=== PATIENT | male | born 1955 | race Caucasian/White ===

== ENCOUNTER 2017-11-24 10:35 | Inpatient (IN) | payer MEDICAID ==
--- OUTSIDE RECORDS SUMMARY | 2017-11-24 14:58 | XMS REPORT ---
:1955 External Reference #:[id number] [facility] Address [address], [address] [place] [address] Phone [phone] Care Team Providers Name Role Phone Anil Sood MD Care Team Information Spa Technician Unavailable Anil Sood MD Primary Care Physician Unavailable Payers Type Date Identification Numbers Payment Provider Subscriber Medicaid Policy Number: [id number] Medicaid [employer] Name: 1 1 [address] PayID: [id number] [place] [address] Problems Date Description Provider Status Onset: 05/22/2011 Arthralgia of the ankle and/or foot Dale Dai M.D. , Active FACS Onset: 05/22/2011 Closed fracture of lateral Dale Dai M.D., Active malleolus FACS Onset: 05/22/2011 [facility] Traumatic Dale Dai M.D., Active Fracture Of Other Bone FACS Onset: 07/01/2011 Unilateral inguinal hernia with Ernesto Correa M.D. Active gangrene Onset: 07/01/2011 Chronic paranoid schizophrenia Ernesto Correa M.D. Active Onset: 07/01/2011 Colostomy present Ernesto Correa M.D. Active Onset: 08/28/2015 Syncope and collapse Amybo Short, ANP Active Onset: 08/28/2015 Electrocardiogram abnormal Amybo Short, ANP Active Onset: 08/28/2015 High enzyme level in serum Amy Bessy Short ANP Active Onset: 08/28/2015 Essential hypertension ALMAZ Stevenson Active Onset: 08/28/2015 Schizophrenia Baljit Russ M.D. Active Onset: 10/22/2016 Constipation Miguelangel Velasquez MD,EWELINA Active Onset: 10/22/2016 Incisional hernia Miguelangel Velasquez MD,FACS Active Family History Date Family Member(s) Problem(s) Comments General Diabetes Father due to Cancer () Mother due to Congestive Heart Failure () First Brother due to Colon Cancer () Second Brother Hypertension Second Brother High Cholesterol Second Brother Diabetes First Sister due to MS () Social History Type Date Description Comments Lives With [facility] [place] Diet Patient follows no dietary restrictions Occupation Disabled Hand Dominance Right-handed Cigarette Use Never Smoked Cigarettes ETOH Use Denies alcohol use Recreational Drug Use Denies Drug Use Smoking Patient has never smoked Daily Caffeine Patient consumes minimal amounts of 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 Currently on 05/22/11. Allergies, Adverse Reactions, Alerts Date Description Reaction Status Severity Comments 05/22/2011 NKDA active Medications Medication Date Status Form Strength Qnty SIG Indications Ordering Provider Loratadine Active Tablets 10mg 30tab 1 by mouth Unknown /0000 s every day Nasal 00 Active Solution 0.65% Use qid prn Unknown Moisturizer /0000 Ibuprofen Active Tablets 400mg 1 tab every Unknown /0000 6 hours as needed Saline Nasal Active Solution 0.65% 1 sprays Unknown [place] /0000 each nostirl q 4 hrs prn Aspirin Adult Active Tablets DR 81mg 1 by mouth Unknown Low Dose /0000 every day Benztropine Active Tablets 0.5mg take 1 tab Unknown Mesylate /0000 po bid Artificial Tears Active Solution 1.4% 1-2 drops Unknown /0000 twice a day as needed Antacid Anti-Gas Active Suspension 200-200-2 30 cubic Unknown /0000 0mg/5ML centimeters by mouth every 4 hours as needed Polyethylene 00 Active Powder 1 capful Unknown Glycol 1000 /0000 (17 grams) in 8 oz of fluid twice a day Quetiapine Active Tablets 300mg 1 by mouth Unknown Fumarate /0000 every night at bedtime Lamotrigine Active Tablets 50 take 2 tabs Unknown po bid Perphenazine Active Tablets 16mg 1 by mouth Unknown twice a day Levetiracetam Active Tablets 500mg 60tab 1 tab by Unknown / s mouth twice a day Omeprazole Active Capsules DR 20mg 1 by mouth Unknown every day Acetaminophen Active Tablets 325mg 120ta 2 by mouth Unknown bs every 4 hours as needed for pain Docusate Sodium Active Capsules 100mg take 1 Unknown capsule by mouth twice daily as needed for constipatio n Fluticasone Active Suspension 50mcg/Act 1 spray Unknown Propionate Nasal into each [place] 24- Hour nostril twice a day as needed Azelastine HCL Active Solution 0.1% use 1 spray Unknown (Nasal) both nostrils twice a day as needed Bismuth Citrate Active Powder 30 cc by Unknown mouth every 4 hrs as needed Miralax 11/04 Hx Powder [id number] 1unit day before s procedure: [facility], - at 6pm bianca LUKE,FACS 02/11 bottle in 64 ounce gatorade. drink a 8 ounce glass every 15-20 mins until gone. Dulcolax 11/[address] 5mg 4tabs 2 tablets taken at [facility], - 6pm and 9pm ,FACS 02/11 the before the procedure Lisinopril 09/30 Hx Tablets 2.5mg 1 by mouth every day MD Haja - at bedtime 11/26 Lisinopril Hx Tablets 5mg 1 po qd - 09/30 Lipitor Hx Tablets 10mg 90tab 1 po qd s - 06/[address] 30mg 60cap 1 po qd Unknown s - 06/19 Singulair Hx Tablets 10mg 1 po qhs Flonase Hx Suspension 50mcg/Act 1 intranasal - qd 06/19 Prozac Hx Capsules 40mg 1 po qd Colace 00 Hx Capsules 100mg 30cap 1 po bid Unknown / s - 06/19 Multivitamins 00/ Hx Capsules 1 by mouth Unknown /0000 every day - 06/19 Tylenol Hx Tablets 325mg 2 by mouth Unknown /0000 every 4 - hours as 11/03 Haloperidol 00 Hx Tablets 1mg three times Unknown /0000 a day as needed Protonix Hx Tablets DR 40mg 30tab 1 po qd Unknown / s Trifluoperazine Hx Tablets 10mg every night Unknown HCL /0000 Trazodone HCL Hx Tablets 25mg 1 po qhs Unknown / Geodon Hx Capsules 80mg tid Unknown / - 08/06 Mylanta Hx Suspension 200-200-2 30 Unknown / 0mg/5ML milliliters by mouth every 4 hours as needed Multi Vitamin Hx Tablets I PO qd Unknown Daily /0000 Colace Hx Capsules 100mg 60cap 1 by mouth Unknown / s twice a day - 10/[address] 20mg 30cap 1 by mouth Unknown / s every day Metformin HCL ER Hx Tablets ER 500mg 30tab 1 by mouth Unknown /0000 24HR s every day Dulcolax Hx Tablets DR 5mg 2 PO Q 3 Unknown / Day prn Artificial Tears Hx Solution 0.1-0.3% 1 Drop tid Unknown /0000 To OU prn Sertraline HCL Hx Tablets 100mg 30tab 1 by mouth Unknown / s every day Miralax Hx Packet [id number] 17g by Unknown /0000 mouth twice a day as needed constipatio n. Seroquel Hx Tablets 100mg 1 by mouth Unknown /0000 at bedtime - 10/22 Clotrimazole Hx Cream 1% apply to Unknown /0000 affected area three times a day Keppra Hx Tablets 500mg 1 Tab PO Unknown /0000 bid - 10/22 Pantoprazole Hx Solution 40mg 1 by mouth Unknown Sodium /0000 Rec every day - 11/03 Miralax Hx Packet [id number] 17g by Unknown /0000 mouth twice - a day as 11/04 constipatio n. Vital Signs Date Vital Result Comment 11/03/2017 BP Systolic Sitting Right Arm 144 mmHg Pt hasn't had food or meds today BP Diastolic Sitting Right Arm 80 mmHg Pt hasn't had food or meds today Body Temperature 97.3 F Heart Rate 80 /min Respiratory Rate 17 /min Height 73 inches 6'1" Weight 244.00 lb BMI (Body Mass Index) 32.2 kg/m2 BSA (Body Surface Area) 2.34 m2 Ashley body weight in kilograms 83 09/24/2017 Height 73 inches 6'1" Weight 214.00 lb BMI (Body Mass Index) 28.2 kg/m2 BSA (Body Surface Area) 2.21 m2 Ashley body weight in kilograms 83 02/11/2017 BP Systolic 112 mmHg BP Diastolic 78 mmHg Height 73 inches 6'1" Weight 214.00 lb BMI (Body Mass Index) 28.2 kg/m2 BSA (Body Surface Area) 2.21 m2 Ashley body weight in kilograms 83 11/26/2016 BP Systolic 124 mmHg BP Diastolic 76 mmHg Height 73 inches 6'1" Weight 195.00 lb BMI (Body Mass Index) 25.7 kg/m2 BSA (Body Surface Area) 2.13 m2 Ashley body weight in kilograms 83 10/22/2016 BP Systolic 130 mmHg BP Diastolic 78 mmHg Height 73 inches 6'1" Weight 197.00 lb BMI (Body Mass Index) 26.0 kg/m2 BSA (Body Surface Area) 2.14 m2 Ashley body weight in kilograms 83 10/13/2016 BP Systolic 138 mmHg BP Diastolic 88 mmHg Height 73 inches 6'1" Weight 193.00 lb BMI (Body Mass Index) 25.5 kg/m2 BSA (Body Surface Area) 2.12 m2 09/30/2016 BP Systolic Sitting Left Arm 104 mmHg BP Diastolic Sitting Left Arm 68 mmHg Heart Rate 97 /min Respiratory Rate 17 /min Height 73 inches 6'1" Weight 187.00 lb BMI (Body Mass Index) 24.7 kg/m2 BSA (Body Surface Area) 2.09 m2 08/28/2015 BP Systolic Sitting Right Arm 120 mmHg BP Diastolic Sitting Right Arm 62 mmHg Heart Rate 80 /min Respiratory Rate 16 /min Height 73 inches 6'1" Weight 187.00 lb BMI (Body Mass Index) 24.7 kg/m2 BSA (Body Surface Area) 2.09 m2 08/07/2015 BP Systolic Sitting Left Arm 112 mmHg BP Diastolic Sitting Left Arm 58 mmHg Heart Rate 82 /min Height 73 inches 6'1" Weight 190.00 lb BMI (Body Mass Index) 25.1 kg/m2 BSA (Body Surface Area) 2.11 m2 11/29/2014 Height 73 inches 6'1" Weight 189.00 lb BMI (Body Mass Index) 24.9 kg/m2 BSA (Body Surface Area) 2.10 m2 08/23/2014 BP Systolic Sitting Right Arm 97 mmHg BP Diastolic Sitting Right Arm 59 mmHg Heart Rate 82 /min Respiratory Rate 18 /min Height 73 inches 6'1" Weight 194.00 lb BMI (Body Mass Index) 25.6 kg/m2 BSA (Body Surface Area) 2.12 m2 06/20/2011 Height 71 inches 5'11", Estimated Weight 235.00 lb Estimated BMI (Body Mass Index) 32.8 kg/m2 Results Test Date Test Result H/L Range Note Laboratory test finding 03/18/2016 Glucose,Bedside 104 mg/dL 70-110 1 Laboratory test finding 09/30/2014 Vancomycin,Trough 5.0 ug/mL Low 15.0- 20.0 2 Basic Metabolic Panel 09/30/2014 Glucose 80 mg/dL 74-106 BUN 10 mg/dL 7-18 Creatinine 1.2 mg/dL 0.6-1.3 Glom Filtration Rate, Estimate >60 mL/min >60 If >60 mL/min >60 3 BUN/Creat 8.3 ratio Sodium 138 mmol/L 136-145 Potassium 4.5 mmol/L 3.5-5.1 Chloride 102 mmol/L 98-107 Carbon Dioxide 33 mmol/L High 21-32 Anion Gap 3 mEq/L Low 8-16 Calcium 9.4 mg/dL 8.5-10.1 Basic Metabolic Panel 09/29/2014 Glucose 86 mg/dL 74-106 BUN 12 mg/dL 7-18 Creatinine 1.2 mg/dL 0.6-1.3 Glom Filtration Rate, Estimate >60 mL/min >60 If >60 mL/min >60 4 BUN/Creat 10.0 ratio Sodium 136 mmol/L 136-145 Potassium 4.5 mmol/L 3.5-5.1 Chloride 101 mmol/L 98-107 Carbon Dioxide 30 mmol/L 21-32 Anion Gap 5 mEq/L Low 8-16 Calcium 9.0 mg/dL 8.5-10.1 Laboratory test finding 09/29/2014 Vancomycin,Trough 7.2 ug/mL Low 15.0- 20.0 Laboratory test finding 09/28/2014 Osmolality,Urine 108 mOsm/kg Low 250- 900 Basic Metabolic Panel 09/28/2014 Glucose 102 mg/dL 74-106 BUN 13 mg/dL 7-18 Creatinine 1.4 mg/dL High 0.6-1.3 Glom Filtration Rate, Estimate 55 mL/min >60 If >60 mL/min >60 5 BUN/Creat 9.2 ratio Sodium 136 mmol/L 136-145 Potassium 4.5 mmol/L 3.5-5.1 Chloride 101 mmol/L 98-107 Carbon Dioxide 30 mmol/L 21-32 Anion Gap 5 mEq/L Low 8-16 Calcium 8.8 mg/dL 8.5-10.1 CBC 09/28/2014 White Blood Count 9.3 K/uL 3.4-10.5 Red Blood Count 4.41 M/uL 4.20-5.80 Hemoglobin 13.2 gm/dL 12.8-17.0 Hematocrit 38.7 % 38.0-48.0 Mean Cell Volume 87.8 fl 80.0-96.0 Mean Corpuscular HGB 29.9 pg 27.0-33.0 Mean Corpuscular HGB Conc 34.1 g/dL 31.7-36.0 Platelet Count 239 K/uL 150-400 Red Cell Distri Width %CV 14.0 % 11.6-15.8 Mean Platelet Volume 9.2 fL 6.6-10.6 Laboratory test finding 09/28/2014 Sodium 139 mmol/L 136-145 Laboratory test finding 09/27/2014 Urine Sodium, Random 61 mEq/L Urinalysis With Microscopic 09/27/2014 Urine Color YELLOW Yellow Urine Clarity CLEAR Clear Urine Glucose - Dipstick NEGATIVE mg/dL Negative Urine Bilirubin - Dipstick NEGATIVE Negative Urine Ketone NEGATIVE mg/dL Negative Urine Specific [place] 1.010 1.010-1.030 Urine Blood LARGE High Negative Urine PH 7.5 6.5-7.5 Urine Protein - Dipstick NEGATIVE mg/dL Negative Urine Urobilinogen - Dipstick 0.2 E.U./dL 0.2-1.0 Urine Nitrite - Dipstick POSITIVE High Negative Urine Leuk Esterase MODERATE High Negative Urine RBC 0-2 rbc/hpf 0-2 Urine WBC 2-5 wbc/hpf 0-7 Urine Epithelial Cells NONE SEEN NONESEEN/lpf Urine Bacteria MODERATE NONESEEN High Urine Amorph Sediment SMALL Negative Laboratory test finding 09/27/2014 Urine Screen See Note 6 Basic Metabolic Panel 09/27/2014 Glucose 90 mg/dL 74-106 BUN 13 mg/dL 7-18 Creatinine 1.6 mg/dL High 0.6-1.3 Glom Filtration Rate, Estimate 47 mL/min >60 If 57 mL/min >60 7 BUN/Creat 8.1 ratio Sodium 137 mmol/L 136-145 Potassium 4.5 mmol/L 3.5-5.1 Chloride 103 mmol/L 98-107 Carbon Dioxide 28 mmol/L 21-32 Anion Gap 6 mEq/L Low 8-16 Calcium 8.6 mg/dL 8.5-10.1 Basic Metabolic Panel 09/27/2014 Glucose 77 mg/dL 74-106 BUN 12 mg/dL 7-18 Creatinine 1.1 mg/dL 0.6-1.3 Glom Filtration Rate, Estimate >60 mL/min >60 If >60 mL/min >60 8 BUN/Creat 10.9 ratio Sodium 136 mmol/L 136-145 Potassium 4.6 mmol/L 3.5-5.1 Chloride 104 mmol/L 98-107 Carbon Dioxide 24 mmol/L 21-32 Anion Gap 8 mEq/L 8-16 Calcium 8.5 mg/dL 8.5-10.1 Basic Metabolic Panel 09/27/2014 Glucose 88 mg/dL 74-106 BUN 13 mg/dL 7-18 Creatinine 1.2 mg/dL 0.6-1.3 Glom Filtration Rate, Estimate >60 mL/min >60 If >60 mL/min >60 9 BUN/Creat 10.8 ratio Sodium 138 mmol/L 136-145 Potassium 4.4 mmol/L 3.5-5.1 Chloride 105 mmol/L 98-107 Carbon Dioxide 27 mmol/L 21-32 Anion Gap 6 mEq/L Low 8-16 Calcium 8.5 mg/dL 8.5-10.1 Basic Metabolic Panel 09/26/2014 Glucose 124 mg/dL High 74-106 BUN 11 mg/dL 7-18 Creatinine 1.1 mg/dL 0.6-1.3 Glom Filtration Rate, Estimate >60 mL/min >60 If >60 mL/min >60 10 BUN/Creat 10.0 ratio Sodium 129 mmol/L Low 136-145 Potassium 4.2 mmol/L 3.5-5.1 Chloride 96 mmol/L Low 98-107 Carbon Dioxide 23 mmol/L 21-32 Anion Gap 10 mEq/L 8-16 Calcium 7.9 mg/dL Low 8.5-10.1 Basic Metabolic Panel 09/26/2014 Glucose 101 mg/dL 74-106 BUN 13 mg/dL 7-18 Creatinine 1.0 mg/dL 0.6-1.3 Glom Filtration Rate, Estimate >60 mL/min >60 If >60 mL/min >60 11 BUN/Creat 13.0 ratio Sodium 123 mmol/L Low 136-145 12 Potassium 4.6 mmol/L 3.5-5.1 Chloride 91 mmol/L Low 98-107 Carbon Dioxide 25 mmol/L 21-32 Anion Gap 7 mEq/L Low 8-16 Calcium 8.0 mg/dL Low 8.5-10.1 Blood Culture 09/26/2014 Blood Culture Aerobic See Note 13 Blood Culture Anaerobic See Note 14 Laboratory test finding 09/26/2014 Uric Acid 3.6 mg/dL 3.5-7.2 15 Blood Culture 09/26/2014 Blood Culture Aerobic See Note - 16 Blood Culture Anaerobic See Note - 17 Drugs Of Abuse-Urine Screen 7 09/26/2014 Amphetamines (Urine) Negative Barbiturates (Urine) Negative Benzodiazepines (Urine) Negative Cannabinoids (Urine) Negative Cocaine Metabolite (Urine) Negative Methadone (Urine) Negative Opiates (Urine) POSITIVE High Please Note # 18 Urine Cutoffs * 19 Urinalysis With Microscopic 09/26/2014 Urine Color YELLOW Yellow Urine Clarity CLEAR Clear Urine Glucose - Dipstick NEGATIVE mg/dL Negative Urine Bilirubin - Dipstick NEGATIVE Negative Urine Ketone NEGATIVE mg/dL Negative Urine Specific [place] 1.015 1.010-1.030 Urine Blood TRACE Negative Urine PH 5.5 Low 6.5-7.5 Urine Protein - Dipstick NEGATIVE mg/dL Negative Urine Urobilinogen - Dipstick 0.2 E.U./dL 0.2-1.0 Urine Nitrite - Dipstick POSITIVE High Negative Urine Leuk Esterase SMALL High Negative Urine RBC 0-2 rbc/hpf 0-2 Urine WBC 5-10 wbc/hpf 0-7 Urine Epithelial Cells FEW NONESEEN/lpf Urine Bacteria MODERATE NONESEEN High Laboratory test finding 09/26/2014 Culture If Indicated Comment See Note 20 Urine Screen See Note 21 Urine Culture See Note 22 Osmolality,Urine 489 mOsm/kg 250-900 Urine Creatinine Random 43 mg/dL Urine Sodium, Random 83 mEq/L Urine Potassium Random 17.7 mEq/L Urine Uric Acid Random 51.3 NotEstab.mg/d 23 Urine Urea Nitrogen,Random See Note 24 Laboratory test finding 09/26/2014 Aot Request Test(s) added 25 Osmolality,Serum See Note 26 Laboratory test finding 09/26/2014 Osmolality,Serum 249 mOsm/kg Low 275- 295 Comprehensive Metabolic Panel 09/26/2014 Glucose 118 mg/dL High 74-106 BUN 15 mg/dL 7-18 Creatinine 1.1 mg/dL 0.6-1.3 Glom Filtration Rate, Estimate >60 mL/min >60 If >60 mL/min >60 27 BUN/Creat 13.6 ratio Sodium 120 mmol/L Low 136-145 Potassium 4.1 mmol/L 3.5-5.1 Chloride 87 mmol/L Low 98-107 Carbon Dioxide 16 mmol/L Low 21-32 Anion Gap 17 mEq/L High 8-16 Calcium 7.8 mg/dL Low 8.5-10.1 Total Protein 6.2 g/dL Low 6.4-8.2 Albumin 3.3 g/dL Low 3.4-5.0 Globulin 2.9 g/dL 1.9-4.3 Alb/Glob 1.1 ratio Bilirubin,Total 0.2 mg/dL 0.2-1.0 Sgot/Ast 22 U/L 15-37 SGPT/Alt 25 U/L 12-78 Alkaline Phosphatase 59 U/L 45-117 Laboratory test finding 09/26/2014 Thyroid Stim Hormone 4.49 uIU/mL High 0.36-3.74 28 Ethyl Alcohol < 3.0 mg/dL CBC W/Automated Diff 09/26/2014 White Blood Count 12.2 K/uL High 3.4-10.5 Red Blood Count 4.05 M/uL Low 4.20-5.80 Hemoglobin 12.2 gm/dL Low 12.8-17.0 Hematocrit 35.0 % Low 38.0-48.0 Mean Cell Volume 86.4 fl 80.0-96.0 Mean Corpuscular HGB 30.1 pg 27.0-33.0 Mean Corpuscular HGB Conc 34.9 g/dL 31.7-36.0 Platelet Count 240 K/uL 150-400 Red Cell Distri Width SD 40.8 fl 36-51 Red Cell Distri Width %CV 13.1 % 11.6-15.8 Mean Platelet Volume 8.9 fL 6.6-10.6 Neut% 81.0 % High 33.0-73.0 Lymph % 8.7 % Low 17.0-56.0 [place] % 9.2 % 0.0-10.0 Eo% 0.9 % 0.0-5.0 Bas% 0.2 % 0.1-1.0 Neut# 9.86 K/uL High 1.8-7.0 Lymph # 1.06 K/uL Low 1.8-7.0 [place] # 1.12 K/uL High 0.0-0.8 Eos # 0.11 K/uL 0.0-0.5 Baso # 0.03 K/uL Low 0.1-0.2 Laboratory test finding 09/22/2014 Hernia Sac Non-Inguinal See Note 29 Site Laboratory test finding 11/19/2011 Thyroxine (T4) 11.9 g/dL 5.3-14.8 Thyroid Stim Hormone 5.24 uIU/mL High 0.49-4.67 Glycohemoglobin A1c 11/10/2011 Glycohemoglobin (A1c) 5.4 % 4.8-6.0 30 eAG 108 mg/dL LDL Cholesterol Profile 11/10/2011 Cholesterol 141 mg/dL 120-200 Triglycerides 88 mg/dL 16-231 HDL Cholesterol 45 mg/dL 29-83 LDL-Cholesterol 78 mg/dL 62-185 Basic Metabolic Panel 11/10/2011 Glucose 91 mg/dL 76-115 BUN 15 mg/dL 5-23 Creatinine 1.2 mg/dL 0.5-1.4 Glom Filtration Rate, Estimate >60 mL/min >60 If >60 mL/min >60 31 BUN/Creat 12.5 ratio Sodium 137 mmol/L 136-145 Potassium 4.6 mmol/L 3.5-5.1 Chloride 102 mmol/L 98-107 Carbon Dioxide 28 mEq/L 18-29 Anion Gap 12 mEq/L 8-16 Calcium 9.3 mg/dL 8.5-10.1 CBC 08/18/2011 White Blood Count 7.7 K/uL 3.4-10.5 Red Blood Count 4.28 M/uL 4.20-5.80 Hemoglobin 11.9 gm/dL Low 12.8-17.0 Hematocrit 35.3 % Low 38.0-48.0 Mean Cell Volume 82.5 fl 80.0-96.0 Mean Corpuscular HGB 27.8 pg 27.0-33.0 Mean Corpuscular HGB Conc 33.7 g/dL 31.7-36.0 Platelet Count 294 K/uL 150-400 Red Cell Distri Width %CV 13.2 % 11.6-15.8 Mean Platelet Volume 8.9 fL 6.6-10.6 Laboratory test finding 08/18/2011 Thyroid Stim Hormone 6.05 uIU/mL High 0.49-4.67 Free T4 1.00 ng/dL 0.71-1.85 Comprehensive Metabolic Panel 08/18/2011 Glucose 83 mg/dL 76-115 BUN 11 mg/dL 5-23 Creatinine 0.9 mg/dL 0.5-1.4 Glom Filtration Rate, Estimate >60 mL/min >60 If >60 mL/min >60 32 BUN/Creat 12.2 ratio Sodium 131 mmol/L Low 136-145 Potassium 4.5 mmol/L 3.5-5.1 Chloride 95 mmol/L Low 98-107 Carbon Dioxide 27 mEq/L 18-29 Anion Gap 14 mEq/L 8-16 Calcium 9.0 mg/dL 8.5-10.1 Total Protein 6.5 g/dL 6.3-8.0 Albumin 3.3 g/dL Low 3.5-5.0 Globulin 3.2 g/dL 1.9-4.3 Alb/Glob 1.0 ratio Bilirubin,Total 0.3 mg/dL 0.2-1.2 Sgot/Ast 7 U/L Low 16-40 SGPT/Alt 18 U/L Low 30-65 Alkaline Phosphatase 51 U/L 50-136 CBC 07/14/2011 White Blood Count 7.0 K/uL 3.4-10.5 Red Blood Count 3.87 M/uL Low 4.20-5.80 Hemoglobin 10.9 gm/dL Low 12.8-17.0 Hematocrit 34.9 % Low 38.0-48.0 Mean Cell Volume 90.2 fl 80.0-96.0 Mean Corpuscular HGB 28.2 pg 27.0-33.0 Mean Corpuscular HGB Conc 31.2 g/dL Low 31.7-36.0 Platelet Count 303 K/uL 150-400 Red Cell Distri Width %CV 13.8 % 11.6-15.8 Mean Platelet Volume 9.1 fL 6.6-10.6 CBC 07/11/2011 White Blood Count 7.8 K/uL 3.4-10.5 Red Blood Count 3.75 M/uL Low 4.20-5.80 Hemoglobin 10.6 gm/dL Low 12.8-17.0 Hematocrit 33.3 % Low 38.0-48.0 Mean Cell Volume 88.8 fl 80.0-96.0 Mean Corpuscular HGB 28.3 pg 27.0-33.0 Mean Corpuscular HGB Conc 31.8 g/dL 31.7-36.0 Platelet Count 226 K/uL 150-400 Red Cell Distri Width %CV 13.5 % 11.6-15.8 Mean Platelet Volume 9.2 fL 6.6-10.6 Basic Metabolic Panel 07/10/2011 Glucose 76 mg/dL 76-115 BUN 11 mg/dL 5-23 Creatinine 1.0 mg/dL 0.5-1.4 Glom Filtration Rate, Estimate >60 mL/min >60 If >60 mL/min >60 33 BUN/Creat 11.0 ratio Sodium 138 mmol/L 136-145 Potassium 3.9 mmol/L 3.5-5.1 Chloride 101 mmol/L 98-107 Carbon Dioxide 30 mEq/L High 18-29 Anion Gap 11 mEq/L 8-16 Calcium 8.5 mg/dL 8.5-10.1 CBC 07/10/2011 White Blood Count 7.7 K/uL 3.4-10.5 Red Blood Count 3.57 M/uL Low 4.20-5.80 Hemoglobin 10.1 gm/dL Low 12.8-17.0 Hematocrit 31.8 % Low 38.0-48.0 Mean Cell Volume 89.1 fl 80.0-96.0 Mean Corpuscular HGB 28.3 pg 27.0-33.0 Mean Corpuscular HGB Conc 31.8 g/dL 31.7-36.0 Platelet Count 221 K/uL 150-400 Red Cell Distri Width %CV 14.0 % 11.6-15.8 Mean Platelet Volume 9.0 fL 6.6-10.6 Anaerobic Culture W/ GR Stain 07/08/2011 Anaerobic Culture W/ GR See Note 34 Stain Gram Stain; Anaerobic Specimen See Note 35 Anaerobic Culture See Note 36 Routine Culture W/ Gram Stain 07/08/2011 Gram Stain See Note 37 Aerobic Culture See Note 38 Laboratory test 07/08/2011 Colon PRTL See Note 39 finding Resection,Non-Tumor CBC 07/08/2011 White Blood Count 7.7 K/uL 3.4-10.5 Red Blood Count 4.88 M/uL 4.20-5.80 Hemoglobin 14.0 gm/dL 12.8-17.0 Hematocrit 42.7 % 38.0-48.0 Mean Cell Volume 87.5 fl 80.0-96.0 Mean Corpuscular HGB 28.7 pg 27.0-33.0 Mean Corpuscular HGB Conc 32.8 g/dL 31.7-36.0 Platelet Count 317 K/uL 150-400 Red Cell Distri Width %CV 13.8 % 11.6-15.8 Mean Platelet Volume 8.9 fL 6.6-10.6 Urine Screen 07/03/2011 Urine Color STRAW Yellow Urine Clarity CLEAR Clear Urine Glucose - Dipstick NEGATIVE mg/dL Negative Urine Bilirubin - Dipstick NEGATIVE Negative Urine Ketone NEGATIVE mg/dL Negative Urine Specific [place] <=1.005 Low 1.010-1.030 Urine Blood NEGATIVE Negative Urine PH 5.0 Low 6.5-7.5 Urine Protein - Dipstick NEGATIVE mg/dL Negative Urine Urobilinogen - Dipstick 0.2 E.U./dL 0.2-1.0 Urine Nitrite - Dipstick NEGATIVE Negative Urine Leuk Esterase NEGATIVE Negative Liver Function Tests 07/03/2011 Total Protein 6.7 g/dL 6.3-8.0 Albumin 3.1 g/dL Low 3.5-5.0 Globulin 3.6 g/dL 1.9-4.3 Alb/Glob 0.9 ratio Bilirubin,Total 0.2 mg/dL 0.2-1.2 Bilirubin,Direct < 0.1 mg/dL Low 0.1-0.4 Bilirubin,Indirect 0.1 mg/dL 0.0-0.9 Sgot/Ast 11 U/L Low 16-40 SGPT/Alt 16 U/L Low 30-65 Alkaline Phosphatase 74 U/L 50-136 Basic Metabolic Panel 07/03/2011 Glucose 83 mg/dL 76-115 BUN 21 mg/dL 5-23 Creatinine 1.0 mg/dL 0.5-1.4 Glom Filtration Rate, Estimate >60 mL/min >60 If >60 mL/min >60 40 BUN/Creat 21.0 ratio Sodium 140 mmol/L 136-145 Potassium 4.9 mmol/L 3.5-5.1 Chloride 103 mmol/L 98-107 Carbon Dioxide 30 mEq/L High 18-29 Anion Gap 12 mEq/L 8-16 Calcium 9.1 mg/dL 8.5-10.1 CBS W/Automated Diff 07/03/2011 White Blood Count 7.4 K/uL 3.4-10.5 Red Blood Count 4.56 M/uL 4.20-5.80 Hemoglobin 12.9 gm/dL 12.8-17.0 Hematocrit 40.1 % 38.0-48.0 Mean Cell Volume 87.9 fl 80.0-96.0 Mean Corpuscular HGB 28.3 pg 27.0-33.0 Mean Corpuscular HGB Conc 32.2 g/dL 31.7-36.0 Platelet Count 293 K/uL 150-400 Red Cell Distri Width SD 44.2 fl 36-51 Red Cell Distri Width %CV 14.0 % 11.6-15.8 Mean Platelet Volume 8.9 fL 6.6-10.6 Neut% 64.0 % 33.0-73.0 Lymph % 20.6 % 17.0-56.0 [place] % 12.7 % High 0.0-10.0 Eo% 2.3 % 0.0-5.0 Bas% 0.4 % 0.1-1.0 Neut# 4.72 K/uL 1.8-7.0 Lymph # 1.52 K/uL 1.2-4.0 [place] # 0.94 K/uL High 0.0-0.6 Eos # 0.17 K/uL 0.0-0.5 Baso # 0.03 K/uL Low 0.1-0.2 Laboratory test finding 06/27/2011 Albumin 3.1 g/dL Low 3.5-5.0 CBS W/Automated Diff 05/15/2011 White Blood Count 12.5 K/uL High 3.4-10.5 Red Blood Count 4.05 M/uL Low 4.20-5.80 Hemoglobin 11.5 gm/dL Low 12.8-17.0 Hematocrit 36.1 % Low 38.0-48.0 Mean Cell Volume 89.1 fl 80.0-96.0 Mean Corpuscular HGB 28.4 pg 27.0-33.0 Mean Corpuscular HGB Conc 31.9 g/dL 31.7-36.0 Platelet Count 472 K/uL High 150-400 Red Cell Distri Width %CV 16.0 % High 11.6-15.8 Mean Platelet Volume 9.0 fL 6.6-10.6 Neut% 80.8 % High 33.0-73.0 Lymph % 9.7 % Low 17.0-56.0 [place] % 8.0 % 0.0-10.0 Eo% 1.2 % 0.0-5.0 Bas% 0.3 % 0.1-1.0 Neut# 10.13 K/uL High 1.8-7.0 Lymph # 1.22 K/uL 1.2-4.0 [place] # 1.00 K/uL High 0.0-0.6 Eos # 0.15 K/uL 0.0-0.5 Baso # 0.04 K/uL Low 0.1-0.2 Red Cell Distri Width SD 48.5 fl 36-51 CBS W/Automated Diff 05/14/2011 White Blood Count 12.5 K/uL High 3.4-10.5 Red Blood Count 3.67 M/uL Low 4.20-5.80 Hemoglobin 10.7 gm/dL Low 12.8-17.0 Hematocrit 32.2 % Low 38.0-48.0 Mean Cell Volume 87.7 fl 80.0-96.0 Mean Corpuscular HGB 29.2 pg 27.0-33.0 Mean Corpuscular HGB Conc 33.2 g/dL 31.7-36.0 Platelet Count 368 K/uL 150-400 Red Cell Distri Width %CV 15.5 % 11.6-15.8 Mean Platelet Volume 9.3 fL 6.6-10.6 Red Cell Distri Width SD 46.1 fl 36-51 Differential-WBC Confirm 05/14/2011 Total Cells Counted 100 #CELLS Myelocyte% 1 % High -0 Band% 1 % 0-8 Neutrophils% 83 % High 33-73 Lymph% 11 % Low 17-56 Atypical Lymph% 1 % 0-7 Monocyte% 1 % 0-10 Eosinophil% 2 % 0-5 Platelet Estimate NORMAL Polychromasia 0-1+ Ovalocytes 0-1+ Toxic Granulation 1+ Meservey Cells 0-1+ Differential-WBC Confirm See Note 41 Basic Metabolic Panel 05/12/2011 Glucose 98 mg/dL 76-115 BUN 13 mg/dL 5-23 Creatinine 0.9 mg/dL 0.5-1.4 Glom Filtration Rate, Estimate >60 mL/min >60 If >60 mL/min >60 42 BUN/Creat 14.4 ratio Sodium 140 mmol/L 136-145 Potassium 3.7 mmol/L 3.5-5.1 Chloride 105 mmol/L 98-107 Carbon Dioxide 27 mEq/L 18-29 Anion Gap 12 mEq/L 8-16 Calcium 8.5 mg/dL 8.5-10.1 CBC 05/12/2011 White Blood Count 16.3 K/uL High 3.4-10.5 Red Blood Count 4.19 M/uL Low 4.20-5.80 Hemoglobin 12.0 gm/dL Low 12.8-17.0 Hematocrit 35.9 % Low 38.0-48.0 Mean Cell Volume 85.7 fl 80.0-96.0 Mean Corpuscular HGB 28.6 pg 27.0-33.0 Mean Corpuscular HGB Conc 33.4 g/dL 31.7-36.0 Platelet Count 406 K/uL High 150-400 Red Cell Distri Width %CV 14.5 % 11.6-15.8 Mean Platelet Volume 9.2 fL 6.6-10.6 Basic Metabolic Panel 05/10/2011 Glucose 97 mg/dL 76-115 BUN 16 mg/dL 5-23 Creatinine 0.9 mg/dL 0.5-1.4 Glom Filtration Rate, Estimate >60 mL/min >60 If >60 mL/min >60 43 BUN/Creat 17.7 ratio Sodium 140 mmol/L 136-145 Potassium 3.2 mmol/L Low 3.5-5.1 Chloride 106 mmol/L 98-107 Carbon Dioxide 27 mEq/L 18-29 Anion Gap 10 mEq/L 8-16 Calcium 7.8 mg/dL Low 8.5-10.1 Laboratory test finding 05/10/2011 Thyroid Stim Hormone 3.51 uIU/mL 0.49- 4.67 CBS W/Automated Diff 05/10/2011 White Blood Count 13.2 K/uL High 3.4-10.5 Red Blood Count 3.92 M/uL Low 4.20-5.80 Hemoglobin 11.3 gm/dL Low 12.8-17.0 Hematocrit 33.7 % Low 38.0-48.0 Mean Cell Volume 86.0 fl 80.0-96.0 Mean Corpuscular HGB 28.8 pg 27.0-33.0 Mean Corpuscular HGB Conc 33.5 g/dL 31.7-36.0 Platelet Count 290 K/uL 150-400 Red Cell Distri Width %CV 13.8 % 11.6-15.8 Mean Platelet Volume 9.6 fL 6.6-10.6 Red Cell Distri Width SD 42.2 fl 36-51 Differential-WBC Confirm 05/10/2011 Total Cells Counted 100 #CELLS Myelocyte% 2 % High -0 Metamyelocyte% 2 % High -0 Neutrophils% 80 % High 33-73 Lymph% 4 % Low 17-56 Monocyte% 12 % High 0-10 Platelet Estimate NORMAL Polychromasia 0-1+ Hypochromia 0-1+ Anisocytosis 1+ Ovalocytes 1+ Toxic Granulation 0-1+ Basic Metabolic Panel 05/08/2011 Glucose 95 mg/dL 76-115 BUN 21 mg/dL 5-23 Creatinine 1.1 mg/dL 0.5-1.4 Glom Filtration Rate, Estimate >60 mL/min >60 If >60 mL/min >60 44 BUN/Creat 19.0 ratio Sodium 148 mmol/L High 136-145 Potassium 3.3 mmol/L Low 3.5-5.1 Chloride 113 mmol/L High 98-107 Carbon Dioxide 26 mEq/L 18-29 Anion Gap 12 mEq/L 8-16 Calcium 7.9 mg/dL Low 8.5-10.1 CBC W/Automated Diff 05/08/2011 White Blood Count 10.5 K/uL 3.4-10.5 Red Blood Count 3.59 M/uL Low 4.20-5.80 Hemoglobin 10.3 gm/dL Low 12.8-17.0 Hematocrit 32.0 % Low 38.0-48.0 Mean Cell Volume 89.1 fl 80.0-96.0 Mean Corpuscular HGB 28.7 pg 27.0-33.0 Mean Corpuscular HGB Conc 32.2 g/dL 31.7-36.0 Platelet Count 275 K/uL 150-400 Red Cell Distri Width %CV 14.4 % 11.6-15.8 Mean Platelet Volume 9.2 fL 6.6-10.6 Red Cell Distri Width SD 45.5 fl 36-51 Differential-WBC Confirm 05/08/2011 Total Cells Counted 100 #CELLS Band% 7 % 0-8 Neutrophils% 75 % High 33-73 Lymph% 8 % Low 17-56 Monocyte% 10 % 0-10 Platelet Estimate NORMAL RBC Morphology NORMAL Basic Metabolic Panel 05/05/2011 Glucose 92 mg/dL 76-115 BUN 20 mg/dL 5-23 Creatinine 1.0 mg/dL 0.5-1.4 Glom Filtration Rate, Estimate >60 mL/min >60 If >60 mL/min >60 45 BUN/Creat 20.0 ratio Sodium 143 mmol/L 136-145 Potassium 3.8 mmol/L 3.5-5.1 Chloride 111 mmol/L High 98-107 Carbon Dioxide 27 mEq/L 18-29 Anion Gap 9 mEq/L 8-16 Calcium 8.2 mg/dL Low 8.5-10.1 CBC 05/05/2011 White Blood Count 6.4 K/uL 3.4-10.5 Red Blood Count 3.81 M/uL Low 4.20-5.80 Hemoglobin 10.8 gm/dL Low 12.8-17.0 Hematocrit 33.8 % Low 38.0-48.0 Mean Cell Volume 88.7 fl 80.0-96.0 Mean Corpuscular HGB 28.3 pg 27.0-33.0 Mean Corpuscular HGB Conc 32.0 g/dL 31.7-36.0 Platelet Count 223 K/uL 150-400 Red Cell Distri Width %CV 14.0 % 11.6-15.8 Mean Platelet Volume 8.6 fL 6.6-10.6 Routine Culture W/ Gram Stain 05/04/2011 Gram Stain See Note 46 Aerobic Culture See Note 47 Anaerobic Culture W/ GR Stain 05/04/2011 Gram Stain; Anaerobic See Note 48 Specimen Anaerobic Culture See Note 49 Laboratory test finding 05/04/2011 Colon PRTL Resection,Non-Tumor See Note 50 1 SCHIZOPHRENIA, DIABETES, HTN, GERD, HYPERLIPIDEMIA 2 Comments to fur plucker: DOSING PER PHARMACY 3 Note: Persistent reduction for 3 months or more in an eGFR <60 mL/min/1.73 m2 defines CKD. Patients with eGFR values >/=60 mL/min/1.73 m2 may also have CKD if evidence of persistent proteinuria is present. The original MDRD equation for estimated GFR is not valid for patients less than 18 years of age. Additional information may be found at [email or web address]. 4 Note: Persistent reduction for 3 months or more in an eGFR <60 mL/min/1.73 m2 defines CKD. Patients with eGFR values >/=60 mL/min/1.73 m2 may also have CKD if evidence of persistent proteinuria is present. The original MDRD equation for estimated GFR is not valid for patients less than 18 years of age. Additional information may be found at [email or web address]. 5 Note: Persistent reduction for 3 months or more in an eGFR <60 mL/min/1.73 m2 defines CKD. Patients with eGFR values >/=60 mL/min/1.73 m2 may also have CKD if evidence of persistent proteinuria is present. The original MDRD equation for estimated GFR is not valid for patients less than 18 years of age. Additional information may be found at [email or web address]. 6 09/28/14 LAB.CKS Deleted by [facility] 7 Note: Persistent reduction for 3 months or more in an eGFR <60 mL/min/1.73 m2 defines CKD. Patients with eGFR values >/=60 mL/min/1.73 m2 may also have CKD if evidence of persistent proteinuria is present. The original MDRD equation for estimated GFR is not valid for patients less than 18 years of age. Additional information may be found at [email or web address]. 8 Note: Persistent reduction for 3 months or more in an eGFR <60 mL/min/1.73 m2 defines CKD. Patients with eGFR values >/=60 mL/min/1.73 m2 may also have CKD if evidence of persistent proteinuria is present. The original MDRD equation for estimated GFR is not valid for patients less than 18 years of age. Additional information may be found at [email or web address]. 9 Note: Persistent reduction for 3 months or more in an eGFR <60 mL/min/1.73 m2 defines CKD. Patients with eGFR values >/=60 mL/min/1.73 m2 may also have CKD if evidence of persistent proteinuria is present. The original MDRD equation for estimated GFR is not valid for patients less than 18 years of age. Additional information may be found at [email or web address]. 10 Note: Persistent reduction for 3 months or more in an eGFR <60 mL/min/1.73 m2 defines CKD. Patients with eGFR values >/=60 mL/min/1.73 m2 may also have CKD if evidence of persistent proteinuria is present. The original MDRD equation for estimated GFR is not valid for patients less than 18 years of age. Additional information may be found at [email or web address]. 11 Note: Persistent reduction for 3 months or more in an eGFR <60 mL/min/1.73 m2 defines CKD. Patients with eGFR values >/=60 mL/min/1.73 m2 may also have CKD if evidence of persistent proteinuria is present. The original MDRD equation for estimated GFR is not valid for patients less than 18 years of age. Additional information may be found at [email or web address]. 12 Result confirmed by repeat analysis. 13 NO GROWTH: FINAL REPORT 14 NO GROWTH: FINAL REPORT 15 CHECKED + CALLED NOAH TO ABDULLAHI Nguyen AT 1224 09/26/14 16 NO GROWTH: FINAL REPORT 17 NO GROWTH: FINAL REPORT 18 #THIS URINE SPECIMEN SCREENED POSITIVE FOR ONE OF MORE DRUG CLASSES. POSITIVE FINDINGS ARE UNCONFIRMED. CONFIRMATORY TESTING IS SUGGESTED IF FINDINGS ARE UNEXPECTED. PLEASE CONTACT THE LABORATORY IF CONFIRMATORY TESTING IS DESIRED. 19 *THE SUBMITTED URINE SPECIMEN WAS SCREENED AT THE LISTED [facility] DRUG CLASS INITIAL TEST LEVEL Amphetamines 1000 ng/mL Barbiturates 200 ng/mL Benzodiazepines 200 ng/mL Cannabinoids 50 ng/mL Cocaine Metabolite 300 ng/mL Methadone 300 ng/mL Opiates 300 ng/mL 20 CULTURE TO FOLLOW 09/26/14 LAB.EMM1 Deleted by [facility] [place] 22 Organism 1 ! MIXED URETHRAL NINA Quantity ! > 100,000 CFU/mL SPECIMEN IS A MIX OF GRAM NEGATIVE AND GRAM POSITIVE ORGANISMS. UNABLE TO DETERMINE WHICH ORGANISMS ARE FROM THE URINARY TRACT OR THE RESULT OF SKIN/COMMENSAL CONTAMINATION DURING COLLECTION. SUGGEST REPEAT SPECIMEN IF CLINICALLY INDICATED. HOLDING ISOLATE IN MICROBIOLOGY LAB. PLEASE CALL [phone] IF FULL ID/OR SUSCEPTIBILITY DESIRED. 23 09/26/14 LAB.RAP SENT OUT, PUT ON SEPARATE REQ 24 09/26/14 LAB.RAP SENT OUT, PUT ON SEPARATE REQ 25 Tests: osmolality, uric acid, Instructions: 26 ADDED TO C242 BLOOD TESTS 27 Note: Persistent reduction for 3 months or more in an eGFR <60 mL/min/1.73 m2 defines CKD. Patients with eGFR values >/=60 mL/min/1.73 m2 may also have CKD if evidence of persistent proteinuria is present. The original MDRD equation for estimated GFR is not valid for patients less than 18 years of age. Additional information may be found at [email or web address]. 28 CHECKED + CALLED NOAH TO ABDULLAHI Nguyen AT 1224 09/26/14 29 OPERATION/PROCEDURE Repair of ventral incisional hernias x 2 with mesh. DIAGNOSIS: "VENTRAL HERNIA SAC": HERNIAL SAC. Maverick GROSS Received in formalin labeled, "VENTRAL HERNIA SAC" are two pieces of ferguson- purple rubbery fibrous tissue with a smooth serosal lining measuring 4.2 x 3.4 x 1.0 cm. and 4.8 x 3.9 x 2.4 cm. No tumor, necrosis is grossly seen. Pail Tester sections are submitted in one block. DEBBY/destini MICROSCOPIC Sections show mesothelial lined tissue with dilated capillaries in a delicate fibrous and mature adipose stroma. PRE OPERATIVE DIAGNOSIS Left abdomen incisional hernia REVIEW CODE CODE: I Signed Electronically signed NADIA CARL MD 09/26/14 1130 30 A1c value between 5.7% and 6.4% is considered at increased risk for diabetes. A1c value greater than 6.5 % is considered essentially diagnostic for Type II diabetes. Current guidelines recommend a treatment goal of <7% for diabetic patients. This method will measure glycosylated hemoglobin variants, HbS, HbG, HbH, HbWayne, HbC, HbE, etc. Other hemoglobin- opathies may give incorrect results with this test. 31 Note: Persistent reduction for 3 months or more in an eGFR <60 mL/min/1.73 m2 defines CKD. Patients with eGFR values >/=60 mL/min/1.73 m2 may also have CKD if evidence of persistent proteinuria is present. The original MDRD equation for estimated GFR is not valid for patients less than 18 years of age. Additional information may be found at [email or web address]. 32 Note: Persistent reduction for 3 months or more in an eGFR <60 mL/min/1.73 m2 defines CKD. Patients with eGFR values >/=60 mL/min/1.73 m2 may also have CKD if evidence of persistent proteinuria is present. The original MDRD equation for estimated GFR is not valid for patients less than 18 years of age. Additional information may be found at [email or web address]. 33 Note: Persistent reduction for 3 months or more in an eGFR <60 mL/min/1.73 m2 defines CKD. Patients with eGFR values >/=60 mL/min/1.73 m2 may also have CKD if evidence of persistent proteinuria is present. The original MDRD equation for estimated GFR is not valid for patients less than 18 years of age. Additional information may be found at [email or web address]. 34 CULTURE IN PROGRESS 35 GRAM STAIN ! FEW WHITE BLOOD CELLS ! NO ORGANISMS SEEN 36 Organism 1 ! NO GROWTH 37 GRAM STAIN ! FEW WHITE BLOOD CELLS ! NO ORGANISMS SEEN 38 NO GROWTH: FINAL REPORT 39 OPERATION/PROCEDURE Closure of colostomy DIAGNOSIS: PART 1. "PROXIMAL COLON, CLOSURE OF COLOSTOMY": COLOSTOMY SITE, WITH HEALING CHANGES. PART 2. "DISTAL COLON, CLOSURE OF COLOSTOMY": SEGMENT OF COLON, CONGESTED. JW 07/09/2011 1038 AM GROSS Part 1; Received in formalin labeled "PROXIMAL COLON" is a 7.3 cm. segment of colon with a diameter of 3.9 cm. One end of the colon is attached to a 3.1 x 0.4 cm. sutured skin opening that is consistent with a colostomy site. The mesocolon measures up to 1.5 cm. in thickness and is attached to the entire length of the colon. After further opening the colonic mucosa is grossly unremarkable. There is no evidence of diverticulum nor tumor. Pail Tester section is submitted in blocks 1A and 1B. Part 2; Received in formalin labeled "DISTAL COLON" is a 6.7 cm. segment of colon with a diameter of up to 2.1 cm. The mesocolon measures up to 2.5 cm. in thickness and 5.1 cm. in width and is attached to the entire length of the appendix. No orientation is provided. The opened end is inked blue and the closed end is painted black and the specimen is opened along the antimesenteric edge. Upon opening the lumen of the colon contains mucous like material and the mucosa itself is grossly unremarkable. There is no evidence of tumor nor hemorrhage. Pail Tester section is submitted as follows: 2A =open end, 2B=closed end, 2C \\E&E\\ 2D=random sections. DEBBY/ava MICROSCOPIC Part 1. Sections reveal segment of colon and attached skin, with non- specific chronic inflammation. Part 2. Sections reveal colonic tissue with congestion. There is no evidence of neoplasia. PRE OPERATIVE DIAGNOSIS S/P strangulated sigmoid colon; avendano \\E&E\\ right inguinal hernia repair REVIEW CODE CODE: I NADIA Marina MD 1038 40 Note: Persistent reduction for 3 months or more in an eGFR <60 mL/min/1.73 m2 defines CKD. Patients with eGFR values >/=60 mL/min/1.73 m2 may also have CKD if evidence of persistent proteinuria is present. The original MDRD equation for estimated GFR is not valid for patients less than 18 years of age. Additional information may be found at [email or web address]. 41 DUPLICATE 42 Note: Persistent reduction for 3 months or more in an eGFR <60 mL/min/1.73 m2 defines CKD. Patients with eGFR values >/=60 mL/min/1.73 m2 may also have CKD if evidence of persistent proteinuria is present. The original MDRD equation for estimated GFR is not valid for patients less than 18 years of age. Additional information may be found at [email or web address]. 43 Note: Persistent reduction for 3 months or more in an eGFR <60 mL/min/1.73 m2 defines CKD. Patients with eGFR values >/=60 mL/min/1.73 m2 may also have CKD if evidence of persistent proteinuria is present. The original MDRD equation for estimated GFR is not valid for patients less than 18 years of age. Additional information may be found at [email or web address]. 44 Note: Persistent reduction for 3 months or more in an eGFR <60 mL/min/1.73 m2 defines CKD. Patients with eGFR values >/=60 mL/min/1.73 m2 may also have CKD if evidence of persistent proteinuria is present. The original MDRD equation for estimated GFR is not valid for patients less than 18 years of age. Additional information may be found at [email or web address]. 45 Note: Persistent reduction for 3 months or more in an eGFR <60 mL/min/1.73 m2 defines CKD. Patients with eGFR values >/=60 mL/min/1.73 m2 may also have CKD if evidence of persistent proteinuria is present. The original MDRD equation for estimated GFR is not valid for patients less than 18 years of age. Additional information may be found at [email or web address]. 46 GRAM STAIN ! NO ORGANISMS SEEN ! BY DIRECT SMEAR 47 NO GROWTH: FINAL REPORT 48 GRAM STAIN ! NO ORGANISMS SEEN ! BY DIRECT SMEAR 49 Organism 1 ! NO GROWTH 50 OPERATION/PROCEDURE Right inguinal hernia repair with absorbable plug, laparotomy, Pete's procedure. DIAGNOSIS: "SIGMOID COLON, SEGMENTAL RESECTION": ACUTE TRANSMURAL ISCHEMIC TYPE NECROSIS CONSISTENT WITH CLINICAL STRANGULATED LARGE BOWEL. PROXIMAL AND DISTAL MARGINS OF EXCISION APPEAR VIABLE. WS/clf 1003 GROSS The specimen is received in a single container additionally labeled, " SIGMOID COLON". This contains a deeply hemorrhagic, unoriented segment of grossly recognizable large bowel. One end has been previously stapled shut and overall this colon is 6.7 cm. in length. Overall the colon measures up to 4.7 x 3.0 cm. in cross-sectional dimension. The mucosal folds are greatly edematous with a transverse area of mucosal necrosis that runs in a band-like fashion measuring 0.6 cm. in overall width, branching from a greater width of 1.0 cm. This region is located 1.7 cm. away from the stapled margin and 5.2 cm. from the unstapled margin. The mucosa on either side is black and necrotic appearing. The remaining mucosal folds have a lessor shade of brown and are alexander at the margins of excision. On the external surface, these transmural area of thinning and white necrotic color is noted. The mesenteric adipose tissue also appears to be dusky and ecchymotic. No gross masses are noted. Pail Tester sections are submitted as follows: A=margin of excision taken from unstapled margin, B=margin of excision taken from stapled margin, both transverse and longitudinal sections are submitted, C,D=extensive sampling of area of mucosal erosion, E=edematous folds closer to unstapled margin. Tissue remaining. WS/clf MICROSCOPIC These sections demonstrate ischemic-type necrosis of colon extending from the mucosa to submucosa and involving nearly all of the thickness of the muscularis propria. The underlying serosa demonstrates vascular congestion and early suppurative- type necrosis. I do not see evidence of dysplasia, nor malignancy. The proximal and distal margins of excision appear viable. PRE OPERATIVE DIAGNOSIS Strangulated right inguinal hernia, indirect with sigmoid colon. REVIEW CODE CODE: I PAN Quan MD 05/06/11 1100 Procedures Date CPT Code Description Status 11/03/2017 61790 FX Metacarpal closed single w/o manipulation Completed 12/03/2016 77220 Eye Exam Est Patient Comprehensive Completed 11/10/2016 56770 Colonoscopy With Biopsy Completed 09/30/2016 28781 EKG-Tracing And Report Completed 04/25/2016 79856 Eye Exam New Patient Comprehensive Completed 08/23/2015 42984 Echocardiogram Complete Completed 08/07/2015 08457 EKG-Tracing And Report Completed 09/22/2014 74430 Implant Of Mesh Or Prothesis For Incisional Hernia Completed Repair 09/22/2014 76317 Repair inisial incisional or ventral hernia; reducible Completed 09/22/2014 27965 Anesthesia, Repair Hernia Lumbar & Ventral Completed 08/04/2011 99615 Radiology, Ankle Complete Completed 07/08/2011 20697 Anesthesia, Lower Abdomen Surgery Not Otherwise Spec Completed 07/08/2011 73531 Closure enterostomy, resection and colorectal Completed anastomosis 07/08/2011 64701 Closure enterostomy, resection and colorectal Completed anastomosis 07/08/2011 12146 Closure enterostomy, resection and colorectal Completed anastomosis 07/02/2011 41580 EKG Interpretation And Report Only Completed 05/22/2011 91315 Radiology, Ankle Complete Completed 05/04/2011 76182 Echocardiogram Complete Completed 05/04/2011 32865 EKG Interpretation And Report Only Completed 05/03/2011 67890 Repair recurrant inguinal hernia, any age; Completed incarcerated/strangled 05/03/2011 64004 Colectomy; partial; end colostomy & closure of Completed distal segment 05/03/2011 48139 Anesthesia, Lower Abdomen Surgery Not Otherwise Spec Completed 04/02/2009 76952 EKG Interpretation And Report Only Completed Encounters Type Date Location Provider CPT E/M Dx Office Visit 09/24/2017 1:45p Surgical Office Saurabh Amaya 23416 L76.34 Zaynab [place] Office Visit 02/11/2017 8:30a Surgical Office Miguelangel Velasquez MD,FACS 18858 K43.2 K59.00 Office Visit 11/26/2016 8:45a Surgical Office Miguelangel Velasquez MD,FACS 14488 K43.2 K59.00 Office Visit 10/22/2016 10:00a Surgical Office Miguelangel Velasquez MD,FACS 04257 K43.2 K59.00 Office Visit 09/30/2016 9:20a [place] [address] Z91.81 I10 Office Visit 08/28/2015 10:00a Cardiology Office ALMAZ Stevenson 16846 R55 R94.31 R74.8 I10 Office Visit 08/07/2015 11:00a [place] [address] R55 R94.31 R74.8 Office Visit 07/20/2015 9:35a [facility] Anais Cespedes M.D. 75632 R55 Medical Center F20.9 Office Visit 05/24/2015 10:21a [facility] Baljit Russ M.D. 09211 G40.409 Medical Center Office Visit 02/22/2015 2:15p Surgical Office Saurabh Amaya 48057 K43.5 Zaynab [place] Office Visit 09/26/2014 1:17p [facility] Rom Samano M.D. 54820 276.1 [facility] 780.39 Office Visit 08/23/2014 11:00a Surgical Office Saurabh [place], 14785 553.21 MHayley 553.29 Office Visit 08/04/2011 10:15a Orthopaedic Office Dale Dai M.D., 45479 824.2 FACS V54.19 V67.4 Office Visit 06/20/2011 11:15a Orthopaedic Office Dale Dai, 49549 V54.19 M.Ayden, FACS 824.2 V54.19 Plan of Care Future Appointment(s):11/17/2017 1:00 pm - Francis Caceres M.D. at [id number]/03/2017 - María Elena Montero, [id number] Disp fx of base of fourth metacarpal bone, left hand, initS63.065A Disloc of metacarpal (bone), proximal end of left hand, initAllComments:Patient is scheduled for a closed reduction, possible percutaneous pinning of left 5th metacarpal dislocation, 4th metacarpal displaced fracture. He obtained medical clearance from his primary care provider this morning. He is heading directly over to the hospital from the office. The remainder of the plan will be per the admission orders.
[2017-11-24] MEDS ORDERED: diPHENhydraMINE IV* 50 MG/ML 1 ml VIAL (BENADRYL) IV PRN (16:42)
[2017-11-24] MEDS ORDERED: Docusate CAP* 100 MG PO PRN (16:42)
[2017-11-24] MEDS ORDERED: Zosyn per Pharmacy* NOTE FOLLOW UP SCH (17:00)
[2017-11-24] MEDS ORDERED: Vancomycin per Pharmacy* NOTE FOLLOW UP SCH (17:00)
[2017-11-24] MEDS ORDERED: ZOSYN 3.375 GM x ONE DOSE over 30 miuntes IVPB ×2 (18:00)
[2017-11-24] MEDS: Acetaminophen TAB* 325 MG PO PRN (18:24)
[2017-11-24 18:28] LABS: EGFR Non-African American 78.7 (>60)
[2017-11-24] MEDS ORDERED: Vancomycin 1500 MG IV - x ONCE IVPB ONE ×4 (19:00→20:00)
[2017-11-24] MEDS: oxyCODONE/Acetamin 5/325 MG* TAB PO PRN (20:04)
[2017-11-24] MEDS ORDERED: Heparin VIAL(*) 5000 UNITS/ML VIAL (FIVE THOUSAND) SUBCUT SCH (21:00)
[2017-11-24] MEDS: ZOSYN 3.375 GM Q8H per EXTENDED INFUSION IVPB SCH ×2 (22:04)
[2017-11-24] MEDS: QUEtiapine TAB* 300 MG PO SCH (22:52)
[2017-11-24] MEDS: Omeprazole CAP* 20 MG PO SCH (22:52)
[2017-11-24] MEDS: Benztropine TAB* 1 MG PO SCH (22:52)
[2017-11-24] MEDS: Perphenazine TAB* 2 MG PO SCH (22:52)
[2017-11-24] MEDS: levETIRAcetam TAB* 500 MG PO SCH (22:52)
[2017-11-24] MEDS: Polyethylene Glycol 3350* 17 GM PACKET PO SCH (22:58)
[2017-11-25] MEDS: NS 0.9% 1000 ML* 1,000 ML IV SCH ×2 (00:06→07:38)
--- NOTE | 2017-11-25 01:10 | HP ---
ADMISSION HISTORY AND PHYSICAL: DATE OF ADMISSION: 11/24/17 ATTENDING PROVIDER: Karan Fowler MD * (DICTATED BY ALVIN BOONE) CHIEF COMPLAINT: Left hand infection. HISTORY OF PRESENT ILLNESS: The patient was admitted to [facility] today, 11/24/17, by orthopedics service after being seen in our office today by Dr. Karan Fowler. He was sent in to the hospital for left hand infection requiring IV antibiotics and surgical procedure intended for tomorrow. The patient has sustained a postoperative infection of the left hand and wrist. Original procedure on November 03, [address] José Miguel Fragoso. H present to [facility] with drainage from a pin site and one pin that had fallen out. The remaining pin was removed on 11/21/17 and he was treated with IV antibiotics. He states that his left hand is not painful at this time. He is right-handed. He lives at [facility] in [place], [place]. Patient states he has tolerated anesthesia well in the past. He does not have known history of blood clots. He denies any history of heart disease or pulmonary disease. PAST MEDICAL HISTORY: Does include schizophrenia; bipolar disorder; epilepsy; hypertension; hyperlipidemia; type 2 diabetes, as listed in chart, though the patient denies this in his history; GERD; hernia; BPH; hydronephrosis; constipation; headaches. PAST SURGICAL HISTORY: Bowel resection, strangulated hernia, colectomy with reversal. ALLERGIES: No known drug allergies. FAMILY HISTORY: Diabetes, hypertension, hyperlipidemia. SOCIAL HISTORY: Nonsmoker. Does not use alcohol. The patient lives at [facility], phone number [phone]. REVIEW OF SYSTEMS: General: Denies fevers or chills. HEENT: Denies headache. Cardiac: Denies chest pain. Respiratory: Denies shortness of breath. GI: Denies any nausea, vomiting, stomach upset. He does have a history of colectomy with reversal which he did not report until scars questioned. : No dysuria Skin: Left hand has been erythematous. Musculoskeletal: Left hand with fracture, pin fixation, infection and then removal of hardware. Endocrine: Chart states history of diabetes. The patient denies such. PHYSICAL EXAMINATION GENERAL: Well-appearing, in no acute distress. HEENT: Normocephalic, atraumatic. Extraocular movements are intact. RESPIRATORY: Lungs Clear to auscultation bilaterally. CARDIAC: S1, S2. No irregular beats. ABDOMEN: Midline infraumbilical surgical incision is well healed as well as scar from previous colostomy. Bowel sounds normoactive. Nontender. No masses. MUSCULOSKELETAL: dressing on left upper extremity was removed. Radial pulse is 2+. Capillary refill less than 2 seconds. Surgical wound was not weeping, but did appear wet. This area was cultured. Mild surrounding erythema. No edema. The patient is able to wiggle all fingers well. Sensation intact throughout all digits. NEURO: Sensation intact to light touch throughout the left hand and digits Psych: Patient communicates well with appropriate conversation and answers to questions. He is a poor historian in that he may not report a medical condition unless reminded. ASSESSMENT: Left hand infection. PLAN: The patient will be n.p.o. at midnight. He will get 1 dose of subcu heparin tonight and then it will be held for tomorrow. He will be started on vanco and Zosyn. Wound culture taken, sent for Gram stain, aerobic and anaerobic cultures. Labs for tomorrow morning include CBC, CMP, and INR. The patient will be on a carbohydrate consistent diet until he becomes n.p.o. due to chart listing history of diabetes. He will not have fingersticks as his last lab value was 89, nonfasting and the patient denies a history of diabetes, he is not on any medication to indicate treatment of diabetes. Hospitalist consult was obtained. Home medications were reviewed and resumed. Medications are currently being put in to the chart as a med rec sent from his custodial by our nursing staff. Patient will be taken to the OR by Dr Fowler for left hand I&D, Possible open reduction and pinning of CMC joint. ALVIN BOONE [id number]/[facility] #: [id number] MTDAsya
--- NOTE | 2017-11-25 01:26 | CONS ---
CC: ALVIN Kasper; Dr. Fowler * CONSULTATION REPORT: DATE OF CONSULT: 11/24/17 REQUESTED BY: Dr. Fowler. PRIMARY CARE PROVIDER: ALVIN Nuñez REASON FOR CONSULT: Medical management of the patient with left hand infection. HISTORY OF PRESENT ILLNESS: Clovis Bryant is a 62-year-old male with history of schizophrenia, bipolar disorder, who presents to the hospital after seeing Dr. Fowler as an outpatient for a visit for left hand infection. Sometime at the end of October of 2017, the patient stated that he slipped, fell and tried to catch his fall guarding with both outstretched hands. He suffered from left 4th and 5th metacarpal fracture and on 11/03/17, Dr. Richmond Valdez performed a closed reduction and percutaneous pinning of the area. Due to the patient's chronic psychiatric issues, he is a very poor historian. From medical records, we are unsure if the patient followed up with his surgeon as an outpatient. Nevertheless, on 11/20/17, the patient came into [facility] complaining of left hand infection. Apparently, 1 pin was already "out " and the other pin was sticking out of his hand and there was purulent drainage in the area. The patient was admitted to [facility] and treated with broad-spectrum antibiotics. I believe he was there only a day or two and discharged on ciprofloxacin 500 mg b.i.d. and Flagyl 500 mg 3 times a day, so he can make an appointment with Dr. Fowler, which was already set up prior to his admission to [place]. The patient was seen by Dr. Fowler today who sent the patient for direct admission and planned incision and drainage of the infected wound in the left hand. Medicine was asked to consult in regards of management of the patient's chronic conditions. PAST MEDICAL HISTORY: Please note that most of that is obtained from past medical records since the patient is a very poor historian and that includes: 1. Schizophrenia. 2. Bipolar disorder. 3. Hypertension. 4. History of sinus tachycardia with PACs in the past. 5. History of chronic kidney disease. 6. History of hernia repair with large bowel resection and colostomy and reversal of colostomy in the past. 7. Dyslipidemia. 8. Gastroesophageal reflux disease. 9. History of asthma. 10. History of fracture of the left ankle. 11. History of left hydronephrosis in the past that resolved. 12. History of inguinal hernia repair bilaterally. MEDICATIONS: Include: 1. Ibuprofen 1200 mg every 6 hours p.r.n. 2. Astepro 0.1% one spray both nostrils b.i.d. 3. Bismuth 30 mL every 4 hours p.r.n. 4. Saline nasal drops 1 spray both nostrils up to 4 times a day p.r.n. 5. Seroquel 300 mg at bedtime. 6. Trilafon 16 mg b.i.d. 7. Prilosec 20 mg daily. 8. Oxycodone with acetaminophen 5/325 mg 1 tablet every 4 hours p.r.n. 9. MiraLAX 17 g b.i.d. 10. Ketorolac 10 mg every 8 hours p.r.n. 11. Keppra 500 mg b.i.d. 12. Fluticasone nasal spray 1 spray both nostrils b.i.d. 13. Colace 200 mg daily. 14. Cogentin 0.5 mg b.i.d. 15. Aspirin 81 mg daily. 16. Claritin 10 mg at bedtime. 17. Acetaminophen on a p.r.n. basis. 18. Maalox 30 mL every 4 hours p.r.n. 19. Artificial Tears on a p.r.n. basis. ALLERGIES: No known drug allergies. FAMILY HISTORY: Mother at 98 of "old age." Father when he was " about 100 or so" from old age as per the patient. SOCIAL HISTORY: The patient denies any tobacco, alcohol or drug use. He lives in an apartment building with a roommate who smokes, but he himself does not smoke. As his surrogate, he named Adelina Hendricks from [place], [place]. REVIEW OF SYSTEMS: Please see history of present illness. The patient stated that ever since his fall 3 or 4 weeks ago, he has been using a cane. He denies marked pain in his left hand after it was treated in [facility]. He stated that the second pin was removed by a physician at [facility]. He denies any fevers or chills. He has been having good appetite. He has no problems with chest pain or shortness of breath and he denies any problems with his heart. Although he has history of asthma in his past medical records, he denies any problems with breathing or wheezing. All the remaining 14 systems were reviewed with the patient and it was somewhat limited due to the patient's baseline mental illness, but were otherwise negative. PHYSICAL EXAM: Blood pressure of 158/73, heart rate of 95 and regular, respiratory rate 20, oxygen saturation 97% on room air and temperature of 98.1. General: The patient is a very pleasant 62-year-old male, who is in no acute distress. The patient is alert and oriented x3, although from the date, he struggles to recall that it is the year 2017 and month November. He knows it is Thursday. The patient is otherwise in no acute distress. HEENT: Head is atraumatic, normocephalic. Eyes: Pupils are equal and reactive to light and accommodation. Oropharynx clear. Mucosa moist. Neck: Supple. No JVD. No bruits bilaterally. Cardiovascular: Regular rate and rhythm. No murmur. Respiratory: Clear to auscultation bilaterally. Abdomen: Soft, nontender. Bowel sounds are present in all 4 quadrants. There was palpable abnormality subcutaneous in the left lower quadrant of his abdomen that the patient stated he has had ever since his colostomy reversal. The area is a subcutaneous mass- like of approximately 4 cm in diameter. The area is nontender to palpation. Extremities: There is no edema. Pulses are +2 bilaterally. There is no clubbing or cyanosis. Please note that the left hand was just wrapped by the orthopedic surgical service and was splinted and I am not going to undo the wrap by the patient's request at this point. From the skin that is exposed from the wrap, there was no evidence of infection. I understand from the description from the orthopedic service that there is an area of a puncture wound on the dorsum of the left hand and may be a small area of cellulitis. Neuro Evaluation: Speech clear. Cranial nerves II through XII are grossly intact. Motor strength is 5/5 bilaterally. LABORATORY DATA: The patient's creatinine was noted to be 0.97 and all the other laboratory data is pending at the time of dictation. ASSESSMENT AND PLAN: 1. In regards to the patient's left hand infection, at this point from what I understand the patient's hardware is already removed. The patient was placed on broad-spectrum antibiotics with vancomycin and Zosyn for this postsurgical site infection. Dr. Fowler plans to take the patient for I and D of the wound tomorrow under nerve block. At this point, I do not have the patient's EKG yet , but the patient has no known heart history that he is aware of. He had been asymptomatic from exercise standpoint and has good exercise tolerance from this what he stated. At this point, I see no contraindications to surgery and he should be an acceptable candidate for the anticipated procedure. 2. In regards to the patient's psychiatric medications, at this point it appears that his schizophrenia is well controlled. He denies any hallucinations and he is pleasant and cooperative. I recommend continuation of his antipsychotic medications. 3. The patient has history of asthma and he is on Flonase nasal spray, which is going to be continued. 4. For DVT prophylaxis, the patient is at moderate risk and heparin was already started by the orthopedic service. Thank you very much for allowing our service to see your patient in consultation. We will follow postoperatively. ADDENDUM: I just received medical records from Dr. Crane's office, who saw the patient at the end of April 2017 for followup seizures. Apparently, he has a history of possible seizures that had been on Keppra at the same dose as currently. At this point, we will continue keeping the patient's Keppra at the same dose. The patient denies seizures currently and in the past several months. Once again, he is a very poor historian. [id number]/[facility] #: [id number] Bessy- [id number]/[facility] #: [id number] DEVANTE
--- NOTE | 2017-11-25 01:26 | CONS ---
CONSULTATION REPORT: ADDENDUM: I just received medical records from Dr. Crane's office, who saw the patient at the end of April 2017 for followup seizures. Apparently, he has a history of possible seizures that had been on Keppra at the same dose as currently. At this point, we will continue keeping the patient's Keppra at the same dose. The patient denies seizures currently and in the past several months. Once again, he is a very poor historian. [id number]/[facility] #: [id number] [facility]
[2017-11-25 06:04] LABS: ABS Basophils 0.1 10^3/ul (0-0.2); ABS Eosinophils 0.2 10^3/ul (0-0.6); ABS Monocytes 0.6 10^3/ul (0-0.8); ABS Neutrophils 5.3 10^3/ul (1.5-7.7); ABS Nucleated RBC 0 10^3/ul; Eosinophil % 3.4 % (0-6); Hematocrit 37 % (42-52); Hemoglobin 12.6 g/dl (14.0-18.0); Lymphocyte % 13.3 % (25-47); Mean Corpuscular HGB Conc 34 g/dl (31-36); Mean Corpuscular Hemoglobin 29 pg (27-31); Mean Corpuscular Volume 84 fL (80-94); Mean Platelet Volume 6.3 um3 (7.4-10.4); Nucleated Red Blood Cells % 0.1; Platelet Count 318 10^3/ul (150-450); Red Blood Count 4.38 10^6/ul (4.00-5.40); Red Cell Distribution Width 14 % (10.5-15); White Blood Count 7.2 10^3/ul (3.5-10.8)
[2017-11-25 06:10] LABS: INR 1.07 (0.77-1.02)
[2017-11-25 06:25] LABS: EGFR Non-African American 84.7 (>60)
[2017-11-25] MEDS: ZOSYN 3.375 GM Q8H per EXTENDED INFUSION IVPB SCH ×4 (06:35→15:41)
[2017-11-25] MEDS: oxyCODONE/Acetamin 5/325 MG* TAB PO PRN ×3 (07:29→22:26)
[2017-11-25] MEDS: levETIRAcetam TAB* 500 MG PO SCH ×2 (07:29→19:44)
[2017-11-25] MEDS: Cetirizine* 10 MG TAB PO SCH (07:29)
[2017-11-25] MEDS: Perphenazine TAB* 2 MG PO SCH ×2 (07:29→19:44)
[2017-11-25] MEDS: Benztropine TAB* 1 MG PO SCH ×2 (07:30→19:44)
[2017-11-25] MEDS: Polyethylene Glycol 3350* 17 GM PACKET PO SCH ×2 (07:44→19:30)
[2017-11-25] MEDS: VANCOMYCIN 1500 MG IVPB SCH ×4 (08:13→19:45)
[2017-11-25] MEDS: Morphine VIAL* 4 MG/ML VIAL (1 ml vial) IV PRN ×2 (11:13→18:19)
--- NOTE | 2017-11-25 13:54 | PN ---
Subjective Date of Service: 11/25/17 Interval History: Pt was examined after he walked 500 feet with good exercise tolerance, no SOB. He is planned t go to OR, no new complaints Objective Active Medications: Acetaminophen (Tylenol Tab*) 650 mg PO Q4H PRN PRN Reason: FEVER/PAIN Last Admin: 11/24/17 18:24 Dose: 650 mg Benztropine Mesylate (Cogentin Tab*) 0.5 mg PO BID [facility] Last Admin: 11/25/17 07:30 Dose: 0.5 mg Cetirizine HCl (Zyrtec*) 10 mg PO DAILY [facility] Last Admin: 11/25/17 07:29 Dose: 10 mg Diphenhydramine HCl (Benadryl Iv*) 25 mg IV Q6H PRN PRN Reason: itching Docusate Sodium (Colace Cap*) 100 mg PO BID PRN PRN Reason: CONSTIPATION Fluticasone Propionate (Flonase Nasal [place] 50mcg*) 1 spray BOTH NARES BID [facility] Sodium Chloride (Ns 0.9% 1000 Ml*) 1,000 mls @ 100 mls/hr IV PER RATE [facility] Last Admin: 11/25/17 07:38 Dose: 100 mls/hr Piperacillin Sod/Tazobactam (Sod 3.375 gm/ Sodium Chloride) 100 mls @ 25 mls/ hr IVPB Q8H [facility] Last Admin: 11/25/17 06:35 Dose: 25 mls/hr Vancomycin HCl 1,500 mg/ (Sodium Chloride) 250 mls @ 166.667 mls/hr IVPB Q12H [facility] Last Admin: 11/25/17 08:13 Dose: 166.667 mls/hr Levetiracetam (Keppra Tab*) 500 mg PO BID [facility] Last Admin: 11/25/17 07:29 Dose: 500 mg Magnesium Hydroxide (Milk Of Magnesia Liq*) 30 ml PO Q6H PRN PRN Reason: constipation Morphine Sulfate (Morphine Vial*) 2 mg IV Q2H PRN PRN Reason: PAIN - BREAKTHROUGH Last Admin: 11/25/17 11:13 Dose: 2 mg Omeprazole (Prilosec Cap*) 20 mg PO BEDTIME [facility] Last Admin: 11/24/17 22:52 Dose: 20 mg Oxycodone/Acetaminophen (Percocet 5/325 Tab*) 2 tab PO Q4H PRN PRN Reason: PAIN - MODERATE Oxycodone/Acetaminophen (Percocet 5/325 Tab*) 1 tab PO Q4H PRN PRN Reason: PAIN - MILD Last Admin: 11/25/17 07:29 Dose: 1 tab Perphenazine (Trilafon Tab*) 16 mg PO BID [facility] Last Admin: 11/25/17 07:29 Dose: 16 mg Pharmacy Consult (Vancomycin Per Pharmacy*) 1 note FOLLOW UP .VANC PER PHARMACY [facility] Pharmacy Consult (Zosyn Per Pharmacy*) 1 note FOLLOW UP .ZOSYN PER PHARMACY [facility] Pharmacy Profile Note (Vancomycin Trough Check) 1 note FOLLOW UP .ENTER TIME ONE Stop: 11/26/17 19:31 Polyethylene Glycol/Electrolytes (Miralax*) 17 gm PO 0800,2100 [facility] Last Admin: 11/25/17 07:44 Dose: Not Given Quetiapine Fumarate (Seroquel Tab*) 300 mg PO BEDTIME [facility] Last Admin: 11/24/17 22:52 Dose: 300 mg Vital Signs - 8 hr 11/25/17 11/25/17 11/25/17 07:29 07:38 11:13 Temperature 98.4 F Pulse Rate 84 Respiratory 20 16 16 Rate Blood Pressure 149/85 (mmHg) O2 Sat by Pulse 98 Oximetry Oxygen Devices in Use Now: None Appearance: 62 yo M in NAD, AAOx2, poor historian Eyes: No Scleral Icterus, PERRLA Ears/Nose/Mouth/Throat: NL Teeth, Lips, Gums, Mucous Membranes Moist Neck: NL Appearance and Movements; NL JVP, Trachea Midline Respiratory: Symmetrical Chest Expansion and Respiratory Effort, Clear to Auscultation Cardiovascular: NL Sounds; No Murmurs; No JVD, RRR Abdominal: NL Sounds; No Tenderness; No Distention Lymphatic: No Cervical Adenopathy Extremities: No Edema, No Clubbing, Cyanosis Skin: No Rash or Ulcers, No Nodules or Sclerosis, - - left hand in spilnt, wound not examined Neurological: NL Muscle Strength and Tone Result Diagrams: 11/25/17 05:41 11/25/17 05:41 Microbiology and Other Data: Microbiology 11/24/17 16:45 Gram Stain - Final Hand Left Wound Culture - Preliminary No Growth Day 1 Assess/Plan/Problems-Billing Assessment: 62 yo M with h/o schizophrenia , seizures, HTN (on no BP meds at home) s/p left hand surgery and pinning with post op infection - Patient Problems (1) Infection of left hand Comment: plan to go to OR for washout. H/o metacarpal fxs cont Vanc/Zosyn as per surgery EKG shows no significant changes and pt is an appropiate candidate for the anticipated surgery (2) Schizophrenia Comment: cont outpatient meds stable (3) Seizure disorder Comment: no recent seizures reported, cont Keppra (4) Asthma Comment: not in exacerbation, cont home meds (5) DVT prophylaxis Comment: heparin help preop Status and Disposition: thank you for consult, will follow
[2017-11-25] MEDS ORDERED: Bupivacaine 0.5% SDV PF* 30ML VIAL ONE (15:28)
[2017-11-25] MEDS ORDERED: Sodium Citrate/Citric Acid* 15 ML UDC ONE (15:56)
[2017-11-25] MEDS ORDERED: Propofol* 10 MG/ML 20 ML BTL IV PUSH ONE (15:59)
[2017-11-25] MEDS ORDERED: Lidocaine 2% PF * 5 ML VIAL ONE (16:01)
[2017-11-25] MEDS ORDERED: fentaNYL* 50 MCG/ML 2 ML VIAL (100 MCG VIAL) ONE ×3 (16:01→17:55)
[2017-11-25] MEDS ORDERED: Naloxone* 0.4 MG/ML 1 ML VIAL IV PRN (17:47)
[2017-11-25] MEDS ORDERED: Ondansetron INJ* 2 MG/ML VIAL IV PRN (17:47)
[2017-11-25] MEDS ORDERED: Morphine VIAL* 10 MG/ML 1 ML VIAL ONE (18:18)
[2017-11-25] MEDS ORDERED: oxyCODONE/Acetamin 5/325 MG* TAB ONE (18:34)
[2017-11-25] MEDS: Omeprazole CAP* 20 MG PO SCH (19:44)
[2017-11-25] MEDS: QUEtiapine TAB* 300 MG PO SCH (19:44)
[2017-11-25] MEDS: Acetaminophen TAB* 325 MG PO PRN (19:45)
[2017-11-25] MEDS: Fluticasone NASAL SPRAY 50MCG* 16 gm SPRAY BTL BOTH NARES SCH (19:45)
[2017-11-25] MEDS ORDERED: fentaNYL* 50 MCG/ML 2 ML VIAL (100 MCG VIAL) IV PRN (20:08)
[2017-11-25] MEDS ORDERED: hydrALAZINE IV* 20 MG/ML VIAL IV SLOW PU ONE (21:00)
[2017-11-26] MEDS: oxyCODONE/Acetamin 5/325 MG* TAB PO PRN ×3 (02:35→20:30)
[2017-11-26] MEDS: NS 0.9% 1000 ML* 1,000 ML IV SCH (03:52)
[2017-11-26] MEDS: Acetaminophen TAB* 325 MG PO PRN ×3 (05:01→17:27)
[2017-11-26 05:53] LABS: ABS Basophils 0 10^3/ul (0-0.2); ABS Eosinophils 0.1 10^3/ul (0-0.6); ABS Nucleated RBC 0 10^3/ul; Eosinophil % 0.3 % (0-6); Hematocrit 37 % (42-52); Hemoglobin 12.5 g/dl (14.0-18.0); Lymphocyte % 5.3 % (25-47); Mean Corpuscular HGB Conc 34 g/dl (31-36); Mean Corpuscular Hemoglobin 29 pg (27-31); Mean Corpuscular Volume 84 fL (80-94); Mean Platelet Volume 6.4 um3 (7.4-10.4); Nucleated Red Blood Cells % 0.2; Platelet Count 303 10^3/ul (150-450); Red Blood Count 4.38 10^6/ul (4.00-5.40); Red Cell Distribution Width 15 % (10.5-15)
[2017-11-26 06:18] LABS: EGFR Non-African American 77.8 (>60)
[2017-11-26] MEDS ORDERED: Fluticasone NASAL SPRAY 50MCG* 16 gm SPRAY BTL BOTH NARES SCH (09:00)
[2017-11-26] MEDS: Polyethylene Glycol 3350* 17 GM PACKET PO SCH ×2 (09:06→20:29)
[2017-11-26] MEDS: Benztropine TAB* 1 MG PO SCH ×2 (09:06→20:30)
[2017-11-26] MEDS: VANCOMYCIN 1500 MG IVPB SCH ×4 (09:07→20:28)
[2017-11-26] MEDS: Cetirizine* 10 MG TAB PO SCH (09:07)
[2017-11-26] MEDS: Perphenazine TAB* 2 MG PO SCH ×2 (09:07→20:29)
[2017-11-26] MEDS: Fluticasone NASAL SPRAY 50MCG* 16 gm SPRAY BTL BOTH NARES SCH ×2 (09:09→20:29)
--- NOTE | 2017-11-26 09:38 | PN ---
Progress Note - Progress Note Date of Service: 11/26/17 SOAP: Subjective: []Patient seen at bedside. He is comfortable today, stating his left hand pain is rated as 3/10. He is able to wiggle his fingers and reports intact sensation of his digits, though he feels sensation is somewhat decreased from baseline throughout all digits. Denies feeling of fever, chills, chest pain or shortness of breath. Objective: [] Vital Signs Temp 98.3 F 11/26/17 07:29 Pulse 101 11/26/17 07:29 Resp 18 11/26/17 07:45 BP 122/56 11/26/17 07:29 Pulse Ox 94 11/26/17 08:41 Intake & Output 11/25/17 11/26/17 11/26/17 18:59 06:59 18:59 Intake Total 1498 2468 350 Output Total 20 250 Balance 1478 2218 350 Intake: IV Fluids 1395 758 0.9 500 ABX - VANCOMYCIN 265 NS 895 493 IVPB 103 ABX - ZOSYN 103 Oral 0 1710 350 Output: Urine 0 Davalos 250 Estimated Blood Loss 20 Other: Estimated Void Medium Medium # Voids 1 4 Laboratory Last Values WBC 19.0 10^3/ul (3.5-10.8) H 11/26/17 05:12 RBC 4.38 10^6/ul (4.00-5.40) 11/26/17 05:12 Hgb 12.5 g/dl (14.0-18.0) L 11/26/17 05:12 Hct 37 % (42-52) L 11/26/17 05:12 MCV 84 fL (80-94) 11/26/17 05:12 MCH 29 pg (27-31) 11/26/17 05:12 MCHC 34 g/dl (31-36) 11/26/17 05:12 RDW 15 % (10.5-15) 11/26/17 05:12 Plt Count 303 10^3/ul (150-450) 11/26/17 05:12 MPV 6.4 um3 (7.4-10.4) L 11/26/17 05:12 Neut % (Auto) 89.1 % (38-83) H 11/26/17 05:12 Lymph % (Auto) 5.3 % (25-47) L 11/26/17 05:12 Mercer % (Auto) 5.1 % (0-7) 11/26/17 05:12 Eos % (Auto) 0.3 % (0-6) 11/26/17 05:12 Baso % (Auto) 0.2 % (0-2) 11/26/17 05:12 Absolute Neuts (auto) 17.0 10^3/ul (1.5-7.7) H 11/26/17 05:12 Absolute Lymphs (auto) 1.0 10^3/ul (1.0-4.8) 11/26/17 05:12 Absolute Monos (auto) 1.0 10^3/ul (0-0.8) H 11/26/17 05:12 Absolute Eos (auto) 0.1 10^3/ul (0-0.6) 11/26/17 05:12 Absolute Basos (auto) 0 10^3/ul (0-0.2) 11/26/17 05:12 Absolute Nucleated RBC 0 10^3/ul 11/26/17 05:12 Nucleated RBC % 0.2 11/26/17 05:12 INR (Anticoag Therapy) 1.07 (0.77-1.02) H 11/25/17 05:40 Sodium 135 mmol/L (135-145) 11/26/17 05:12 Potassium 4.4 mmol/L (3.5-5.0) 11/26/17 05:12 Chloride 104 mmol/L (101-111) 11/26/17 05:12 Carbon Dioxide 24 mmol/L (22-32) 11/26/17 05:12 Anion Gap 7 mmol/L (2-11) 11/26/17 05:12 BUN 11 mg/dL (6-24) 11/26/17 05:12 Creatinine 0.98 mg/dL (0.67-1.17) 11/26/17 05:12 Est GFR ( Amer) 94.1 (>60) 11/26/17 05:12 Est GFR (Non-Af Amer) 77.8 (>60) 11/26/17 05:12 BUN/Creatinine Ratio 11.2 (8-20) 11/26/17 05:12 Glucose 86 mg/dL (70-100) 11/26/17 05:12 Calcium 8.7 mg/dL (8.6-10.3) 11/26/17 05:12 Total Bilirubin 0.30 mg/dL (0.2-1.0) 11/26/17 05:12 AST 63 U/L (13-39) H 11/26/17 05:12 ALT 80 U/L (7-52) H 11/26/17 05:12 Alkaline Phosphatase 73 U/L (34-104) 11/26/17 05:12 Total Protein 6.2 g/dL (6.4-8.9) L 11/26/17 05:12 Albumin 3.3 g/dL (3.2-5.2) 11/26/17 05:12 Globulin 2.9 g/dL (2-4) 11/26/17 05:12 Albumin/Globulin Ratio 1.1 (1-3) 11/26/17 05:12 General: Well appearing, NAD. Patient cooperative with appropriate conversation. LUE: Splint CDI. Exposed hand/ digits with mild edema, no erythema. Able to flex and extend all 5 digits, produce thumbs up. Sensation intact throughout all 5 digits to light touch. Capillary refill less than two seconds distally. Proximal to splint forearm is nontender, is compressible and nonerythematous. Assessment: []Left hand infection Plan: []ELBERT NIEVES PT/OT Vancomycin IV with + MRSA cultures from [facility]. No growth on cultures from [facility] [place] so far Will plan to keep patient in house until thursday when Dr Fowler will bring him back to the OR for prospective repeat I&D as needed and pinning
[2017-11-26] MEDS: levETIRAcetam TAB* 500 MG PO SCH ×2 (10:33→20:30)
[2017-11-26] MEDS ORDERED: NS 0.9% 1000 ML* 1,000 ML IV SCH (12:21)
[2017-11-26] MEDS: Heparin VIAL(*) 5000 UNITS/ML VIAL (FIVE THOUSAND) SUBCUT SCH ×2 (12:25→20:29)
--- NOTE | 2017-11-26 12:29 | PN ---
Subjective Date of Service: 11/26/17 Interval History: Almost no pain. Appetite good. No new c/o. Objective Active Medications: Acetaminophen (Tylenol Tab*) 650 mg PO Q4H PRN PRN Reason: FEVER/PAIN Last Admin: 11/26/17 05:01 Dose: 650 mg Benztropine Mesylate (Cogentin Tab*) 0.5 mg PO BID [facility] Last Admin: 11/26/17 09:06 Dose: 0.5 mg Cetirizine HCl (Zyrtec*) 10 mg PO DAILY [facility] Last Admin: 11/26/17 09:07 Dose: 10 mg Diphenhydramine HCl (Benadryl Iv*) 25 mg IV Q6H PRN PRN Reason: itching Last Admin: 11/25/17 23:34 Dose: 25 mg Docusate Sodium (Colace Cap*) 100 mg PO BID PRN PRN Reason: CONSTIPATION Fluticasone Propionate (Flonase Nasal [place] 50mcg*) 1 spray BOTH NARES BID [facility] Last Admin: 11/26/17 09:09 Dose: 1 spray Heparin Sodium (Porcine) (Heparin Vial(*)) 5,000 units SUBCUT Q12HR [facility] Vancomycin HCl 1,500 mg/ (Sodium Chloride) 250 mls @ 166.667 mls/hr IVPB Q12H [facility] Last Admin: 11/26/17 09:07 Dose: 166.667 mls/hr Levetiracetam (Keppra Tab*) 500 mg PO BID [facility] Last Admin: 11/26/17 10:33 Dose: 500 mg Magnesium Hydroxide (Milk Of Magnesia Liq*) 30 ml PO Q6H PRN PRN Reason: constipation Morphine Sulfate (Morphine Vial*) 2 mg IV Q2H PRN PRN Reason: PAIN - BREAKTHROUGH Last Admin: 11/25/17 18:19 Dose: 2 mg Naloxone HCl (Narcan*) 0.08 mg IV Q2M PRN PRN Reason: severe induced resp depression Stop: 11/26/17 17:46 Omeprazole (Prilosec Cap*) 20 mg PO BEDTIME [facility] Last Admin: 11/25/17 19:44 Dose: 20 mg Oxycodone/Acetaminophen (Percocet 5/325 Tab*) 2 tab PO Q4H PRN PRN Reason: PAIN - MODERATE Last Admin: 11/26/17 07:36 Dose: 2 tab Oxycodone/Acetaminophen (Percocet 5/325 Tab*) 1 tab PO Q4H PRN PRN Reason: PAIN - MILD Last Admin: 11/25/17 07:29 Dose: 1 tab Perphenazine (Trilafon Tab*) 16 mg PO BID [facility] Last Admin: 11/26/17 09:07 Dose: 16 mg Pharmacy Consult (Vancomycin Per Pharmacy*) 1 note FOLLOW UP .VANC PER PHARMACY [facility] Pharmacy Profile Note (Vancomycin Trough Check) 1 note FOLLOW UP .ENTER TIME ONE Stop: 11/26/17 19:31 Polyethylene Glycol/Electrolytes (Miralax*) 17 gm PO 0800,2100 [facility] Last Admin: 11/26/17 09:06 Dose: 17 gm Quetiapine Fumarate (Seroquel Tab*) 300 mg PO BEDTIME [facility] Last Admin: 11/25/17 19:44 Dose: 300 mg Vital Signs - 8 hr 11/26/17 11/26/17 11/26/17 04:30 07:29 07:36 Temperature 98.3 F Pulse Rate 101 Respiratory 16 16 18 Rate Blood Pressure 122/56 (mmHg) O2 Sat by Pulse 94 Oximetry 11/26/17 11/26/17 11/26/17 07:45 08:41 11:18 Temperature 98.6 F Pulse Rate 87 Respiratory 18 16 Rate Blood Pressure 132/64 (mmHg) O2 Sat by Pulse 94 94 96 Oximetry Oxygen Devices in Use Now: None Appearance: Alert, sitting up in bed. In good spirits. Looks comfortable. Eyes: No Scleral Icterus Neck: NL Appearance and Movements; NL JVP, No Thyroid Enlargement, Masses Respiratory: Symmetrical Chest Expansion and Respiratory Effort, Clear to Auscultation, Clear to Percussion Cardiovascular: NL Sounds; No Murmurs; No JVD, RRR, No Edema Extremities: No Edema, No Clubbing, Cyanosis, - - L lower arm/hand bandaged with elastic wrap. Skin: No Rash or Ulcers, No Nodules or Sclerosis, - Neurological: Alert and Oriented x 3, NL Sensation Result Diagrams: 11/26/17 05:12 11/26/17 05:12 Microbiology and Other Data: Microbiology 11/24/17 16:45 Gram Stain - Final Hand Left Wound Culture - Preliminary No Growth Day 1 Assess/Plan/Problems-Billing Assessment: 62 yo M with h/o schizophrenia , seizures, HTN (on no BP meds at home) s/p left hand surgery and pinning with post op infection - Patient Problems (1) Infection of left hand Current Visit: Yes Status: Acute Code(s): L08.9 - LOCAL INFECTION OF THE SKIN AND SUBCUTANEOUS TISSUE, UNSP SNOMED Code(s): 642663687 Comment: plan to go to OR for washout. H/o metacarpal fxs cont Vanc/Zosyn as per surgery, Dr. Koch to consult. EKG shows no significant changes and pt is an appropiate candidate for the anticipated surgery (2) Schizophrenia Current Visit: Yes Status: Acute Code(s): F20.9 - SCHIZOPHRENIA, UNSPECIFIED SNOMED Code(s): 52963173 Comment: cont outpatient meds compensated (3) Seizure disorder Current Visit: Yes Status: Acute Code(s): G40.909 - EPILEPSY, UNSP, NOT INTRACTABLE, WITHOUT STATUS EPILEPTICUS SNOMED Code(s): 839584217 Comment: no recent seizures reported, cont Keppra (4) Asthma Current Visit: Yes Status: Acute Code(s): J45.909 - UNSPECIFIED ASTHMA, UNCOMPLICATED SNOMED Code(s): 158066444 Comment: not in exacerbation, cont home meds Status and Disposition: thank you for consult, will follow
[2017-11-26] MEDS: Magnesium Hydroxide LIQ* 30 ML UDC PO PRN (12:31)
--- NOTE | 2017-11-26 14:50 | OP ---
DATE OF OPERATION: 11/25/17 - ROOM #336 DATE OF : 57 SURGEON: Karan Fowler MD BIOCHEMISTRY SPECIALIST: ALVIN Christopher ANESTHESIOLOGIST: Dr. Lake. ANESTHESIA: General. PRE-OP DIAGNOSES: Left fifth CMC dislocation and left fourth CMC dislocation, status post closed reduction and percutaneous pinning with failure fixation and then complicated by infection of the pins, now with a probable septic joint. POST-OP DIAGNOSES: 1. Left hand septic wrist and carpometacarpal joints. 2. Left fifth CMC dislocation and left fourth CMC fracture dislocation. OPERATIVE PROCEDURE: Irrigation and debridement of postoperative infection of the left carpometacarpal joint and left wrist joint including the midcarpal joint. The radiocarpal joint did not appear to be involved. INDICATIONS: Clovis had his initial surgery on 11/03/17. At his first postoperative visit, complete loss of fixation and recurrent dislocation was noted. He was going to follow up with me and then, as best I can tell, it appears that the pins became infected. He was taken for an I and D of his pin tracks and IV antibiotics in [facility]. He was discharged home. He was seen in my office for the first time on Thursday where he was noted to have some continued hyperemia and swelling, and a little bit of seropurulent drainage from the site of the I and D. I thought we better put him back in the hospital on broad-spectrum antibiotics, get the results from the other hospital and plan for irrigation and a more formal deep irrigation and debridement. It is going to be very difficult to get the fourth and fifth CMC joints relocated. The fifth has been sitting almost 1.5 cm short for quite sometime, probably about 3 weeks. Irrespective of we have to get the infection treated first, I plan today to bring him back for an arthrotomy of the joint, deep debridement and get everything nice and clean, get some cultures, make sure he is on appropriate antibiotics. If I could get the bones in reasonable alignment, I would try to do so and pin them outside the zone of infection. ESTIMATED BLOOD LOSS: 5 mL. COMPLICATIONS: None. FINDINGS: A lot of murky fluid all around the CMC joints and in the midcarpal joint. The radiocarpal joint did not appear to be involved. DESCRIPTION OF PROCEDURE: Clovis was seen in the preoperative holding area. The correct site, side, and procedure were identified. Informed consent was obtained from the patient. He does live in a senior care and has some mental disability; however, he signs his own consent forms and we are able to do consent today. Once we got back in the operating room, the arm was prepped and draped with Betadine scrub and a time-out was performed. I exsanguinate the arm with the Esmarch. Tourniquet was inflated to 250 mmHg. I then made a curvilinear incision over the dorsum of the hand. Dissection was carried down. Full thickness flaps were raised off the paratenon. I came just radial to the fifth dorsal compartment tendons and made a longitudinal incision which took me down to the joint capsule. An arthrotomy was made. There was a large amount of murky fluid that came out. I went ahead and released the soft tissue out the dorsum of the hamate and opened up the midcarpal joint as well as I did a full debridement of the CMC joints. The fifth metacarpal base was sitting ulnar to the body of the metacarpal and it was abutting the triquetrum. I debrided all devitalized tissue. I debrided out the soft callus that looked infected. Once I had everything nice and clean and all the tissue was looking good, I went ahead and irrigated everything out with multiple liters of saline using the cysto tubing. After that was done, I opened up the radiocarpal joint, this looked okay. I attempted to get the 5th CMC joint reduced and out to length. I could not get it out to length despite significant soft tissue release. Once everything was nice and clean, I closed the joint capsules with some 4-0 Prolene suture. Skin was closed loosely with 4-0 nylon suture. A cock -up wrist splint was applied. He was taken to the recovery room in stable condition. POSTOPERATIVE PLAN: He is already on vancomycin and Zosyn. We will follow up the culture results. I think we will go ahead and discontinue the Zosyn soon and if it is indeed MRSA as cultures from [facility] would indicate, he is going to get IV antibiotics and hopefully we can come back and address the dislocations soon. We will have some distraction devices available when we return to the OR to help us get the joint reduced. I will have to put pins back in when we return to the OR. [id number]/[facility] #: [id number] DEVANTE
[2017-11-26] MEDS ORDERED: Vancomycin Trough Check NOTE FOLLOW UP ONE (19:30)
[2017-11-26] MEDS: Omeprazole CAP* 20 MG PO SCH (20:31)
[2017-11-26] MEDS: QUEtiapine TAB* 300 MG PO SCH (20:31)
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
[2017-11-27 05:49] LABS: ABS Basophils 0.1 10^3/ul (0-0.2); ABS Eosinophils 0.3 10^3/ul (0-0.6); ABS Lymphocytes 0.9 10^3/ul (1.0-4.8); ABS Monocytes 0.8 10^3/ul (0-0.8); ABS Neutrophils 9.4 10^3/ul (1.5-7.7); ABS Nucleated RBC 0 10^3/ul; Eosinophil % 2.9 % (0-6); Hematocrit 37 % (42-52); Hemoglobin 12.4 g/dl (14.0-18.0); Lymphocyte % 7.8 % (25-47); Mean Corpuscular HGB Conc 34 g/dl (31-36); Mean Corpuscular Hemoglobin 29 pg (27-31); Mean Corpuscular Volume 85 fL (80-94); Mean Platelet Volume 6.5 um3 (7.4-10.4); Nucleated Red Blood Cells % 0; Platelet Count 321 10^3/ul (150-450); Red Blood Count 4.34 10^6/ul (4.00-5.40); Red Cell Distribution Width 15 % (10.5-15); White Blood Count 11.4 10^3/ul (3.5-10.8)
[2017-11-27] MEDS: oxyCODONE/Acetamin 5/325 MG* TAB PO PRN ×2 (06:15→10:25)
[2017-11-27] MEDS: Fluticasone NASAL SPRAY 50MCG* 16 gm SPRAY BTL BOTH NARES SCH ×2 (08:41→22:18)
[2017-11-27] MEDS: Acetaminophen TAB* 325 MG PO PRN ×3 (08:41→20:12)
[2017-11-27] MEDS: Heparin VIAL(*) 5000 UNITS/ML VIAL (FIVE THOUSAND) SUBCUT SCH ×2 (08:41→22:18)
[2017-11-27] MEDS: Cetirizine* 10 MG TAB PO SCH (08:41)
[2017-11-27] MEDS: Benztropine TAB* 1 MG PO SCH ×2 (08:41→22:13)
[2017-11-27] MEDS: Perphenazine TAB* 2 MG PO SCH ×2 (08:41→22:17)
[2017-11-27] MEDS: levETIRAcetam TAB* 500 MG PO SCH ×2 (08:41→22:14)
[2017-11-27] MEDS: Polyethylene Glycol 3350* 17 GM PACKET PO SCH ×2 (08:41→22:14)
[2017-11-27] MEDS: VANCOMYCIN 1500 MG IVPB SCH ×4 (08:41→20:12)
--- NOTE | 2017-11-27 11:48 | PN ---
Progress Note - Progress Note Date of Service: 11/27/17 SOAP: Subjective: CC: left hand infection HPI: 62 year old man with left hand fx s/p closed reduction/fixation complicated by MRSA hardware infection. I&D here, pin removal. Some pain in hand which is less swollen today. No fever, rash, or diarrhea. Objective: Vital Signs Temp 36.7 C 11/27/17 07:54 Pulse 108 11/27/17 07:54 Resp 17 11/27/17 11:06 BP 132/85 11/27/17 07:54 Pulse Ox 97 11/27/17 07:54 Intake & Output 11/26/17 11/27/17 11/27/17 18:59 06:59 18:59 Intake Total 570 1024 1076 Output Total 700 Balance -130 1024 1076 Intake: IV Fluids 224 10 ABX - VANCOMYCIN 224 NS 10 IVPB 281 ABX - VANCOMYCIN 281 Oral 570 800 785 Output: Urine 700 Other: Estimated Void Medium # Voids 2 Gen:awake, no distress HEENT: no thrush Heart:RRR no murmur MSK: L fand casted , fingers edematous Skin: no rash Microbiology 11/25/17 16:34 Skin and Soft Tissue MRSA/MSSA (PCR - Final Hand Left Mrsa Negative S.aureus Negative Gram Stain - Final Wound Culture - Preliminary No Growth Day 2 11/25/17 16:34 Anaerobic Culture - Preliminary Wound - Left No Growth Day 2 11/25/17 16:34 Anaerobic Culture - Preliminary Wound - Left No Growth Day 2 11/25/17 16:34 Gram Stain - Final Hand Left Wound Culture - Preliminary No Growth Day 2 11/24/17 16:45 Gram Stain - Final Hand Left Wound Culture - Final No Growth Day 2 Laboratory Results - last 24 hr 11/26/17 11/26/17 11/27/17 05:12 19:23 05:11 WBC 11.4 H RBC 4.34 Hgb 12.4 L Hct 37 L MCV 85 MCH 29 MCHC 34 RDW 15 Plt Count 321 MPV 6.5 L Neut % (Auto) 81.9 Lymph % (Auto) 7.8 L [place] % (Auto) 6.9 Eos % (Auto) 2.9 Baso % (Auto) 0.5 Absolute Neuts (auto) 9.4 H Absolute Lymphs (auto) 0.9 L Absolute Monos (auto) 0.8 Absolute Eos (auto) 0.3 Absolute Basos (auto) 0.1 Absolute Nucleated RBC 0 Nucleated RBC % 0 C-Reactive Protein Vancomycin Trough 14.5 Hepatitis C Antibody Nonreactive 11/27/17 05:11 WBC RBC Hgb Hct MCV MCH MCHC RDW Plt Count MPV Neut % (Auto) Lymph % (Auto) [place] % (Auto) Eos % (Auto) Baso % (Auto) Absolute Neuts (auto) Absolute Lymphs (auto) Absolute Monos (auto) Absolute Eos (auto) Absolute Basos (auto) Absolute Nucleated RBC Nucleated RBC % C-Reactive Protein 117.50 H Vancomycin Trough Hepatitis C Antibody Ladd operative cultures left hand: MRSA Assessment: 1. MRSA acute osteomyelitis left hand, associated with fixation hardware s/p I& D and hardware removal 2. Developmental delay 3.T2 diabetes mellitus Plan: 1. continu vancomycin goal tr 15-20 day with weekly cbc, cmp, crp, vanco trough, eventual PICC.
[2017-11-27] MEDS ORDERED: Magnesium Hydroxide LIQ* 30 ML UDC PO ONE (14:15)
[2017-11-27] MEDS ORDERED: Polyethylene Glycol 3350* 17 GM PACKET PO PRN (14:15)
--- NOTE | 2017-11-27 14:23 | PN ---
Subjective Date of Service: 11/27/17 Interval History: Pain adequately controlled with ibuprofen. Constipated. Objective Active Medications: Acetaminophen (Tylenol Tab*) 650 mg PO Q4H PRN PRN Reason: FEVER/PAIN Last Admin: 11/27/17 08:41 Dose: 650 mg Benztropine Mesylate (Cogentin Tab*) 0.5 mg PO BID [facility] Last Admin: 11/27/17 08:41 Dose: 0.5 mg Cetirizine HCl (Zyrtec*) 10 mg PO DAILY [facility] Last Admin: 11/27/17 08:41 Dose: 10 mg Diphenhydramine HCl (Benadryl Iv*) 25 mg IV Q6H PRN PRN Reason: itching Last Admin: 11/25/17 23:34 Dose: 25 mg Docusate Sodium (Colace Cap*) 100 mg PO BID PRN PRN Reason: CONSTIPATION Fluticasone Propionate (Flonase Nasal [place] 50mcg*) 1 spray BOTH NARES BID [facility] Last Admin: 11/27/17 08:41 Dose: 1 spray Heparin Sodium (Porcine) (Heparin Vial(*)) 5,000 units SUBCUT Q12HR [facility] Last Admin: 11/27/17 08:41 Dose: 5,000 units Vancomycin HCl 1,500 mg/ (Sodium Chloride) 250 mls @ 166.667 mls/hr IVPB Q12H [facility] Last Admin: 11/27/17 08:41 Dose: 166.667 mls/hr Levetiracetam (Keppra Tab*) 500 mg PO BID [facility] Last Admin: 11/27/17 08:41 Dose: 500 mg Magnesium Hydroxide (Milk Of Magnesia Liq*) 30 ml PO Q6H PRN PRN Reason: constipation Last Admin: 11/26/17 12:31 Dose: 30 ml Magnesium Hydroxide (Milk Of Magnesia Liq*) 60 ml PO ONCE ONE Stop: 11/27/17 14:16 Morphine Sulfate (Morphine Vial*) 2 mg IV Q2H PRN PRN Reason: PAIN - BREAKTHROUGH Last Admin: 11/25/17 18:19 Dose: 2 mg Omeprazole (Prilosec Cap*) 20 mg PO BEDTIME [facility] Last Admin: 11/26/17 20:31 Dose: 20 mg Oxycodone/Acetaminophen (Percocet 5/325 Tab*) 2 tab PO Q4H PRN PRN Reason: PAIN - MODERATE Last Admin: 11/26/17 07:36 Dose: 2 tab Oxycodone/Acetaminophen (Percocet 5/325 Tab*) 1 tab PO Q4H PRN PRN Reason: PAIN - MILD Last Admin: 11/27/17 06:15 Dose: 1 tab Perphenazine (Trilafon Tab*) 16 mg PO BID [facility] Last Admin: 11/27/17 08:41 Dose: 16 mg Pharmacy Consult (Vancomycin Per Pharmacy*) 1 note FOLLOW UP .VANC PER PHARMACY [facility] Polyethylene Glycol/Electrolytes (Miralax*) 17 gm PO 0800,2100 [facility] Last Admin: 11/27/17 08:41 Dose: 17 gm Polyethylene Glycol/Electrolytes (Miralax*) 17 gm PO DAILY PRN PRN Reason: CONSTIPATION Quetiapine Fumarate (Seroquel Tab*) 300 mg PO BEDTIME [facility] Last Admin: 11/26/17 20:31 Dose: 300 mg Vital Signs - 8 hr 11/27/17 11/27/17 11/27/17 07:54 08:00 11:06 Temperature 98.1 F Pulse Rate 108 Respiratory 17 17 17 Rate Blood Pressure 132/85 (mmHg) O2 Sat by Pulse 97 Oximetry 11/27/17 11/27/17 11:44 12:18 Temperature 98.2 F Pulse Rate 86 Respiratory 20 Rate Blood Pressure 133/75 (mmHg) O2 Sat by Pulse 98 97 Oximetry Oxygen Devices in Use Now: None Appearance: Alert, walking in the more. Neutral affect. Looks comfortable. Eyes: No Scleral Icterus Extremities: No Edema, No Clubbing, Cyanosis, - - L hand/wrist bandaged. Skin: No Rash or Ulcers, No Nodules or Sclerosis, - Neurological: Alert and Oriented x 3, NL Sensation Result Diagrams: 11/27/17 05:11 11/26/17 05:12 Microbiology and Other Data: Microbiology 11/24/17 16:45 Gram Stain - Final Hand Left Wound Culture - Preliminary No Growth Day 1 Assess/Plan/Problems-Billing Assessment: 62 yo M with h/o schizophrenia , seizures, HTN (on no BP meds at home) s/p left hand surgery and pinning with post op infection - Patient Problems (1) Infection of left hand Current Visit: Yes Status: Acute Code(s): L08.9 - LOCAL INFECTION OF THE SKIN AND SUBCUTANEOUS TISSUE, UNSP SNOMED Code(s): 203908637 Comment: Had open debridement of L wrist/hand 11/25. Dr. Koch's consultation appreciated. Plan vanco 42 days trough -, day 1 was 11/25. (2) Schizophrenia Current Visit: Yes Status: Acute Code(s): F20.9 - SCHIZOPHRENIA, UNSPECIFIED SNOMED Code(s): 93631971 Comment: cont outpatient meds compensated (3) Seizure disorder Current Visit: Yes Status: Acute Code(s): G40.909 - EPILEPSY, UNSP, NOT INTRACTABLE, WITHOUT STATUS EPILEPTICUS SNOMED Code(s): 304237057 Comment: no recent seizures reported, cont Keppra (4) Asthma Current Visit: Yes Status: Acute Code(s): J45.909 - UNSPECIFIED ASTHMA, UNCOMPLICATED SNOMED Code(s): 350537340 Comment: not in exacerbation, cont home meds Status and Disposition: thank you for consult, will follow
--- NOTE | 2017-11-27 16:28 | PN ---
Progress Note - Progress Note Date of Service: 11/27/17 SOAP: Subjective: Left hand infection, doing ok. Pt anxious to leave hospital, reminded of plan. Still complains of some pain in hand. Denies CP/SOB, f/c. Objective: Vitals: Temp Pulse Resp BP Pulse Ox 98.2 F 86 20 133/75 97 11/27/17 11:44 11/27/17 11:44 11/27/17 11:44 11/27/17 11:44 11/27/17 12:18 Gen: A&Ox3, NAD at rest sitting in chair LUE: Dressing C/D/I, moderate edema to fingers, no erythema. +f/e at MCP/PIP/ DIP joints. N/V intact Labs: Laboratory Results - last 24 hr 11/26/17 11/26/17 11/27/17 05:12 19:23 05:11 WBC 11.4 H RBC 4.34 Hgb 12.4 L Hct 37 L MCV 85 MCH 29 MCHC 34 RDW 15 Plt Count 321 MPV 6.5 L Neut % (Auto) 81.9 Lymph % (Auto) 7.8 L [place] % (Auto) 6.9 Eos % (Auto) 2.9 Baso % (Auto) 0.5 Absolute Neuts (auto) 9.4 H Absolute Lymphs (auto) 0.9 L Absolute Monos (auto) 0.8 Absolute Eos (auto) 0.3 Absolute Basos (auto) 0.1 Absolute Nucleated RBC 0 Nucleated RBC % 0 C-Reactive Protein Vancomycin Trough 14.5 Hepatitis C Antibody Nonreactive 11/27/17 05:11 WBC RBC Hgb Hct MCV MCH MCHC RDW Plt Count MPV Neut % (Auto) Lymph % (Auto) [place] % (Auto) Eos % (Auto) Baso % (Auto) Absolute Neuts (auto) Absolute Lymphs (auto) Absolute Monos (auto) Absolute Eos (auto) Absolute Basos (auto) Absolute Nucleated RBC Nucleated RBC % C-Reactive Protein 117.50 H Vancomycin Trough Hepatitis C Antibody Assessment: Left hand infection/osteomyelitis Plan: IV Abx per ID Continue current pain medication Encouraged pt to continue ROM at fingers, elevate hand Return to OR 11/30/17
[2017-11-27] MEDS: Omeprazole CAP* 20 MG PO SCH (22:13)
[2017-11-27] MEDS: QUEtiapine TAB* 300 MG PO SCH (22:13)
[2017-11-28 07:51] LABS: EGFR Non-African American 77.8 (>60)
[2017-11-28] MEDS: VANCOMYCIN 1500 MG IVPB SCH ×2 (08:13)
[2017-11-28] MEDS: Polyethylene Glycol 3350* 17 GM PACKET PO SCH ×2 (08:13→20:16)
[2017-11-28] MEDS: Perphenazine TAB* 2 MG PO SCH ×2 (08:14→20:20)
[2017-11-28] MEDS: Benztropine TAB* 1 MG PO SCH ×2 (08:14→20:15)
[2017-11-28] MEDS: levETIRAcetam TAB* 500 MG PO SCH ×2 (08:14→20:18)
[2017-11-28] MEDS: Acetaminophen TAB* 325 MG PO PRN ×2 (08:15→22:46)
[2017-11-28] MEDS: Heparin VIAL(*) 5000 UNITS/ML VIAL (FIVE THOUSAND) SUBCUT SCH ×2 (08:16→20:19)
[2017-11-28 08:18] LABS: Vancomycin Trough 16.2 mcg/mL
[2017-11-28] MEDS: Fluticasone NASAL SPRAY 50MCG* 16 gm SPRAY BTL BOTH NARES SCH ×2 (08:47→20:18)
[2017-11-28] MEDS: Cetirizine* 10 MG TAB PO SCH (08:47)
--- NOTE | 2017-11-28 11:34 | PN ---
Progress Note - Progress Note Date of Service: 11/28/17 SOAP: Subjective: Pt slightly agitated in bed. Minimal complaint of pain. Denies F/C. Denies CP or SOB. Vital Signs: Temp Pulse Resp BP Pulse Ox 98.2 F 99 16 119/62 97 11/28/17 07:53 11/28/17 07:53 11/28/17 07:53 11/28/17 07:53 11/28/17 07:53 Objective: Awake and alert, NAD Dressing C/D/I, Moderate edema to fingers. No erythema, N/V intact distally. Laboratory Last Values WBC 11.4 10^3/ul (3.5-10.8) H 11/27/17 05:11 RBC 4.34 10^6/ul (4.00-5.40) 11/27/17 05:11 Hgb 12.4 g/dl (14.0-18.0) L 11/27/17 05:11 Hct 37 % (42-52) L 11/27/17 05:11 MCV 85 fL (80-94) 11/27/17 05:11 MCH 29 pg (27-31) 11/27/17 05:11 MCHC 34 g/dl (31-36) 11/27/17 05:11 RDW 15 % (10.5-15) 11/27/17 05:11 Plt Count 321 10^3/ul (150-450) 11/27/17 05:11 MPV 6.5 um3 (7.4-10.4) L 11/27/17 05:11 Neut % (Auto) 81.9 % (38-83) 11/27/17 05:11 Lymph % (Auto) 7.8 % (25-47) L 11/27/17 05:11 [place] % (Auto) 6.9 % (0-7) 11/27/17 05:11 Eos % (Auto) 2.9 % (0-6) 11/27/17 05:11 Baso % (Auto) 0.5 % (0-2) 11/27/17 05:11 Absolute Neuts (auto) 9.4 10^3/ul (1.5-7.7) H 11/27/17 05:11 Absolute Lymphs (auto) 0.9 10^3/ul (1.0-4.8) L 11/27/17 05:11 Absolute Monos (auto) 0.8 10^3/ul (0-0.8) 11/27/17 05:11 Absolute Eos (auto) 0.3 10^3/ul (0-0.6) 11/27/17 05:11 Absolute Basos (auto) 0.1 10^3/ul (0-0.2) 11/27/17 05:11 Absolute Nucleated RBC 0 10^3/ul 11/27/17 05:11 Nucleated RBC % 0 11/27/17 05:11 INR (Anticoag Therapy) 1.07 (0.77-1.02) H 11/25/17 05:40 Sodium 135 mmol/L (135-145) 11/26/17 05:12 Potassium 4.4 mmol/L (3.5-5.0) 11/26/17 05:12 Chloride 104 mmol/L (101-111) 11/26/17 05:12 Carbon Dioxide 24 mmol/L (22-32) 11/26/17 05:12 Anion Gap 7 mmol/L (2-11) 11/26/17 05:12 BUN 14 mg/dL (6-24) 11/28/17 07:30 Creatinine 0.98 mg/dL (0.67-1.17) 11/28/17 07:30 Est GFR ( Amer) 94.1 (>60) 11/28/17 07:30 Est GFR (Non-Af Amer) 77.8 (>60) 11/28/17 07:30 BUN/Creatinine Ratio 11.2 (8-20) 11/26/17 05:12 Glucose 86 mg/dL (70-100) 11/26/17 05:12 Calcium 8.7 mg/dL (8.6-10.3) 11/26/17 05:12 Total Bilirubin 0.30 mg/dL (0.2-1.0) 11/26/17 05:12 AST 63 U/L (13-39) H 11/26/17 05:12 ALT 80 U/L (7-52) H 11/26/17 05:12 Alkaline Phosphatase 73 U/L (34-104) 11/26/17 05:12 C-Reactive Protein 117.50 mg/L (<8.01) H 11/27/17 05:11 Total Protein 6.2 g/dL (6.4-8.9) L 11/26/17 05:12 Albumin 3.3 g/dL (3.2-5.2) 11/26/17 05:12 Globulin 2.9 g/dL (2-4) 11/26/17 05:12 Albumin/Globulin Ratio 1.1 (1-3) 11/26/17 05:12 Vancomycin Trough 16.2 mcg/mL 11/28/17 07:30 Hepatitis C Antibody Nonreactive (Nonreactive) 11/26/17 05:12 Assessment: 62 yo male left hand infection s/p I&D Plan: Continue IV abx per ID Pain control Finger ROM encouraged Return to OR 11/30/17
[2017-11-28] MEDS: oxyCODONE/Acetamin 5/325 MG* TAB PO PRN ×3 (11:42→20:16)
--- NOTE | 2017-11-28 12:16 | PN ---
Subjective Date of Service: 11/28/17 Interval History: Patient anxiously awaiting lunch. He reports a good BM after MOM yesterday. No new c/o. Objective Active Medications: Acetaminophen (Tylenol Tab*) 650 mg PO Q4H PRN PRN Reason: FEVER/PAIN Last Admin: 11/28/17 08:15 Dose: 650 mg Benztropine Mesylate (Cogentin Tab*) 0.5 mg PO BID [facility] Last Admin: 11/28/17 08:14 Dose: 0.5 mg Cetirizine HCl (Zyrtec*) 10 mg PO DAILY [facility] Last Admin: 11/28/17 08:47 Dose: 10 mg Diphenhydramine HCl (Benadryl Iv*) 25 mg IV Q6H PRN PRN Reason: itching Last Admin: 11/25/17 23:34 Dose: 25 mg Docusate Sodium (Colace Cap*) 100 mg PO BID PRN PRN Reason: CONSTIPATION Fluticasone Propionate (Flonase Nasal [place] 50mcg*) 1 spray BOTH NARES BID [facility] Last Admin: 11/28/17 08:47 Dose: 1 spray Heparin Sodium (Porcine) (Heparin Vial(*)) 5,000 units SUBCUT Q12HR [facility] Last Admin: 11/28/17 08:16 Dose: 5,000 units Vancomycin HCl 1,500 mg/ (Sodium Chloride) 250 mls @ 166.667 mls/hr IVPB Q12H [facility] Last Admin: 11/28/17 08:13 Dose: 166.667 mls/hr Levetiracetam (Keppra Tab*) 500 mg PO BID [facility] Last Admin: 11/28/17 08:14 Dose: 500 mg Magnesium Hydroxide (Milk Of Magnesia Liq*) 30 ml PO Q6H PRN PRN Reason: constipation Last Admin: 11/26/17 12:31 Dose: 30 ml Morphine Sulfate (Morphine Vial*) 2 mg IV Q2H PRN PRN Reason: PAIN - BREAKTHROUGH Last Admin: 11/25/17 18:19 Dose: 2 mg Omeprazole (Prilosec Cap*) 20 mg PO BEDTIME [facility] Last Admin: 11/27/17 22:13 Dose: 20 mg Oxycodone/Acetaminophen (Percocet 5/325 Tab*) 2 tab PO Q4H PRN PRN Reason: PAIN - MODERATE Last Admin: 11/26/17 07:36 Dose: 2 tab Oxycodone/Acetaminophen (Percocet 5/325 Tab*) 1 tab PO Q4H PRN PRN Reason: PAIN - MILD Last Admin: 11/28/17 11:42 Dose: 1 tab Perphenazine (Trilafon Tab*) 16 mg PO BID [facility] Last Admin: 11/28/17 08:14 Dose: 16 mg Pharmacy Consult (Vancomycin Per Pharmacy*) 1 note FOLLOW UP .VANC PER PHARMACY [facility] Polyethylene Glycol/Electrolytes (Miralax*) 17 gm PO 0800,2100 [facility] Last Admin: 11/28/17 08:13 Dose: 17 gm Polyethylene Glycol/Electrolytes (Miralax*) 17 gm PO DAILY PRN PRN Reason: CONSTIPATION Quetiapine Fumarate (Seroquel Tab*) 300 mg PO BEDTIME [facility] Last Admin: 11/27/17 22:13 Dose: 300 mg Vital Signs - 8 hr 11/28/17 11/28/17 11/28/17 07:53 11:35 11:42 Temperature 98.2 F 98.1 F Pulse Rate 99 85 Respiratory 16 16 18 Rate Blood Pressure 119/62 133/59 (mmHg) O2 Sat by Pulse 97 94 Oximetry Oxygen Devices in Use Now: None Appearance: Alert, walking in his room, somewhat anxious but otherwise seems comfortable. Eyes: No Scleral Icterus Extremities: No Edema, No Clubbing, Cyanosis, - - L arm bandaged with elastic wrap Skin: No Rash or Ulcers, No Nodules or Sclerosis, - Neurological: Alert and Oriented x 3, NL Sensation, NL Gait Result Diagrams: 11/27/17 05:11 11/28/17 07:30 Microbiology and Other Data: Microbiology 11/24/17 16:45 Gram Stain - Final Hand Left Wound Culture - Preliminary No Growth Day 1 Assess/Plan/Problems-Billing Assessment: 62 yo M with h/o schizophrenia , seizures, HTN (on no BP meds at home) s/p left hand surgery and pinning with post op infection - Patient Problems (1) Infection of left hand Current Visit: Yes Status: Acute Code(s): L08.9 - LOCAL INFECTION OF THE SKIN AND SUBCUTANEOUS TISSUE, UNSP SNOMED Code(s): 087063907 Comment: Had open debridement of L wrist/hand 11/25. Dr. Koch's consultation appreciated. Plan vanco 42 days trough 15-20, day 1 was 11/25. (2) Schizophrenia Current Visit: Yes Status: Acute Code(s): F20.9 - SCHIZOPHRENIA, UNSPECIFIED SNOMED Code(s): 18874881 Comment: cont outpatient meds compensated. PRN quetiapine dose ordered. (3) Seizure disorder Current Visit: Yes Status: Acute Code(s): G40.909 - EPILEPSY, UNSP, NOT INTRACTABLE, WITHOUT STATUS EPILEPTICUS SNOMED Code(s): 726723344 Comment: no recent seizures reported, cont Keppra (4) Asthma Current Visit: Yes Status: Acute Code(s): J45.909 - UNSPECIFIED ASTHMA, UNCOMPLICATED SNOMED Code(s): 476987666 Comment: not in exacerbation, cont home meds (5) Constipation Current Visit: Yes Status: Acute Code(s): K59.00 - CONSTIPATION, UNSPECIFIED SNOMED Code(s): 67480267 Comment: Patient reports good BM after MOM 11/27. PEG ordered hs start 11/28. Status and Disposition: thank you for consult, will follow
[2017-11-28] MEDS: Vancomycin(*) 1,250 MG in NS 0.9% 250 ML* 250 ML IVPB SCH (20:01)
[2017-11-28] MEDS: Omeprazole CAP* 20 MG PO SCH (20:15)
[2017-11-28] MEDS: QUEtiapine TAB* 300 MG PO SCH (20:15)
[2017-11-28] MEDS ORDERED: Polyethylene Glycol 3350* 17 GM PACKET PO SCH (21:00)
[2017-11-29] MEDS: Vancomycin(*) 1,250 MG in NS 0.9% 250 ML* 250 ML IVPB SCH ×2 (08:35→20:07)
[2017-11-29] MEDS: Polyethylene Glycol 3350* 17 GM PACKET PO SCH ×2 (08:35→20:06)
[2017-11-29] MEDS: Cetirizine* 10 MG TAB PO SCH (09:30)
[2017-11-29] MEDS: Heparin VIAL(*) 5000 UNITS/ML VIAL (FIVE THOUSAND) SUBCUT SCH ×2 (09:31→20:14)
[2017-11-29] MEDS: Benztropine TAB* 1 MG PO SCH ×2 (09:31→20:11)
[2017-11-29] MEDS: Fluticasone NASAL SPRAY 50MCG* 16 gm SPRAY BTL BOTH NARES SCH ×2 (09:31→20:10)
[2017-11-29] MEDS: Perphenazine TAB* 2 MG PO SCH ×2 (09:31→20:12)
[2017-11-29] MEDS: levETIRAcetam TAB* 500 MG PO SCH ×2 (09:31→20:09)
[2017-11-29] MEDS: Acetaminophen TAB* 325 MG PO PRN ×3 (11:02→20:09)
--- NOTE | 2017-11-29 14:46 | PN ---
Progress Note - Progress Note Date of Service: 11/29/17 Note: [place] is now POD#4 s/p I&D of left hand CMC and midcarpal joint infections. He has a dislocated 5th CMC and a 4th CMC fracture dislocation that failed a prior attempt at closed reduction and pinning elsewhere. He reports mild discomfort in the area. He's able to move finger 2-4 but not really the small finger due to discomfort. He has been on vancomycin per his prior cultures at [facility] which showed MRSA. VSS. Most recent CRP >100. WBC decreased to 11.4 down from 19. Repeat cultures have all been negative. He was on cipro and flagyl. A/P: POD#4 s/p I&D. We will plan to return to the operating room tomorrow for irrigation and debridement of the left hand infection and open reduction and pinning of the left fourth and fifth carpometacarpal dislocations. He understands there is a risk of persistent infection requiring additional surgery. He understands the risk of stiffness and poor function in the hand which could require additional surgery and even up to a 5th ray amputation. The joint has been dislocated since the end of October so this is a very difficult situation.
--- NOTE | 2017-11-29 16:34 | PN ---
Subjective Date of Service: 11/29/17 Interval History: N c/o, seems content. Good appetite. He states he had 2 BM's today. Objective Active Medications: Acetaminophen (Tylenol Tab*) 650 mg PO Q4H PRN PRN Reason: FEVER/PAIN Last Admin: 11/29/17 15:25 Dose: 650 mg Benztropine Mesylate (Cogentin Tab*) 0.5 mg PO BID [facility] Last Admin: 11/29/17 09:31 Dose: 0.5 mg Cetirizine HCl (Zyrtec*) 10 mg PO DAILY [facility] Last Admin: 11/29/17 09:30 Dose: 10 mg Diphenhydramine HCl (Benadryl Iv*) 25 mg IV Q6H PRN PRN Reason: itching Last Admin: 11/25/17 23:34 Dose: 25 mg Docusate Sodium (Colace Cap*) 100 mg PO BID PRN PRN Reason: CONSTIPATION Fluticasone Propionate (Flonase Nasal [place] 50mcg*) 1 spray BOTH NARES BID [facility] Last Admin: 11/29/17 09:31 Dose: 1 spray Heparin Sodium (Porcine) (Heparin Vial(*)) 5,000 units SUBCUT Q12HR [facility] Last Admin: 11/29/17 09:31 Dose: 5,000 units Vancomycin HCl 1,250 mg/ (Sodium Chloride) 250 mls @ 166.667 mls/hr IVPB 0800, 2000 [facility] Last Admin: 11/29/17 08:35 Dose: 166.667 mls/hr Levetiracetam (Keppra Tab*) 500 mg PO BID [facility] Last Admin: 11/29/17 09:31 Dose: 500 mg Magnesium Hydroxide (Milk Of Magnesia Liq*) 30 ml PO Q6H PRN PRN Reason: constipation Last Admin: 11/26/17 12:31 Dose: 30 ml Morphine Sulfate (Morphine Vial*) 2 mg IV Q2H PRN PRN Reason: PAIN - BREAKTHROUGH Last Admin: 11/25/17 18:19 Dose: 2 mg Omeprazole (Prilosec Cap*) 20 mg PO BEDTIME [facility] Last Admin: 11/28/17 20:15 Dose: 20 mg Oxycodone/Acetaminophen (Percocet 5/325 Tab*) 2 tab PO Q4H PRN PRN Reason: PAIN - MODERATE Last Admin: 11/26/17 07:36 Dose: 2 tab Oxycodone/Acetaminophen (Percocet 5/325 Tab*) 1 tab PO Q4H PRN PRN Reason: PAIN - MILD Last Admin: 11/28/17 20:16 Dose: 1 tab Perphenazine (Trilafon Tab*) 16 mg PO BID [facility] Last Admin: 11/29/17 09:31 Dose: 16 mg Pharmacy Consult (Vancomycin Per Pharmacy*) 1 note FOLLOW UP .VANC PER PHARMACY [facility] Pharmacy Profile Note (Vancomycin Trough Check) 1 note FOLLOW UP 0800 ONE Stop: 11/30/17 08:01 Polyethylene Glycol/Electrolytes (Miralax*) 17 gm PO 0800,2100 [facility] Last Admin: 11/29/17 08:35 Dose: 17 gm Polyethylene Glycol/Electrolytes (Miralax*) 17 gm PO DAILY PRN PRN Reason: CONSTIPATION Quetiapine Fumarate (Seroquel Tab*) 300 mg PO BEDTIME [facility] Last Admin: 11/28/17 20:15 Dose: 300 mg Quetiapine Fumarate (Seroquel Tab*) 50 mg PO Q4H PRN PRN Reason: AGITATION Vital Signs - 8 hr 11/29/17 11/29/17 11:55 15:16 Temperature 98.4 F 98.2 F Pulse Rate 122 109 Respiratory 17 16 Rate Blood Pressure 136/77 119/73 (mmHg) O2 Sat by Pulse 95 96 Oximetry Oxygen Devices in Use Now: None Appearance: Alert, on his L side in bed. Neutral affect. Looks comfortable. Eyes: No Scleral Icterus Extremities: No Edema, No Clubbing, Cyanosis, - - L hand/wrist bandaged Skin: No Rash or Ulcers, No Nodules or Sclerosis, - Neurological: Alert and Oriented x 3, NL Sensation Result Diagrams: 11/27/17 05:11 11/28/17 07:30 Microbiology and Other Data: Microbiology 11/24/17 16:45 Gram Stain - Final Hand Left Wound Culture - Preliminary No Growth Day 1 Assess/Plan/Problems-Billing Assessment: 62 yo M with h/o schizophrenia , seizures, HTN (on no BP meds at home) s/p left hand surgery and pinning with post op infection - Patient Problems (1) Infection of left hand Current Visit: Yes Status: Acute Code(s): L08.9 - LOCAL INFECTION OF THE SKIN AND SUBCUTANEOUS TISSUE, UNSP SNOMED Code(s): 309435598 Comment: Had open debridement of L wrist/hand 11/25, further debridement and pinning planned for 11/29. Dr. Koch's consultation appreciated. Plan vanco 42 days trough 15-20, day 1 was 11/25. (2) Schizophrenia Current Visit: Yes Status: Acute Code(s): F20.9 - SCHIZOPHRENIA, UNSPECIFIED SNOMED Code(s): 29081457 Comment: cont outpatient meds compensated. PRN quetiapine dose ordered. (3) Seizure disorder Current Visit: Yes Status: Acute Code(s): G40.909 - EPILEPSY, UNSP, NOT INTRACTABLE, WITHOUT STATUS EPILEPTICUS SNOMED Code(s): 114602010 Comment: no recent seizures reported, cont Keppra (4) Asthma Current Visit: Yes Status: Acute Code(s): J45.909 - UNSPECIFIED ASTHMA, UNCOMPLICATED SNOMED Code(s): 519461035 Comment: not in exacerbation, cont home meds (5) Constipation Current Visit: Yes Status: Acute Code(s): K59.00 - CONSTIPATION, UNSPECIFIED SNOMED Code(s): 56970911 Comment: Patient reported good BM after MOM 11/27. Continue PEG. Staff charted 3 BM's for 11/29. Status and Disposition: thank you for consult, will follow
[2017-11-29] MEDS: QUEtiapine TAB* 300 MG PO SCH (20:09)
[2017-11-29] MEDS: Omeprazole CAP* 20 MG PO SCH (20:09)
[2017-11-30 07:27] LABS: ABS Basophils 0.1 10^3/ul (0-0.2); ABS Eosinophils 0.3 10^3/ul (0-0.6); ABS Lymphocytes 0.9 10^3/ul (1.0-4.8); ABS Monocytes 0.7 10^3/ul (0-0.8); ABS Neutrophils 6.2 10^3/ul (1.5-7.7); ABS Nucleated RBC 0 10^3/ul; Eosinophil % 3.3 % (0-6); Hematocrit 40 % (42-52); Hemoglobin 13.7 g/dl (14.0-18.0); Lymphocyte % 11.6 % (25-47); Mean Corpuscular HGB Conc 35 g/dl (31-36); Mean Corpuscular Hemoglobin 29 pg (27-31); Mean Corpuscular Volume 83 fL (80-94); Mean Platelet Volume 6.4 um3 (7.4-10.4); Nucleated Red Blood Cells % 0; Platelet Count 369 10^3/ul (150-450); Red Blood Count 4.75 10^6/ul (4.00-5.40); Red Cell Distribution Width 15 % (10.5-15); White Blood Count 8.2 10^3/ul (3.5-10.8)
[2017-11-30 07:49] LABS: EGFR Non-African American 85.8 (>60)
[2017-11-30] MEDS ORDERED: Vancomycin Trough Check NOTE FOLLOW UP ONE (08:00)
[2017-11-30] MEDS: Heparin VIAL(*) 5000 UNITS/ML VIAL (FIVE THOUSAND) SUBCUT SCH ×2 (08:45→21:01)
[2017-11-30] MEDS: Acetaminophen TAB* 325 MG PO PRN ×2 (08:57→17:21)
[2017-11-30] MEDS: Benztropine TAB* 1 MG PO SCH ×2 (08:57→20:57)
[2017-11-30] MEDS: Fluticasone NASAL SPRAY 50MCG* 16 gm SPRAY BTL BOTH NARES SCH ×2 (08:57→20:55)
[2017-11-30] MEDS: Vancomycin(*) 1,250 MG in NS 0.9% 250 ML* 250 ML IVPB SCH ×2 (08:57→21:08)
[2017-11-30] MEDS: Perphenazine TAB* 2 MG PO SCH ×2 (08:58→20:59)
[2017-11-30] MEDS: Polyethylene Glycol 3350* 17 GM PACKET PO SCH ×2 (08:59→20:56)
[2017-11-30] MEDS: levETIRAcetam TAB* 500 MG PO SCH ×2 (08:59→20:58)
[2017-11-30] MEDS: Cetirizine* 10 MG TAB PO SCH (08:59)
[2017-11-30 09:14] LABS: INR 1.07 (0.77-1.02)
--- NOTE | 2017-11-30 09:14 | PN ---
Subjective Date of Service: 11/30/17 Interval History: Requested by RN to evaluate pt prior to planned procedure at noon. Meds and labs reviewed. Phys. Exam other than aforementioned left extremity is unremarkable. Please see full note to be transcribed later. Pt able to walk the hallways without HDEZ, SOB, nor CP. His METs show no limitations to planned surgical procedure to address the primary issue. No other additional advise at this time. Objective Active Medications: Acetaminophen (Tylenol Tab*) 650 mg PO Q4H PRN PRN Reason: FEVER/PAIN Last Admin: 11/30/17 08:57 Dose: 650 mg Benztropine Mesylate (Cogentin Tab*) 0.5 mg PO BID [facility] Last Admin: 11/30/17 08:57 Dose: 0.5 mg Cetirizine HCl (Zyrtec*) 10 mg PO DAILY [facility] Last Admin: 11/30/17 08:59 Dose: 10 mg Diphenhydramine HCl (Benadryl Iv*) 25 mg IV Q6H PRN PRN Reason: itching Last Admin: 11/25/17 23:34 Dose: 25 mg Docusate Sodium (Colace Cap*) 100 mg PO BID PRN PRN Reason: CONSTIPATION Fluticasone Propionate (Flonase Nasal [place] 50mcg*) 1 spray BOTH NARES BID [facility] Last Admin: 11/30/17 08:57 Dose: 1 spray Heparin Sodium (Porcine) (Heparin Vial(*)) 5,000 units SUBCUT Q12HR [facility] Last Admin: 11/30/17 08:45 Dose: Not Given Vancomycin HCl 1,250 mg/ (Sodium Chloride) 250 mls @ 166.667 mls/hr IVPB 0800, 2000 [facility] Last Admin: 11/30/17 08:57 Dose: 166.667 mls/hr Levetiracetam (Keppra Tab*) 500 mg PO BID [facility] Last Admin: 11/30/17 08:59 Dose: 500 mg Magnesium Hydroxide (Milk Of Magnesia Liq*) 30 ml PO Q6H PRN PRN Reason: constipation Last Admin: 11/26/17 12:31 Dose: 30 ml Morphine Sulfate (Morphine Vial*) 2 mg IV Q2H PRN PRN Reason: PAIN - BREAKTHROUGH Last Admin: 11/25/17 18:19 Dose: 2 mg Omeprazole (Prilosec Cap*) 20 mg PO BEDTIME [facility] Last Admin: 11/29/17 20:09 Dose: 20 mg Oxycodone/Acetaminophen (Percocet 5/325 Tab*) 2 tab PO Q4H PRN PRN Reason: PAIN - MODERATE Last Admin: 11/26/17 07:36 Dose: 2 tab Oxycodone/Acetaminophen (Percocet 5/325 Tab*) 1 tab PO Q4H PRN PRN Reason: PAIN - MILD Last Admin: 11/28/17 20:16 Dose: 1 tab Perphenazine (Trilafon Tab*) 16 mg PO BID [facility] Last Admin: 11/30/17 08:58 Dose: 16 mg Pharmacy Consult (Vancomycin Per Pharmacy*) 1 note FOLLOW UP .VANC PER PHARMACY [facility] Polyethylene Glycol/Electrolytes (Miralax*) 17 gm PO 0800,2100 [facility] Last Admin: 11/30/17 08:59 Dose: 17 gm Quetiapine Fumarate (Seroquel Tab*) 300 mg PO BEDTIME [facility] Last Admin: 11/29/17 20:09 Dose: 300 mg Quetiapine Fumarate (Seroquel Tab*) 50 mg PO Q4H PRN PRN Reason: AGITATION Oxygen Devices in Use Now: None Result Diagrams: 11/30/17 07:11 11/30/17 07:11 Microbiology and Other Data: Microbiology 11/24/17 16:45 Gram Stain - Final Hand Left Wound Culture - Preliminary No Growth Day 1 Assess/Plan/Problems-Billing Assessment: 62 yo M with h/o schizophrenia , seizures, HTN (on no BP meds at home) s/p left hand surgery and pinning with post op infection Status and Disposition: thank you for consult, will follow
--- NOTE | 2017-11-30 09:53 | PN ---
Progress Note - Progress Note Date of Service: 11/30/17 SOAP: Subjective: CC: left hand infection HPI: 62 year old man with left hand fx s/p closed reduction/fixation complicated by MRSA hardware infection. I&D here, pin removal. Pain in hand is controlled. No fever, rash, or diarrhea. Objective: Vital Signs Temp 36.4 C 11/30/17 01:05 Pulse 91 11/30/17 01:05 Resp 20 11/30/17 01:05 BP 117/56 11/30/17 01:05 Pulse Ox 96 11/30/17 01:05 Intake & Output 11/29/17 11/30/17 11/30/17 18:59 06:59 18:59 Intake Total 820 1000 Balance 820 1000 Intake: IV Fluids 25 NS 25 IVPB 250 ABX - VANCOMYCIN 250 Oral 545 1000 Other: Estimated Void Medium Medium # Voids 3 1 Gen:awake, no distress HEENT: no thrush Heart:RRR no murmur MSK: L hand casted , can move fingers Skin: no rash Laboratory Results - last 24 hr 11/30/17 11/30/17 11/30/17 07:11 07:11 07:27 WBC 8.2 RBC 4.75 Hgb 13.7 L Hct 40 L MCV 83 MCH 29 MCHC 35 RDW 15 Plt Count 369 MPV 6.4 L Neut % (Auto) 76.2 Lymph % (Auto) 11.6 L [place] % (Auto) 8.0 H Eos % (Auto) 3.3 Baso % (Auto) 0.9 Absolute Neuts (auto) 6.2 Absolute Lymphs (auto) 0.9 L Absolute Monos (auto) 0.7 Absolute Eos (auto) 0.3 Absolute Basos (auto) 0.1 Absolute Nucleated RBC 0 Nucleated RBC % 0 INR (Anticoag Therapy) Sodium 136 Potassium 4.4 Chloride 103 Carbon Dioxide 24 Anion Gap 9 BUN 15 Creatinine 0.90 Est GFR ( Amer) 103.8 Est GFR (Non-Af Amer) 85.8 BUN/Creatinine Ratio 16.7 Glucose 98 Calcium 9.5 C-React Prot High Sens 35.34 H Vancomycin Trough 16.1 11/30/17 08:43 WBC RBC Hgb Hct MCV MCH MCHC RDW Plt Count MPV Neut % (Auto) Lymph % (Auto) [place] % (Auto) Eos % (Auto) Baso % (Auto) Absolute Neuts (auto) Absolute Lymphs (auto) Absolute Monos (auto) Absolute Eos (auto) Absolute Basos (auto) Absolute Nucleated RBC Nucleated RBC % INR (Anticoag Therapy) 1.07 H Sodium Potassium Chloride Carbon Dioxide Anion Gap BUN Creatinine Est GFR ( Amer) Est GFR (Non-Af Amer) BUN/Creatinine Ratio Glucose Calcium C-React Prot High Sens Vancomycin Trough Assessment: 1. MRSA acute osteomyelitis left hand, associated with fixation hardware s/p I& D and hardware removal 2. Developmental delay 3.T2 diabetes mellitus Plan: 1. continue vancomycin goal tr 15-20 day with weekly cbc, cmp, crp, vanco trough. Ok for PICC. Another washout planned.
[2017-11-30] MEDS ORDERED: fentaNYL* 50 MCG/ML 2 ML VIAL (100 MCG VIAL) ONE (11:40)
[2017-11-30] MEDS ORDERED: Midazolam* 1 MG/ML 2 ML VIAL (2 MG) ONE (11:41)
[2017-11-30] MEDS: oxyCODONE/Acetamin 5/325 MG* TAB PO PRN (12:22)
--- NOTE | 2017-11-30 12:43 | PN ---
Progress Note - Progress Note Date of Service: 11/30/17 Note: He has been on vancomycin for 5 days now for MRSA. His WBC and CRP are all down. We will plan for repeat irrigation and debridement of the left wrist and open reduction internal fixation of the carpometacarpal dislocations today. I have explained the risk of recurrent infection and persistent pain and arthritis. He wishes to proceed.
[2017-11-30] MEDS ORDERED: Bupivacaine 0.5% SDV PF* 30ML VIAL ONE (14:34)
--- NOTE | 2017-11-30 15:05 | PN ---
Subjective Date of Service: 11/30/17 Interval History: Pt seen and examined. Meds and labs reviewed. Was called earlier by RN and re- quested to have pt be re-evaluated prior to planned repeat irrigation and debridement of the left wrist and ORIF of the carpometacarpal dislocations at noon. Pt mentioned he is able to walk to and from the bathroom and around the hallways without any CP, SOB, and/or HDEZ. No other active medical issues other than noted below was identified and no other advise from previous. Risks remain the same as initial eval and will defer further weighing risks and benefits with pt and surgical team. ROS: Denied TOURE/dizziness, F/C, N/V, CP, SOB, increased cough, sputum production , abd pain, diarrhea, constipation, dysuria, myalgias, arthralgias, throat pain , and new skin lesions. The rest of the 14 point ROS are unremarkable. PHYSICAL EXAM: GEN APPEARANCE: Awake, not in acute distress HEENT: NC/AT, PERRLA, moist oral mucosa, (-) throat erythema NECK: Soft, supple, (-) cervical LAD, (-)JVD HEART: S1S2 WNL, RRR, No MRG CHEST: CTA, BL, GAE, No W/R/R ABD: Soft, ND/NT, NABS 4x Q EXT: No C/C/LUE, wrapped with LAMINE bandages SKIN: Warm to touch PSYCH: No active psychosis, hallucinations, depression, SI/HI Objective Active Medications: Acetaminophen (Tylenol Tab*) 650 mg PO Q4H PRN PRN Reason: FEVER/PAIN Last Admin: 11/30/17 08:57 Dose: 650 mg Benztropine Mesylate (Cogentin Tab*) 0.5 mg PO BID [facility] Last Admin: 11/30/17 08:57 Dose: 0.5 mg Cetirizine HCl (Zyrtec*) 10 mg PO DAILY [facility]ST[facility] Last Admin: 11/30/17 08:59 Dose: 10 mg Diphenhydramine HCl (Benadryl Iv*) 25 mg IV Q6H PRN PRN Reason: itching Last Admin: 11/25/17 23:34 Dose: 25 mg Docusate Sodium (Colace Cap*) 100 mg PO BID PRN PRN Reason: CONSTIPATION Fluticasone Propionate (Flonase Nasal [place] 50mcg*) 1 spray BOTH NARES BID [facility] Last Admin: 11/30/17 08:57 Dose: 1 spray Heparin Sodium (Porcine) (Heparin Vial(*)) 5,000 units SUBCUT Q12HR [facility] Last Admin: 11/30/17 08:45 Dose: Not Given Vancomycin HCl 1,250 mg/ (Sodium Chloride) 250 mls @ 166.667 mls/hr IVPB 0800, 2000 [facility] Last Admin: 11/30/17 08:57 Dose: 166.667 mls/hr Levetiracetam (Keppra Tab*) 500 mg PO BID [facility] Last Admin: 11/30/17 08:59 Dose: 500 mg Magnesium Hydroxide (Milk Of Magnesia Liq*) 30 ml PO Q6H PRN PRN Reason: constipation Last Admin: 11/26/17 12:31 Dose: 30 ml Morphine Sulfate (Morphine Vial*) 2 mg IV Q2H PRN PRN Reason: PAIN - BREAKTHROUGH Last Admin: 11/25/17 18:19 Dose: 2 mg Omeprazole (Prilosec Cap*) 20 mg PO BEDTIME [facility] Last Admin: 11/29/17 20:09 Dose: 20 mg Oxycodone/Acetaminophen (Percocet 5/325 Tab*) 2 tab PO Q4H PRN PRN Reason: PAIN - MODERATE Last Admin: 11/26/17 07:36 Dose: 2 tab Oxycodone/Acetaminophen (Percocet 5/325 Tab*) 1 tab PO Q4H PRN PRN Reason: PAIN - MILD Last Admin: 11/30/17 12:22 Dose: 1 tab Perphenazine (Trilafon Tab*) 16 mg PO BID [facility] Last Admin: 11/30/17 08:58 Dose: 16 mg Pharmacy Consult (Vancomycin Per Pharmacy*) 1 note FOLLOW UP .VANC PER PHARMACY [facility] Polyethylene Glycol/Electrolytes (Miralax*) 17 gm PO 0800,2100 [facility] Last Admin: 11/30/17 08:59 Dose: 17 gm Quetiapine Fumarate (Seroquel Tab*) 300 mg PO BEDTIME [facility] Last Admin: 11/29/17 20:09 Dose: 300 mg Quetiapine Fumarate (Seroquel Tab*) 50 mg PO Q4H PRN PRN Reason: AGITATION Vital Signs - 8 hr 06/11/30/17 11/30/17 07:39 09:00 11:11 Temperature 98.3 F 97.4 F Pulse Rate 85 96 Respiratory 16 16 18 Rate Blood Pressure 116/96 111/59 (mmHg) O2 Sat by Pulse 97 96 Oximetry 11/30/17 12:22 Temperature Pulse Rate Respiratory 16 Rate Blood Pressure (mmHg) O2 Sat by Pulse Oximetry Oxygen Devices in Use Now: None Result Diagrams: 11/30/17 07:11 11/30/17 07:11 Microbiology and Other Data: Microbiology 11/24/17 16:45 Gram Stain - Final Hand Left Wound Culture - Preliminary No Growth Day 1 Assess/Plan/Problems-Billing Assessment: 62 yo M with h/o schizophrenia , seizures, HTN (on no BP meds at home) s/p left hand surgery and pinning with post op infection - Patient Problems (1) Infection of left hand Current Visit: Yes Status: Acute Code(s): L08.9 - LOCAL INFECTION OF THE SKIN AND SUBCUTANEOUS TISSUE, UNSP SNOMED Code(s): 293522046 Comment: -No additional recommendations prior to planned repeat irrigation and debridement of the left wrist and ORIF of the carpometacarpal dislocations today -Had open debridement of L wrist/hand 11/25, further debridement and pinning planned for 11/29. -Dr. Koch's consultation appreciated. -Vanco day #, with trough goal of: 15-20, currently at goal (2) Schizophrenia Current Visit: Yes Status: Acute Code(s): F20.9 - SCHIZOPHRENIA, UNSPECIFIED SNOMED Code(s): 35221117 Comment: -Cont outpatient meds -Compensated. PRN quetiapine dose ordered. (3) Asthma Current Visit: Yes Status: Acute Code(s): J45.909 - UNSPECIFIED ASTHMA, UNCOMPLICATED SNOMED Code(s): 206926096 Comment: -Not in exacerbation, cont home meds (4) Seizure disorder Current Visit: Yes Status: Acute Code(s): G40.909 - EPILEPSY, UNSP, NOT INTRACTABLE, WITHOUT STATUS EPILEPTICUS SNOMED Code(s): 666879546 Comment: -No recent seizures reported, cont Keppra (5) Constipation Current Visit: Yes Status: Acute Code(s): K59.00 - CONSTIPATION, UNSPECIFIED SNOMED Code(s): 64910707 Comment: -Continue PEG. Staff charted 3 BM's for 11/29. -Improved Status and Disposition: -Defer with orthopedics -Continue PT/OT -For possible D/C home? Will defer on re-eval after ORIF
[2017-11-30] MEDS ORDERED: Lidocaine 2% PF * 5 ML VIAL ONE (18:08)
[2017-11-30] MEDS ORDERED: Propofol* 10 MG/ML 20 ML BTL IV PUSH ONE (18:08)
--- NOTE | 2017-11-30 18:14 | PN ---
Progress Note - Progress Note Date of Service: 11/30/17 Note: We will plan for surgery tomorrow due to the late hour. He may eat and we will make after 8 am tomorrow.
[2017-11-30] MEDS: Omeprazole CAP* 20 MG PO SCH (20:58)
[2017-11-30] MEDS: QUEtiapine TAB* 300 MG PO SCH (20:58)
[2017-11-30] MEDS: Magnesium Hydroxide LIQ* 30 ML UDC PO PRN (23:58)
[2017-12-01] MEDS: oxyCODONE/Acetamin 5/325 MG* TAB PO PRN (00:02)
[2017-12-01] MEDS: Acetaminophen TAB* 325 MG PO PRN ×2 (06:40→12:50)
[2017-12-01 07:08] LABS: ABS Basophils 0.1 10^3/ul (0-0.2); ABS Eosinophils 0.2 10^3/ul (0-0.6); ABS Lymphocytes 1.3 10^3/ul (1.0-4.8); ABS Monocytes 0.8 10^3/ul (0-0.8); ABS Neutrophils 7.7 10^3/ul (1.5-7.7); ABS Nucleated RBC 0 10^3/ul; Eosinophil % 2.3 % (0-6); Hematocrit 38 % (42-52); Hemoglobin 13.3 g/dl (14.0-18.0); Lymphocyte % 13.2 % (25-47); Mean Corpuscular HGB Conc 35 g/dl (31-36); Mean Corpuscular Hemoglobin 29 pg (27-31); Mean Corpuscular Volume 83 fL (80-94); Mean Platelet Volume 6.7 um3 (7.4-10.4); Nucleated Red Blood Cells % 0; Platelet Count 361 10^3/ul (150-450); Red Blood Count 4.63 10^6/ul (4.00-5.40); Red Cell Distribution Width 15 % (10.5-15); White Blood Count 10.2 10^3/ul (3.5-10.8)
[2017-12-01 07:22] LABS: EGFR Non-African American 79.6 (>60)
--- NOTE | 2017-12-01 08:27 | PN ---
Progress Note - Progress Note Date of Service: 12/01/17 SOAP: Subjective: OOB resting comfortably with no complaints of pain Objective: Vital Signs Temp Pulse Resp BP Pulse Ox 98.1 F 99 18 154/70 98 12/01/17 03:25 12/01/17 07:56 12/01/17 07:56 12/01/17 07:56 12/01/17 07:56 Laboratory Last Values WBC 10.2 10^3/ul (3.5-10.8) 12/01/17 06:10 RBC 4.63 10^6/ul (4.00-5.40) 12/01/17 06:10 Hgb 13.3 g/dl (14.0-18.0) L 12/01/17 06:10 Hct 38 % (42-52) L 12/01/17 06:10 MCV 83 fL (80-94) 12/01/17 06:10 MCH 29 pg (27-31) 12/01/17 06:10 MCHC 35 g/dl (31-36) 12/01/17 06:10 RDW 15 % (10.5-15) 12/01/17 06:10 Plt Count 361 10^3/ul (150-450) 12/01/17 06:10 MPV 6.7 um3 (7.4-10.4) L 12/01/17 06:10 Neut % (Auto) 75.4 % (38-83) 12/01/17 06:10 Lymph % (Auto) 13.2 % (25-47) L 12/01/17 06:10 [place] % (Auto) 8.0 % (0-7) H 12/01/17 06:10 Eos % (Auto) 2.3 % (0-6) 12/01/17 06:10 Baso % (Auto) 1.1 % (0-2) 12/01/17 06:10 Absolute Neuts (auto) 7.7 10^3/ul (1.5-7.7) 12/01/17 06:10 Absolute Lymphs (auto) 1.3 10^3/ul (1.0-4.8) 12/01/17 06:10 Absolute Monos (auto) 0.8 10^3/ul (0-0.8) 12/01/17 06:10 Absolute Eos (auto) 0.2 10^3/ul (0-0.6) 12/01/17 06:10 Absolute Basos (auto) 0.1 10^3/ul (0-0.2) 12/01/17 06:10 Absolute Nucleated RBC 0 10^3/ul 12/01/17 06:10 Nucleated RBC % 0 12/01/17 06:10 INR (Anticoag Therapy) 1.07 (0.77-1.02) H 11/30/17 08:43 Sodium 136 mmol/L (135-145) 12/01/17 06:10 Potassium 4.3 mmol/L (3.5-5.0) 12/01/17 06:10 Chloride 102 mmol/L (101-111) 12/01/17 06:10 Carbon Dioxide 24 mmol/L (22-32) 12/01/17 06:10 Anion Gap 10 mmol/L (2-11) 12/01/17 06:10 BUN 16 mg/dL (6-24) 12/01/17 06:10 Creatinine 0.96 mg/dL (0.67-1.17) 12/01/17 06:10 Est GFR ( Amer) 96.4 (>60) 12/01/17 06:10 Est GFR (Non-Af Amer) 79.6 (>60) 12/01/17 06:10 BUN/Creatinine Ratio 16.7 (8-20) 12/01/17 06:10 Glucose 85 mg/dL (70-100) 12/01/17 06:10 Calcium 9.5 mg/dL (8.6-10.3) 12/01/17 06:10 Magnesium 2.0 mg/dL (1.9-2.7) 12/01/17 06:10 Total Bilirubin 0.30 mg/dL (0.2-1.0) 12/01/17 06:10 AST 39 U/L (13-39) 12/01/17 06:10 ALT 55 U/L (7-52) H 12/01/17 06:10 Alkaline Phosphatase 74 U/L (34-104) 12/01/17 06:10 C-Reactive Protein 117.50 mg/L (<8.01) H 11/27/17 05:11 C-React Prot High Sens 35.34 mg/L (<2.00) H 11/30/17 07:11 Total Protein 6.7 g/dL (6.4-8.9) 12/01/17 06:10 Albumin 3.4 g/dL (3.2-5.2) 12/01/17 06:10 Globulin 3.3 g/dL (2-4) 12/01/17 06:10 Albumin/Globulin Ratio 1.0 (1-3) 12/01/17 06:10 Vancomycin Trough 16.1 mcg/mL 11/30/17 07:27 Hepatitis C Antibody Nonreactive (Nonreactive) 11/26/17 05:12 incision: c/d/i PE: good capillary refill, moving fingers well with intact sensation Assessment: 62yo with left wrist infection Plan: 1) NPO 2) OR this afternoon with Dr. Fowler for I&D left wrist with ORIF carpometacarpal dislocations
[2017-12-01] MEDS: Heparin VIAL(*) 5000 UNITS/ML VIAL (FIVE THOUSAND) SUBCUT SCH ×2 (08:28→21:50)
[2017-12-01] MEDS: Benztropine TAB* 1 MG PO SCH ×2 (08:32→21:49)
[2017-12-01] MEDS: Cetirizine* 10 MG TAB PO SCH (08:32)
[2017-12-01] MEDS: Polyethylene Glycol 3350* 17 GM PACKET PO SCH ×2 (08:32→21:52)
[2017-12-01] MEDS: levETIRAcetam TAB* 500 MG PO SCH ×2 (08:32→21:50)
[2017-12-01] MEDS: Vancomycin(*) 1,250 MG in NS 0.9% 250 ML* 250 ML IVPB SCH ×2 (08:32→21:35)
[2017-12-01] MEDS: Perphenazine TAB* 2 MG PO SCH ×2 (08:32→21:51)
[2017-12-01] MEDS: Fluticasone NASAL SPRAY 50MCG* 16 gm SPRAY BTL BOTH NARES SCH ×2 (08:32→21:50)
--- NOTE | 2017-12-01 11:50 | RAD ---
HISTORY: Pain and erythema of the right upper extremity COMPARISON: None. TECHNIQUE: Multiple transverse and longitudinal ultrasound images were obtained of the veins of the right upper extremity using grayscale, color Doppler, and spectral Doppler imaging with and without compression and with augmentation. FINDINGS: VEINS: The axillary, brachial, and basilic veins are compressible throughout their course, with normal flow on color Doppler imaging and normal response to augmentation on spectral Doppler imaging. The subclavian vein exhibits appropriate augmentation and phasicity. The radial and ulnar veins are compressible. Extending from the distal humerus to distal forearm, there is echogenic thrombosis of the right cephalic vein with loss of compressibility. Evidence of adequate flow is identified in the right internal jugular and subclavian vein as well. SOFT TISSUES: Grossly normal. IMPRESSION: 1. Thrombotic occlusion of the right cephalic vein as described above. 2. No sonographic evidence of deep vein thrombosis involving the right upper extremity.
--- NOTE | 2017-12-01 14:06 | PN ---
Subjective Date of Service: 12/01/17 Interval History: Pt seen and examined. Meds and labs reviewed. Pt re-scheduled to have repeat irrigation and debridement of the left wrist and ORIF of the carpometacarpal dislocations later this afternoon instead. ROS: Complains of new swelling on RUE. Denied TOURE/dizziness, F/C, N/V, CP, SOB , increased cough, sputum production, abd pain, diarrhea, constipation, dysuria , myalgias, arthralgias, throat pain. The rest of the 14 point ROS are unremarkable. PHYSICAL EXAM: GEN APPEARANCE: Awake, not in acute distress HEENT: NC/AT, PERRLA, moist oral mucosa, (-) throat erythema NECK: Soft, supple, (-) cervical LAD, (-)JVD HEART: S1S2 WNL, RRR, No MRG CHEST: CTA, BL, GAE, No W/R/R ABD: Soft, ND/NT, NABS 4x Q EXT: No C/C/LUE, wrapped with LAMINE bandages; RUE with erythematous and slightly edematous old IV access sites SKIN: Warm to touch PSYCH: No active psychosis, hallucinations, depression, SI/HI Objective Active Medications: Acetaminophen (Tylenol Tab*) 650 mg PO Q4H PRN PRN Reason: FEVER/PAIN Last Admin: 12/01/17 12:50 Dose: 650 mg Benztropine Mesylate (Cogentin Tab*) 0.5 mg PO BID [facility] Last Admin: 12/01/17 08:32 Dose: 0.5 mg Cetirizine HCl (Zyrtec*) 10 mg PO DAILY [facility] Last Admin: 12/01/17 08:32 Dose: 10 mg Diphenhydramine HCl (Benadryl Iv*) 25 mg IV Q6H PRN PRN Reason: itching Last Admin: 11/25/17 23:34 Dose: 25 mg Docusate Sodium (Colace Cap*) 100 mg PO BID PRN PRN Reason: CONSTIPATION Fluticasone Propionate (Flonase Nasal [place] 50mcg*) 1 spray BOTH NARES BID [facility] Last Admin: 12/01/17 08:32 Dose: 1 spray Heparin Sodium (Porcine) (Heparin Vial(*)) 5,000 units SUBCUT Q12HR [facility] Last Admin: 12/01/17 08:28 Dose: Not Given Vancomycin HCl 1,250 mg/ (Sodium Chloride) 250 mls @ 166.667 mls/hr IVPB 0800, 2000 [facility] Last Admin: 12/01/17 08:32 Dose: 166.667 mls/hr Levetiracetam (Keppra Tab*) 500 mg PO BID [facility] Last Admin: 12/01/17 08:32 Dose: 500 mg Magnesium Hydroxide (Milk Of Magnesia Liq*) 30 ml PO Q6H PRN PRN Reason: constipation Last Admin: 11/30/17 23:58 Dose: 30 ml Morphine Sulfate (Morphine Vial*) 2 mg IV Q2H PRN PRN Reason: PAIN - BREAKTHROUGH Last Admin: 11/25/17 18:19 Dose: 2 mg Omeprazole (Prilosec Cap*) 20 mg PO BEDTIME [facility] Last Admin: 11/30/17 20:58 Dose: 20 mg Oxycodone/Acetaminophen (Percocet 5/325 Tab*) 2 tab PO Q4H PRN PRN Reason: PAIN - MODERATE Last Admin: 11/26/17 07:36 Dose: 2 tab Oxycodone/Acetaminophen (Percocet 5/325 Tab*) 1 tab PO Q4H PRN PRN Reason: PAIN - MILD Last Admin: 12/01/17 00:02 Dose: 1 tab Perphenazine (Trilafon Tab*) 16 mg PO BID [facility] Last Admin: 12/01/17 08:32 Dose: 16 mg Pharmacy Consult (Vancomycin Per Pharmacy*) 1 note FOLLOW UP .VANC PER PHARMACY [facility] Polyethylene Glycol/Electrolytes (Miralax*) 17 gm PO 0800,2100 [facility] Last Admin: 12/01/17 08:32 Dose: 17 gm Quetiapine Fumarate (Seroquel Tab*) 300 mg PO BEDTIME [facility] Last Admin: 11/30/17 20:58 Dose: 300 mg Quetiapine Fumarate (Seroquel Tab*) 50 mg PO Q4H PRN PRN Reason: AGITATION Vital Signs - 8 hr 12/01/17 07:56 Pulse Rate 99 Respiratory 18 Rate Blood Pressure 154/70 (mmHg) O2 Sat by Pulse 98 Oximetry Oxygen Devices in Use Now: None Result Diagrams: 12/01/17 06:10 12/01/17 06:10 Microbiology and Other Data: Microbiology 11/24/17 16:45 Gram Stain - Final Hand Left Wound Culture - Preliminary No Growth Day 1 Assess/Plan/Problems-Billing Assessment: 62 yo M with h/o schizophrenia , seizures, HTN (on no BP meds at home) s/p left hand surgery and pinning with post op infection - Patient Problems (1) Infection of left hand Current Visit: Yes Status: Acute Code(s): L08.9 - LOCAL INFECTION OF THE SKIN AND SUBCUTANEOUS TISSUE, UNSP SNOMED Code(s): 148736877 Comment: -No additional recommendations prior to planned repeat irrigation and debridement of the left wrist and ORIF of the carpometacarpal dislocations today -Had open debridement of L wrist/hand 11/25, further debridement and pinning planned for 11/29. -Dr. Koch's consultation appreciated. -Vanco day #, with trough goal of: 15-20, currently at goal (2) Superficial thrombophlebitis Current Visit: Yes Status: Acute Code(s): I80.9 - PHLEBITIS AND THROMBOPHLEBITIS OF UNSPECIFIED SITE SNOMED Code(s): 0555038 Comment: -Warm compress and keep extremity elevated -No DVT detected on doppler (3) Schizophrenia Current Visit: Yes Status: Acute Code(s): F20.9 - SCHIZOPHRENIA, UNSPECIFIED SNOMED Code(s): 34837712 Comment: -Cont outpatient meds -Compensated. PRN quetiapine dose ordered. (4) Asthma Current Visit: Yes Status: Acute Code(s): J45.909 - UNSPECIFIED ASTHMA, UNCOMPLICATED SNOMED Code(s): 574267191 Comment: -Not in exacerbation, cont home meds (5) Seizure disorder Current Visit: Yes Status: Acute Code(s): G40.909 - EPILEPSY, UNSP, NOT INTRACTABLE, WITHOUT STATUS EPILEPTICUS SNOMED Code(s): 922840177 Comment: -No recent seizures reported, cont Keppra (6) Constipation Current Visit: Yes Status: Acute Code(s): K59.00 - CONSTIPATION, UNSPECIFIED SNOMED Code(s): 63900005 Comment: -Continue PEG. Staff charted 3 BM's for 11/29. -Improved Status and Disposition: -Defer with orthopedics -Continue PT/OT -For possible D/C home? Will defer on re-eval after ORIF
[2017-12-01] MEDS ORDERED: fentaNYL* 50 MCG/ML 2 ML VIAL (100 MCG VIAL) ONE ×2 (16:02→18:17)
[2017-12-01] MEDS ORDERED: Midazolam* 1 MG/ML 2 ML VIAL (2 MG) ONE (16:02)
[2017-12-01] MEDS ORDERED: Lidocaine 2% PF * 5 ML VIAL ONE (16:03)
[2017-12-01] MEDS ORDERED: Propofol* 10 MG/ML 20 ML BTL IV PUSH ONE (16:03)
[2017-12-01] MEDS ORDERED: Sodium Citrate/Citric Acid* 15 ML UDC PO ONE (16:25)
[2017-12-01] MEDS ORDERED: Bupivacaine 0.5% SDV PF* 30ML VIAL ONE (16:51)
[2017-12-01] MEDS ORDERED: Sodium Citrate/Citric Acid* 15 ML UDC ONE (17:11)
--- NOTE | 2017-12-01 17:45 | PN ---
Progress Note - Progress Note Date of Service: 12/01/17 Note: The plan is for irrigation and debridement left wrist and open reduction with pinning of the fourth carpometacarpal fracture dislocation and the fifth carpometacarpal dislocation today.
[2017-12-01] MEDS ORDERED: HYDROmorphone INJ* 1 MG/ML CARPUJECT SYRINGE IV PRN (18:04)
[2017-12-01] MEDS ORDERED: Acetaminophen TAB* 325 MG PO PRN (18:04)
[2017-12-01] MEDS ORDERED: Ondansetron INJ* 2 MG/ML VIAL IV PRN (18:04)
[2017-12-01] MEDS ORDERED: oxyCODONE TAB* 5 MG TAB PO PRN (18:04)
[2017-12-01] MEDS ORDERED: fentaNYL* 50 MCG/ML 2 ML VIAL (100 MCG VIAL) IV PRN (18:04)
[2017-12-01] MEDS ORDERED: Naloxone* 0.4 MG/ML 1 ML VIAL IV PRN (18:04)
[2017-12-01] MEDS ORDERED: HYDROmorphone INJ* 0.5 MG/0.5 ML SYRINGE ONE ×2 (18:41→19:11)
[2017-12-01] MEDS ORDERED: Acetaminophen TAB* 325 MG ONE (20:57)
[2017-12-01] MEDS: Omeprazole CAP* 20 MG PO SCH (21:51)
[2017-12-01] MEDS: QUEtiapine TAB* 300 MG PO SCH (21:53)
[2017-12-01] MEDS: Nystatin TOP POWDER* 15 GM BTL TOPICAL SCH (22:14)
[2017-12-02] MEDS: Acetaminophen TAB* 325 MG PO PRN ×3 (07:08→17:45)
[2017-12-02 07:50] LABS: ABS Basophils 0.1 10^3/ul (0-0.2); ABS Eosinophils 0.1 10^3/ul (0-0.6); ABS Lymphocytes 0.8 10^3/ul (1.0-4.8); ABS Monocytes 1.1 10^3/ul (0-0.8); ABS Neutrophils 11.5 10^3/ul (1.5-7.7); ABS Nucleated RBC 0 10^3/ul; Eosinophil % 0.4 % (0-6); Hematocrit 36 % (42-52); Hemoglobin 12.3 g/dl (14.0-18.0); Lymphocyte % 6.2 % (25-47); Mean Corpuscular HGB Conc 34 g/dl (31-36); Mean Corpuscular Hemoglobin 28 pg (27-31); Mean Corpuscular Volume 84 fL (80-94); Mean Platelet Volume 6.5 um3 (7.4-10.4); Nucleated Red Blood Cells % 0; Platelet Count 319 10^3/ul (150-450); Red Blood Count 4.32 10^6/ul (4.00-5.40); Red Cell Distribution Width 15 % (10.5-15); White Blood Count 13.5 10^3/ul (3.5-10.8)
[2017-12-02] MEDS: Polyethylene Glycol 3350* 17 GM PACKET PO SCH ×2 (07:59→20:38)
[2017-12-02] MEDS: Perphenazine TAB* 2 MG PO SCH ×2 (07:59→20:39)
[2017-12-02 08:00] LABS: EGFR Non-African American 73.4 (>60)
[2017-12-02] MEDS: Heparin VIAL(*) 5000 UNITS/ML VIAL (FIVE THOUSAND) SUBCUT SCH ×2 (08:00→20:40)
[2017-12-02] MEDS: Benztropine TAB* 1 MG PO SCH ×2 (08:00→20:40)
[2017-12-02] MEDS: Cetirizine* 10 MG TAB PO SCH (08:01)
[2017-12-02] MEDS: levETIRAcetam TAB* 500 MG PO SCH ×2 (08:01→20:40)
[2017-12-02] MEDS: Fluticasone NASAL SPRAY 50MCG* 16 gm SPRAY BTL BOTH NARES SCH ×2 (08:02→20:39)
[2017-12-02] MEDS: Nystatin TOP POWDER* 15 GM BTL TOPICAL SCH ×3 (08:04→20:41)
--- NOTE | 2017-12-02 09:09 | PN ---
Progress Note - Progress Note Date of Service: 12/02/17 SOAP: Subjective: CC: left hand infection HPI: 62 year old man with left hand fx s/p closed reduction/fixation complicated by MRSA hardware infection. I&D here, pin removal. Denies pain, fever, or diarrhea. Objective: Vital Signs Temp 36.7 C 12/02/17 08:08 Pulse 98 12/02/17 08:08 Resp 17 12/02/17 08:08 BP 137/87 12/02/17 08:08 Pulse Ox 95 12/02/17 08:08 Intake & Output 12/01/17 12/02/17 12/02/17 18:59 06:59 18:59 Intake Total 0 2564 Balance 0 2564 Intake: IV Fluids 763 LR 750 NS 13 IVPB 301 ABX - VANCOMYCIN 301 Oral 0 1500 Other: Estimated Void Medium Medium # Voids 1 1 Gen:awake, no distress HEENT: no thrush Heart:RRR no murmur MSK: L hand casted , can move fingers Skin: no rash Laboratory Results - last 24 hr 12/01/17 12/02/17 12/02/17 20:50 07:28 07:28 WBC 13.5 H RBC 4.32 Hgb 12.3 L Hct 36 L MCV 84 MCH 28 MCHC 34 RDW 15 Plt Count 319 MPV 6.5 L Neut % (Auto) 85.1 H Lymph % (Auto) 6.2 L Dunn % (Auto) 7.8 H Eos % (Auto) 0.4 Baso % (Auto) 0.5 Absolute Neuts (auto) 11.5 H Absolute Lymphs (auto) 0.8 L Absolute Monos (auto) 1.1 H Absolute Eos (auto) 0.1 Absolute Basos (auto) 0.1 Absolute Nucleated RBC 0 Nucleated RBC % 0 Sodium 133 L Potassium 4.2 Chloride 100 L Carbon Dioxide 24 Anion Gap 9 BUN 13 Creatinine 1.03 Est GFR ( Amer) 88.8 Est GFR (Non-Af Amer) 73.4 BUN/Creatinine Ratio 12.6 Glucose 103 H POC Glucose (mg/dL) 115 H Calcium 9.0 Assessment: 1. MRSA acute osteomyelitis left wrist, associated with fixation hardware s/p I& D and hardware removal. Now pinning of 4th CMC fx/dislocation and 5th CMC dislocation. 2. Developmental delay 3.T2 diabetes mellitus Plan: 1. continue vancomycin goal tr 15-20 day with weekly cbc, cmp, crp, vanco trough. Will follow with long course PO abx. Ok for PICC.
[2017-12-02] MEDS: Vancomycin(*) 1,250 MG in NS 0.9% 250 ML* 250 ML IVPB SCH ×2 (10:07→20:39)
--- NOTE | 2017-12-02 13:44 | PN ---
Progress Note - Progress Note Date of Service: 12/02/17 SOAP: Subjective: [Pt states he is a little sore. Otherwise no complaints. Denies any chest pain, SOB, nausea or vomiting.] Objective: [General: alert and oriented MSKCAROLINEE: Dressing is c/d/i. cap refill of all exposed digits is less than 2 seconds. Able to flex and extend elbow fully. ] Vital Signs Temp 97.8 F 12/02/17 11:11 Pulse 100 12/02/17 11:11 Resp 17 12/02/17 11:11 BP 162/43 12/02/17 11:11 Pulse Ox 97 12/02/17 11:11 Intake & Output 12/01/17 12/02/17 12/02/17 18:59 06:59 18:59 Intake Total 0 2564 Balance 0 2564 Intake: IV Fluids 763 LR 750 NS 13 IVPB 301 ABX - VANCOMYCIN 301 Oral 0 1500 Other: Estimated Void Medium Medium # Voids 1 1 Assessment: [POD 1 I&D of left wrist and open reduction with pinning of the fourth carpometacarpal fracture dislocation and the fifth carpometacarpal dislocation today] Plan: [- continue current medical managment - pain medication continue - continue current anticoagulation - dressing to remain on until follow up appoint ]
[2017-12-02] MEDS: QUEtiapine TAB* 25 MG PO PRN ×2 (13:45→17:56)
[2017-12-02] MEDS ORDERED: Al Hydrox/Mg Hydrox/Simet LIQ* 30 ML UDC PO PRN (14:12)
--- NOTE | 2017-12-02 14:38 | PN ---
Subjective Date of Service: 12/02/17 Interval History: Pt seen and examined. Meds and labs reviewed. POD# 1 I&D of left wrist and open reduction with pinning of the fourth carpometacarpal fracture dislocation and the fifth carpometacarpal dislocation ROS: Denied TOURE/dizziness, F/C, N/V, CP, SOB, increased cough, sputum production , abd pain, diarrhea, constipation, dysuria, myalgias, arthralgias, throat pain , and new skin lesions. The rest of the 14 point ROS are unremarkable. PHYSICAL EXAM: GEN APPEARANCE: Awake, not in acute distress HEENT: NC/AT, PERRLA, moist oral mucosa, (-) throat erythema NECK: Soft, supple, (-) cervical LAD, (-)JVD HEART: S1S2 WNL, RRR, No MRG CHEST: CTA, BL, GAE, No W/R/R ABD: Soft, ND/NT, NABS 4x Q EXT: No C/C/LUE, wrapped with LAMINE bandages; RUE with erythematous and slightly edematous old IV access sites SKIN: Warm to touch PSYCH: No active psychosis, hallucinations, depression, SI/HI Objective Active Medications: Acetaminophen (Tylenol Tab*) 650 mg PO Q4H PRN PRN Reason: FEVER/PAIN Last Admin: 12/02/17 12:30 Dose: 650 mg Al Hydrox/Mg Hydrox/Simethicone (Maalox Plus*) 30 ml PO Q6H PRN PRN Reason: DYSPEPSIA Benztropine Mesylate (Cogentin Tab*) 0.5 mg PO BID [facility] Last Admin: 12/02/17 08:00 Dose: 0.5 mg Cetirizine HCl (Zyrtec*) 10 mg PO DAILY [facility] Last Admin: 12/02/17 08:01 Dose: 10 mg Diphenhydramine HCl (Benadryl Iv*) 25 mg IV Q6H PRN PRN Reason: itching Last Admin: 11/25/17 23:34 Dose: 25 mg Docusate Sodium (Colace Cap*) 100 mg PO BID PRN PRN Reason: CONSTIPATION Fluticasone Propionate (Flonase Nasal [place] 50mcg*) 1 spray BOTH NARES BID [facility] Last Admin: 12/02/17 08:02 Dose: 1 spray Heparin Sodium (Porcine) (Heparin Vial(*)) 5,000 units SUBCUT Q12HR [facility] Last Admin: 12/02/17 08:00 Dose: 5,000 units Vancomycin HCl 1,250 mg/ (Sodium Chloride) 250 mls @ 166.667 mls/hr IVPB 0800, 2000 [facility] Last Admin: 12/02/17 10:07 Dose: 166.667 mls/hr Levetiracetam (Keppra Tab*) 500 mg PO BID [facility] Last Admin: 12/02/17 08:01 Dose: 500 mg Magnesium Hydroxide (Milk Of Magnesia Liq*) 30 ml PO Q6H PRN PRN Reason: constipation Last Admin: 11/30/17 23:58 Dose: 30 ml Nystatin (Nystatin Top Powder*) 1 applic TOPICAL TID [facility] Last Admin: 12/02/17 08:04 Dose: 1 applic Omeprazole (Prilosec Cap*) 40 mg PO BEDTIME [facility] Perphenazine (Trilafon Tab*) 16 mg PO BID [facility] Last Admin: 12/02/17 07:59 Dose: 16 mg Pharmacy Consult (Vancomycin Per Pharmacy*) 1 note FOLLOW UP .VANC PER PHARMACY [facility] Pharmacy Profile Note (Vancomycin Trough Check) 1 note FOLLOW UP ONCE ONE Stop: 12/04/17 07:31 Polyethylene Glycol/Electrolytes (Miralax*) 17 gm PO 0800,2100 [facility] Last Admin: 12/02/17 07:59 Dose: 17 gm Quetiapine Fumarate (Seroquel Tab*) 300 mg PO BEDTIME [facility] Last Admin: 12/01/17 21:53 Dose: 300 mg Quetiapine Fumarate (Seroquel Tab*) 50 mg PO Q4H PRN PRN Reason: AGITATION Last Admin: 12/02/17 13:45 Dose: 50 mg Vital Signs - 8 hr 12/02/17 12/02/17 12/02/17 08:04 08:08 11:11 Temperature 98.1 F 97.8 F Pulse Rate 98 100 Respiratory 17 17 17 Rate Blood Pressure 137/87 162/43 (mmHg) O2 Sat by Pulse 97 95 97 Oximetry 12/02/17 13:50 Temperature 97.6 F Pulse Rate Respiratory Rate Blood Pressure (mmHg) O2 Sat by Pulse Oximetry Oxygen Devices in Use Now: None Result Diagrams: 12/02/17 07:28 12/02/17 07:28 Microbiology and Other Data: Microbiology 11/24/17 16:45 Gram Stain - Final Hand Left Wound Culture - Preliminary No Growth Day 1 Assess/Plan/Problems-Billing Assessment: 62 yo M with h/o schizophrenia , seizures, HTN (on no BP meds at home) s/p left hand surgery and pinning with post op infection - Patient Problems (1) Infection of left hand Current Visit: Yes Status: Acute Code(s): L08.9 - LOCAL INFECTION OF THE SKIN AND SUBCUTANEOUS TISSUE, UNSP SNOMED Code(s): 536129468 Comment: -No O/n issues post I&D of left wrist and open reduction with pinning of the fourth carpometacarpal fracture dislocation and the fifth carpometacarpal dislocation -Had open debridement of L wrist/hand 11/25 -Dr. Koch's consultation appreciated. -Vanco day #, with trough goal of: 15-20, currently at goal -PICC line ordered (2) Superficial thrombophlebitis Current Visit: Yes Status: Acute Code(s): I80.9 - PHLEBITIS AND THROMBOPHLEBITIS OF UNSPECIFIED SITE SNOMED Code(s): 3338330 Comment: -Warm compress and keep extremity elevated -No DVT detected on doppler (3) Hypertension, uncontrolled Current Visit: Yes Status: Acute Code(s): I10 - ESSENTIAL (PRIMARY) HYPERTENSION SNOMED Code(s): 96803885 Comment: -D/C IVFs -Pt denied any significant post-op pain -If still elevated by AM, consider starting anti-HTN then (4) Schizophrenia Current Visit: Yes Status: Acute Code(s): F20.9 - SCHIZOPHRENIA, UNSPECIFIED SNOMED Code(s): 13599008 Comment: -Cont outpatient meds -Compensated. PRN quetiapine dose ordered. (5) Asthma Current Visit: Yes Status: Acute Code(s): J45.909 - UNSPECIFIED ASTHMA, UNCOMPLICATED SNOMED Code(s): 744679893 Comment: -Not in exacerbation, cont home meds (6) Seizure disorder Current Visit: Yes Status: Acute Code(s): G40.909 - EPILEPSY, UNSP, NOT INTRACTABLE, WITHOUT STATUS EPILEPTICUS SNOMED Code(s): 260491453 Comment: -No recent seizures reported, cont Keppra (7) Constipation Current Visit: Yes Status: Acute Code(s): K59.00 - CONSTIPATION, UNSPECIFIED SNOMED Code(s): 09906393 Comment: -Continue PEG. Staff charted 3 BM's for 11/29. -Improved (8) DVT prophylaxis Current Visit: Yes Status: Acute Code(s): OSC4092 - SNOMED Code(s): 278296538 Comment: -On Heparin SQq12 Status and Disposition: -Defer with orthopedics -Continue PT/OT -For possible D/C home? Will defer on re-eval after ORIF
--- NOTE | 2017-12-02 19:06 | PN ---
Progress Note - Progress Note Date of Service: 12/02/17 Note: Case reviewed with ALVIN Lei who rounded on the patient today. Mr. Bryant is doing well. His pain is controlled. He has been afebrile and his vitals have been stable although he has been slightly tachycardic. His labs are stable. We will plan to continue IV vancomycin based off his prior culture results from [facility] and Dr. Koch's recommendation. A PICC line is being arranged. I will see the him tomorrow.
[2017-12-02] MEDS: Omeprazole CAP* 20 MG PO SCH (20:40)
[2017-12-02] MEDS: QUEtiapine TAB* 300 MG PO SCH (20:40)
--- NOTE | 2017-12-03 06:25 | OP ---
DATE OF OPERATION: 12/01/17 - ROOM #336 DATE OF : 57 SURGEON: Karan Fowler MD ASSISTANTS: 1. ALVIN Christopher 2. ALVIN Lei ANESTHESIOLOGIST: Mae De La Cruz MD ANESTHESIA: General. PRE-OP DIAGNOSES: 1. Subacute to almost chronic left fifth carpometacarpal volar ulnar dislocation. 2. Fourth carpometacarpal intraarticular fracture. 3. The patient is status post pin tract infection after failed prior attempt at pinning. He has been on IV antibiotics and had formal I and D. POST-OP DIAGNOSES: 1. Subacute to almost chronic left fifth carpometacarpal volar ulnar dislocation. 2. Fourth carpometacarpal intraarticular fracture. 3. The patient is status post pin tract infection after failed prior attempt at pinning. He has been on IV antibiotics and had formal I and D. OPERATIVE PROCEDURE: 1. Repeat irrigation and debridement of left hand pin tract infection and carpometacarpal and midcarpal probable septic arthritis. 2. Open reduction and internal fixation left fourth metacarpal base intraarticular fracture dislocation. 3. Open reduction and internal fixation left fifth carpometacarpal joint dislocation. INDICATIONS: Clovis is 62. He does have some mental disability. He was in a [facility] in [place]. He had a dislocation of fifth CMC joint together with a fourth metacarpal base injury. He underwent a reduction pinning of this but it did not hold and he showed up at his postoperative appointment with pins completely dislocated and the fixation having fallen apart. At that point, he was referred to me. The pins got infected and he was taken in another facility for a washout of pin tracts and removal of the pins. He was kept 2 days on IV antibiotics and discharged home with Cipro and Flagyl and then referred to my office, where he was noted at his clinic appointment to be having seropurulent drainage from the pin tract. So, I admitted into the hospital. At this point, the dislocation is already 3 weeks old. He does have some mental disability; I had explained to him and the aides with him the seriousness of the situation that we needed to get ahead of any potential infection prior to making an attempt at reducing the joint as it will certainly require instrumentation in the form of pins or some external fixator to hold it out to length. The patient had very limited use of the small finger, really was not moving at all. The metacarpal bone was sitting about a centimeter or a centimeter and a half short adjacent to the triquetrum and volar and ulnar to the hamate. I told them that it would be very difficult to get it reduced given the chronicity and especially because of inability to get to it right away due to the fact needing to get ahead of the infection. They understood the seriousness of the injury and situation. Cl[place]is and I have discussed a few times possibility of an amputation to restore optimal function to the hand. I told him I thought that we should try to get the joint reduced if at all possible and even if we need to come back and do a fourth and fifth carpometacarpal fusion, if he develops arthritis at a later date, at least if we get him out to length in the appropriate location, we have some attempt at salvaging the function of the ring and small fingers. Mr. Bryant does not have any available family. I have spoke with his [facility] and he does sign all of his own consent forms and makes all of his medical decisions and always has. He agreed to proceed. ESTIMATED BLOOD LOSS: 10 mL. COMPLICATIONS: The proximal fifth metacarpal shaft did fracture during the reduction. FINDINGS: See above and below. DESCRIPTION OF PROCEDURE: Mr. Bryant was seen in the preoperative holding area. The correct side, site, and procedure were identified. We came back to the operating room, the prior sutures were removed and the arm was prepped and draped in the usual fashion and time-out was performed. I began by exsanguinated the arm with an Esmarch and the tourniquet was inflated to 250 mmHg. The patient's prior incision from his prior irrigation and debridement was reopened. The interval between the extensor tendons to the ring and small finger was utilized to obtain access to the carpometacarpal and carpal joints. The fifth metacarpal was seen volar ulnar to the hamate and adjacent to the triquetrum. I had previously tried to get this back out to length and simply was not possible, 6 days ago when I did the washout. Today, everything looked very clean. There was no murky fluid. There was some hematoma and blood clot, but everything looked completely clean. The bone and the joint surfaces were looking much better. Everything was irrigated out and all of the blood clot was removed with the curette and with the suction and the rongeur. Once I had nothing but clean viable tissue, I went ahead and analyzed the situation. The portion of the joint surface for the fourth CMC joint was sitting ulnar in the facet for the fifth metacarpal base. I went ahead and used a gentle pick to reduce this back into place and a small clamp to hold in place. I placed one 0.045 K-wire from dorsal to palmar to bring the posterior metacarpal surface back to the articular pieces. This did hold that quite nicely. There was a palmar piece of the articular surface that simply could not be mobilized and this piece was therefore trimmed back and excised. After I had the fourth CMC joint reduced back in the appropriate location and cleared the articular surface for the fifth metacarpal base, I turned my attention to the reduction of the fifth metacarpal. From the last surgery, I knew that it was not going to be easy to get it reduced, I had tried and was not able to get anywhere near out to length. I, therefore, had the kapturem bring in their small distractor. I predrilled a hole in the fifth metacarpal shaft with a 1.5 drill bit and placed a 0.020 threaded K-wire. I then made an 1-cm incision over the dorsal ulna, distal ulna, and spread the tissue off down to bone. I then under direct visualization, made a 1.5-mm drill hole with the drill bit and placed a second 0.020 K-wire in the distal ulna. These were set so that the wires were pointing towards each other, so that when I brought them parallel to each other, I corrected some of the deformity in the sagittal plane. At this point, the distractor was placed and I very slowly begin to distract. I was able to get to about 3 mm shy out to length and the metacarpal base was still volar to the hamate. At this point, one of my fifth metacarpal wires was becoming loose and so I placed a second metacarpal wire a little bit more proximal, the part of the bone had extensor cortex. I then reconnected my distractor and I was able to distract it almost out to length, it was just perched on the edge of the distal hamate articular surface. I could get it no further. I had relaxed the distractor and then redistracted multiple times in an effort to stretch out the soft tissues and simply I could not get it back out to length. I had released all the soft tissue around the base of the metacarpal including the ECU tendon in an effort to get it back out to length and it simply would not go back out to length. At this point, I tried to place a [place] elevator between the base of the fifth metacarpal and the hamate to act as a slide of sorts in hopes that I could get it free of its perched position and that the fifth MC joint would reduce. I could get it close reduce. I tried to apply a clamp and my hand just a little bit to see if I could gain just another millimeter of length and at that point, the proximal fifth metacarpal shaft fractured due to the tension on the bone. However, it was very fortunate that the distractor held the distal aspect of the fifth metacarpal out to length and the pin was stable. I therefore was able to, while it was held out in length, take a 0.062 K-wire and drive it across the metacarpal head from ulnar to radial all the way through to the second metacarpal head. I wanted to get as many cortices as possible as there was going to be tremendous amount of tension on this wire once I let off the distractor and I wanted to give it every chance to hold. Therefore, I then took a second 0.062 K-wire and placed it just proximal and parallel to the first. This time I stopped at the third metacarpal. At this point, I thought I had the distal aspect of the metacarpal sufficiently held out to length with those 2 K-wires, at least I hope they did. I very gently let off the distractor and indeed did hold the distal portion of the bone out to length. Now that the proximal shaft was fractured, I did take my [id number] clamp and I could very gently rotate the large portion of the articular surface , so that it came out to back on top of the hamate. It was not perfect but it was out to length and pretty close. The bone there looked pretty healthy and so I decided that I wanted to try to hold that out to length on the hamate in the appropriate location and so, I took a couple of K-wires and drove them through that articular piece into the adjacent metacarpal shaft. With a couple of wires, I thought it was pretty stable. I had already removed my distractor and the pins. There was so much tension on the 2.0-mm distractor pins and my attempt to get it back out to length that it actually bent both the 2.0-mm pins and the sheaths that the 2.0-pins go through about 30 degrees on both the distal and proximal tendon sheath. But I was able to clip the wires and get the distractor removed. The metacarpal shaft pieces had broken into few different pieces but everything in regards to length, the alignment, rotation was all looking very good; so I just left it as is. The first wire that I had put in did have the tip of the threaded portion that had broken off and so I had to get that out. I was able to get that out. At this point, we were out to length. The articular portions were back on top of the hamate. The fixation with the pins was holding very nicely and the appropriate length alignment and rotation was set, so I thought really we could do no better than that. I went ahead and took a 4-0 Prolene suture and closed the periosteal and capsular layer so there was a nice soft tissue envelop covering the bone. The skin was closed with 4-0 nylon suture. I decided given his history of pin tract infection, I thought the best thing to do would be to bury the pins and so I went ahead and clipped them below the level of the skin and let then retract under the skin. The area was infiltrated with Marcaine. The wounds were dressed with Xeroform, 4x4s, sterile Webril, and a splint was applied. The short-arm splint was applied incorporating the index through the small finger and wrapping around the ulnar side of the hand so as to protect areas where the pins are at to prevent sensitivity and pain. The tourniquet was deflated during the splint placement. All 5 fingers pinked up immediately. The clinical alignment was very good. The patient was then woken up and taken to the recovery room in stable condition. POSTOPERATIVE PLAN: Mr. Bryant is going to stay and get antibiotics. This will be in the form of IV vancomycin given his prior culture results at [facility]. All the cultures here were negative. We will keep a close eye on the wound for any signs of infection or recurrent infections around the pins. We will follow up with repeat x-rays shortly to make sure the alignment is holding. Certainly if the alignment does not hold, then we just have to pull the pins. My hope is that the alignment will be maintained and he will heal the fifth metacarpal fracture and then out to length, and we can recommend a therapy and restore some motion and function to that small finger, we may be able to come back if it becomes arthritic and do a fourth and fifth CMC fusion, which is actually fairly well tolerated. But for now, he is going to continue antibiotics and we will try to get this healed out to length. Certainly, he has a fairly long road ahead of him and possibility of an amputation is not completely precluded but I am optimistic that if we can get this healed up and the fracture heals, we will have options to preserve these and function of the hand. [id number]/CPS #: [id number] DEVANTE
[2017-12-03 07:07] LABS: Hematocrit 38 % (42-52); Hemoglobin 12.8 g/dl (14.0-18.0); Mean Corpuscular HGB Conc 34 g/dl (31-36); Mean Corpuscular Hemoglobin 28 pg (27-31); Mean Corpuscular Volume 84 fL (80-94); Mean Platelet Volume 6.5 um3 (7.4-10.4); Platelet Count 307 10^3/ul (150-450); Red Cell Distribution Width 15 % (10.5-15)
[2017-12-03] MEDS: Polyethylene Glycol 3350* 17 GM PACKET PO SCH ×2 (07:08→20:01)
[2017-12-03] MEDS: Vancomycin(*) 1,250 MG in NS 0.9% 250 ML* 250 ML IVPB SCH ×2 (07:09→20:08)
[2017-12-03 07:23] LABS: EGFR Non-African American 80.6 (>60)
--- NOTE | 2017-12-03 08:01 | PN ---
Progress Note - Progress Note Date of Service: 12/03/17 SOAP: Subjective: pt OOB ambulating with complaints of mild pain left wrist; denies f/s/c Objective: Vital Signs Temp Pulse Resp BP Pulse Ox 98.3 F 90 24 146/59 98 12/02/17 22:51 12/02/17 22:51 12/02/17 22:51 12/02/17 22:51 12/02/17 22:51 Laboratory Last Values WBC 9.0 10^3/ul (3.5-10.8) 12/03/17 06:30 RBC 4.50 10^6/ul (4.00-5.40) 12/03/17 06:30 Hgb 12.8 g/dl (14.0-18.0) L 12/03/17 06:30 Hct 38 % (42-52) L 12/03/17 06:30 MCV 84 fL (80-94) 12/03/17 06:30 MCH 28 pg (27-31) 12/03/17 06:30 MCHC 34 g/dl (31-36) 12/03/17 06:30 RDW 15 % (10.5-15) 12/03/17 06:30 Plt Count 307 10^3/ul (150-450) 12/03/17 06:30 MPV 6.5 um3 (7.4-10.4) L 12/03/17 06:30 Neut % (Auto) 85.1 % (38-83) H 12/02/17 07:28 Lymph % (Auto) 6.2 % (25-47) L 12/02/17 07:28 Dickens % (Auto) 7.8 % (0-7) H 12/02/17 07:28 Eos % (Auto) 0.4 % (0-6) 12/02/17 07:28 Baso % (Auto) 0.5 % (0-2) 12/02/17 07:28 Absolute Neuts (auto) 11.5 10^3/ul (1.5-7.7) H 12/02/17 07:28 Absolute Lymphs (auto) 0.8 10^3/ul (1.0-4.8) L 12/02/17 07:28 Absolute Monos (auto) 1.1 10^3/ul (0-0.8) H 12/02/17 07:28 Absolute Eos (auto) 0.1 10^3/ul (0-0.6) 12/02/17 07:28 Absolute Basos (auto) 0.1 10^3/ul (0-0.2) 12/02/17 07:28 Absolute Nucleated RBC 0 10^3/ul 12/02/17 07:28 Nucleated RBC % 0 12/02/17 07:28 INR (Anticoag Therapy) 1.07 (0.77-1.02) H 11/30/17 08:43 Sodium 137 mmol/L (135-145) 12/03/17 06:30 Potassium 4.4 mmol/L (3.5-5.0) 12/03/17 06:30 Chloride 103 mmol/L (101-111) 12/03/17 06:30 Carbon Dioxide 27 mmol/L (22-32) 12/03/17 06:30 Anion Gap 7 mmol/L (2-11) 12/03/17 06:30 BUN 13 mg/dL (6-24) 12/03/17 06:30 Creatinine 0.95 mg/dL (0.67-1.17) 12/03/17 06:30 Est GFR ( Amer) 97.5 (>60) 12/03/17 06:30 Est GFR (Non-Af Amer) 80.6 (>60) 12/03/17 06:30 BUN/Creatinine Ratio 13.7 (8-20) 12/03/17 06:30 Glucose 96 mg/dL (70-100) 12/03/17 06:30 POC Glucose (mg/dL) 115 mg/dL (70-100) H 12/01/17 20:50 Lactic Acid 1.5 mmol/L (0.5-2.0) 12/02/17 21:11 Calcium 9.3 mg/dL (8.6-10.3) 12/03/17 06:30 Phosphorus 3.4 mg/dL (2.5-5.0) 12/03/17 06:30 Magnesium 2.0 mg/dL (1.9-2.7) 12/03/17 06:30 Total Bilirubin 0.30 mg/dL (0.2-1.0) 12/01/17 06:10 AST 39 U/L (13-39) 12/01/17 06:10 ALT 55 U/L (7-52) H 12/01/17 06:10 Alkaline Phosphatase 74 U/L (34-104) 12/01/17 06:10 C-Reactive Protein 117.50 mg/L (<8.01) H 11/27/17 05:11 C-React Prot High Sens 35.34 mg/L (<2.00) H 11/30/17 07:11 Total Protein 6.7 g/dL (6.4-8.9) 12/01/17 06:10 Albumin 3.4 g/dL (3.2-5.2) 12/01/17 06:10 Globulin 3.3 g/dL (2-4) 12/01/17 06:10 Albumin/Globulin Ratio 1.0 (1-3) 12/01/17 06:10 Vancomycin Trough 16.1 mcg/mL 11/30/17 07:27 Hepatitis C Antibody Nonreactive (Nonreactive) 11/26/17 05:12 incision: c/d/i PE: able to move fingers, intact sensation; splint intact Assessment: s/p I&d left wrist Plan: 1) continue IV Vanco 2) continue current pain regimen 3) Abx per ID; awaiting PICC line
[2017-12-03] MEDS: Cetirizine* 10 MG TAB PO SCH (08:20)
[2017-12-03] MEDS: Fluticasone NASAL SPRAY 50MCG* 16 gm SPRAY BTL BOTH NARES SCH ×2 (08:20→20:07)
[2017-12-03] MEDS: levETIRAcetam TAB* 500 MG PO SCH ×2 (08:20→20:05)
[2017-12-03] MEDS: Perphenazine TAB* 2 MG PO SCH ×2 (08:20→20:06)
[2017-12-03] MEDS: Acetaminophen TAB* 325 MG PO PRN ×4 (08:21→20:05)
[2017-12-03] MEDS: Heparin VIAL(*) 5000 UNITS/ML VIAL (FIVE THOUSAND) SUBCUT SCH ×2 (08:22→20:11)
[2017-12-03] MEDS: Benztropine TAB* 1 MG PO SCH ×2 (08:22→20:03)
--- NOTE | 2017-12-03 10:51 | PN ---
Progress Note - Progress Note Date of Service: 12/03/17 SOAP: Subjective: CC: left hand infection HPI: 62 year old man with left hand fx s/p closed reduction/fixation complicated by MRSA hardware infection. I&D here, pin removal. Denies pain, fever, or diarrhea. Wrist feeling ok. Objective: Vital Signs Temp 36.9 C 12/03/17 08:33 Pulse 91 12/03/17 08:33 Resp 17 12/03/17 08:33 BP 146/73 12/03/17 08:33 Pulse Ox 94 12/03/17 08:33 Intake & Output 12/02/17 12/03/17 12/03/17 18:59 06:59 18:59 Intake Total 700 1150 Balance 700 1150 Intake: IV Fluids 250 ABX - VANCOMYCIN 250 Oral 700 900 Other: Estimated Void Medium Medium # Bowel Movements 0 # Voids 1 1 Gen:awake, no distress HEENT: no thrush MSK: L hand casted , can move fingers Skin: no rash Laboratory Results - last 24 hr 12/02/17 12/03/17 12/03/17 21:11 06:30 06:30 WBC 9.0 RBC 4.50 Hgb 12.8 L Hct 38 L MCV 84 MCH 28 MCHC 34 RDW 15 Plt Count 307 MPV 6.5 L Sodium 137 Potassium 4.4 Chloride 103 Carbon Dioxide 27 Anion Gap 7 BUN 13 Creatinine 0.95 Est GFR ( Amer) 97.5 Est GFR (Non-Af Amer) 80.6 BUN/Creatinine Ratio 13.7 Glucose 96 Lactic Acid 1.5 Calcium 9.3 Phosphorus 3.4 Magnesium 2.0 Assessment: 1. MRSA acute osteomyelitis left wrist, associated with fixation hardware s/p I& D and hardware removal. Now pinning of 4th CMC fx/dislocation and 5th CMC dislocation. 2. Developmental delay 3.T2 diabetes mellitus Plan: 1. continue vancomycin goal tr 15-20 day with weekly cbc, cmp, crp, vanco trough. Will follow with long course PO abx. PICC pending.
[2017-12-03] MEDS: QUEtiapine TAB* 25 MG PO PRN ×2 (12:20→17:33)
[2017-12-03] MEDS: Nystatin TOP POWDER* 15 GM BTL TOPICAL SCH ×3 (12:22→20:12)
--- NOTE | 2017-12-03 14:00 | PN ---
Subjective Date of Service: 12/03/17 Interval History: Pt seen and examined. Meds and labs reviewed. ROS: Denied TOURE/dizziness, F/C, N/V, CP, SOB, increased cough, sputum production , abd pain, diarrhea, constipation, dysuria, myalgias, arthralgias, throat pain , and new skin lesions. The rest of the 14 point ROS are unremarkable. PHYSICAL EXAM: GEN APPEARANCE: Awake, not in acute distress HEENT: NC/AT, PERRLA, moist oral mucosa, (-) throat erythema NECK: Soft, supple, (-) cervical LAD, (-)JVD HEART: S1S2 WNL, RRR, No MRG CHEST: CTA, BL, GAE, No W/R/R ABD: Soft, ND/NT, NABS 4x Q EXT: No C/C/LUE, wrapped with LAMINE bandages; RUE with erythematous and slightly edematous old IV access sites SKIN: Warm to touch PSYCH: No active psychosis, hallucinations, depression, SI/HI Objective Active Medications: Acetaminophen (Tylenol Tab*) 650 mg PO Q4H PRN PRN Reason: FEVER/PAIN Last Admin: 12/03/17 12:20 Dose: 650 mg Al Hydrox/Mg Hydrox/Simethicone (Maalox Plus*) 30 ml PO Q6H PRN PRN Reason: DYSPEPSIA Benztropine Mesylate (Cogentin Tab*) 0.5 mg PO BID [facility] Last Admin: 12/03/17 08:22 Dose: 0.5 mg Cetirizine HCl (Zyrtec*) 10 mg PO DAILY [facility] Last Admin: 12/03/17 08:20 Dose: 10 mg Diphenhydramine HCl (Benadryl Iv*) 25 mg IV Q6H PRN PRN Reason: itching Last Admin: 11/25/17 23:34 Dose: 25 mg Docusate Sodium (Colace Cap*) 100 mg PO BID PRN PRN Reason: CONSTIPATION Enalapril Maleate (Vasotec Tab*) 5 mg PO DAILY [facility] Fluticasone Propionate (Flonase Nasal Val[place] 50mcg*) 1 spray BOTH NARES BID [facility] Last Admin: 12/03/17 08:20 Dose: 1 spray Heparin Sodium (Porcine) (Heparin Vial(*)) 5,000 units SUBCUT Q12HR [facility] Last Admin: 12/03/17 08:22 Dose: 5,000 units Vancomycin HCl 1,250 mg/ (Sodium Chloride) 250 mls @ 166.667 mls/hr IVPB 0800, 1999 [facility] Last Admin: 12/03/17 07:09 Dose: 166.667 mls/hr Levetiracetam (Keppra Tab*) 500 mg PO BID [facility] Last Admin: 12/03/17 08:20 Dose: 500 mg Magnesium Hydroxide (Milk Of Magnesia Liq*) 30 ml PO Q6H PRN PRN Reason: constipation Last Admin: 11/30/17 23:58 Dose: 30 ml Nystatin (Nystatin Top Powder*) 1 applic TOPICAL TID [facility] Last Admin: 12/03/17 12:22 Dose: Not Given Omeprazole (Prilosec Cap*) 40 mg PO BEDTIME [facility] Last Admin: 12/02/17 20:40 Dose: 40 mg Perphenazine (Trilafon Tab*) 16 mg PO BID [facility] Last Admin: 12/03/17 08:20 Dose: 16 mg Pharmacy Consult (Vancomycin Per Pharmacy*) 1 note FOLLOW UP .VANC PER PHARMACY [facility] Pharmacy Profile Note (Vancomycin Trough Check) 1 note FOLLOW UP ONCE ONE Stop: 12/04/17 07:31 Polyethylene Glycol/Electrolytes (Miralax*) 17 gm PO 0800,2100 [facility] Last Admin: 12/03/17 07:08 Dose: 17 gm Quetiapine Fumarate (Seroquel Tab*) 300 mg PO BEDTIME [facility] Last Admin: 12/02/17 20:40 Dose: 300 mg Quetiapine Fumarate (Seroquel Tab*) 50 mg PO Q4H PRN PRN Reason: AGITATION Last Admin: 12/03/17 12:20 Dose: 50 mg Vital Signs - 8 hr 12/03/17 12/03/17 08:00 08:33 Temperature 98.4 F Pulse Rate 91 Respiratory 20 17 Rate Blood Pressure 146/73 (mmHg) O2 Sat by Pulse 94 94 Oximetry Oxygen Devices in Use Now: None Result Diagrams: 12/03/17 06:30 12/03/17 06:30 Microbiology and Other Data: Microbiology 11/24/17 16:45 Gram Stain - Final Hand Left Wound Culture - Preliminary No Growth Day 1 Assess/Plan/Problems-Billing Assessment: 62 yo M with h/o schizophrenia , seizures, HTN (on no BP meds at home) s/p left hand surgery and pinning with post op infection - Patient Problems (1) Infection of left hand Current Visit: Yes Status: Acute Code(s): L08.9 - LOCAL INFECTION OF THE SKIN AND SUBCUTANEOUS TISSUE, UNSP SNOMED Code(s): 746547559 Comment: -S/P I&D of left wrist and open reduction with pinning of the fourth carpometacarpal fracture dislocation and the fifth carpometacarpal dislocation -Had open debridement of L wrist/hand 11/25 -Dr. Koch's consultation appreciated. -Vanco day #, with trough goal of: 15-20, currently at goal -PICC line ordered and currently pending -On D/C: weekly cbc, cmp, crp, vanco trough. Will follow with long course PO abx. (2) Hypertension, uncontrolled Current Visit: Yes Status: Acute Code(s): I10 - ESSENTIAL (PRIMARY) HYPERTENSION SNOMED Code(s): 30682101 Comment: -Despite discontinuation of IVF, pt still mildly hypertensive, thus, will place pt on low dose Enalapril -Pt denied any significant post-op pain (3) Superficial thrombophlebitis Current Visit: Yes Status: Acute Code(s): I80.9 - PHLEBITIS AND THROMBOPHLEBITIS OF UNSPECIFIED SITE SNOMED Code(s): 2917670 Comment: -Warm compress and keep extremity elevated -No DVT detected on doppler (4) Schizophrenia Current Visit: Yes Status: Acute Code(s): F20.9 - SCHIZOPHRENIA, UNSPECIFIED SNOMED Code(s): 27049632 Comment: -Cont outpatient meds -Compensated. PRN quetiapine dose ordered. (5) Asthma Current Visit: Yes Status: Acute Code(s): J45.909 - UNSPECIFIED ASTHMA, UNCOMPLICATED SNOMED Code(s): 600405942 Comment: -Not in exacerbation, cont home meds (6) Seizure disorder Current Visit: Yes Status: Acute Code(s): G40.909 - EPILEPSY, UNSP, NOT INTRACTABLE, WITHOUT STATUS EPILEPTICUS SNOMED Code(s): 994515169 Comment: -No recent seizures reported, cont Keppra (7) Constipation Current Visit: Yes Status: Acute Code(s): K59.00 - CONSTIPATION, UNSPECIFIED SNOMED Code(s): 50963602 Comment: -Continue PEG. Staff charted 3 BM's for 11/29. -Improved (8) DVT prophylaxis Current Visit: Yes Status: Acute Code(s): LYI8561 - SNOMED Code(s): 354136095 Comment: -On Heparin SQq12 Status and Disposition: -Defer with orthopedics -D/C to [facility] in AM
[2017-12-03] MEDS: Enalapril TAB* 5 MG PO SCH (15:30)
[2017-12-03] MEDS: QUEtiapine TAB* 300 MG PO SCH (20:02)
[2017-12-03] MEDS: Omeprazole CAP* 20 MG PO SCH (20:03)
--- NOTE | 2017-12-03 21:22 | PN ---
Progress Note - Progress Note Date of Service: 12/03/17 Note: I met with Mr. Bryant this evening. We discussed his short term and potential correction care. He's doing well. He says he has minimal pain in the left hand. His vitals have been stable and his WBC is down to 9.0. For now, continue IV vancomycin and we'll recheck the hand with repeat xrays in a week or two depending on his discharge and where he is located.
[2017-12-04] MEDS: Acetaminophen TAB* 325 MG PO PRN ×3 (01:15→13:25)
[2017-12-04] MEDS ORDERED: Vancomycin Trough Check NOTE FOLLOW UP ONE (07:30)
[2017-12-04 08:14] LABS: EGFR Non-African American 76.9 (>60)
[2017-12-04 08:19] LABS: Vancomycin Trough 15.7 mcg/mL
[2017-12-04] MEDS: Vancomycin(*) 1,250 MG in NS 0.9% 250 ML* 250 ML IVPB SCH (08:44)
[2017-12-04] MEDS: QUEtiapine TAB* 25 MG PO PRN ×2 (08:52→13:26)
[2017-12-04] MEDS: Fluticasone NASAL SPRAY 50MCG* 16 gm SPRAY BTL BOTH NARES SCH (08:52)
[2017-12-04] MEDS: Perphenazine TAB* 2 MG PO SCH (08:53)
[2017-12-04] MEDS: Benztropine TAB* 1 MG PO SCH (08:53)
[2017-12-04] MEDS: levETIRAcetam TAB* 500 MG PO SCH (08:53)
[2017-12-04] MEDS: Enalapril TAB* 5 MG PO SCH (08:53)
[2017-12-04] MEDS: Cetirizine* 10 MG TAB PO SCH (08:53)
[2017-12-04] MEDS: Heparin VIAL(*) 5000 UNITS/ML VIAL (FIVE THOUSAND) SUBCUT SCH (08:54)
[2017-12-04] MEDS: Polyethylene Glycol 3350* 17 GM PACKET PO SCH (08:54)
--- NOTE | 2017-12-04 08:55 | PN ---
Progress Note - Progress Note Date of Service: 12/04/17 SOAP: Subjective: Mr. Bryant is a 62 yo male, left 5th CMC dislocation, 4th CMC intraarticular fracture, complicated by MRSA infection after previous pinning. Now s/p I&D 12/[address] Fowler, ORIF 5th CMC joint dislocation, ORIF 4th MC base fracture. Patient seen at bedside today. He was ambulating earlier today. He states pain not well controlled with tylenol. He is having reflux, takes pepto-bismol at home. No other complains. Objective: Vital Signs Temp 97.6 F 12/04/17 07:39 Pulse 85 12/04/17 07:39 Resp 17 12/04/17 07:39 BP 144/63 12/04/17 07:39 Pulse Ox 98 12/04/17 07:39 Intake & Output 12/03/17 12/04/17 12/04/17 18:59 06:59 18:59 Intake Total 320 1420 500 Output Total 725 Balance 320 695 500 Intake: IV Fluids 20 NS 20 IVPB 300 ABX - VANCOMYCIN 300 Oral 320 1100 500 Output: Urine 725 Other: Estimated Void Medium # Bowel Movements 0 # Voids 1 3 Laboratory Results - last 24 hr 12/04/17 07:20 BUN 12 Creatinine 0.99 Est GFR ( Amer) 93.0 Est GFR (Non-Af Amer) 76.9 Vancomycin Trough 15.7 General: WN, WD, NAD, AO LUE: Splint intact C/D/I, no erythema, significant swelling fingers. Able to wiggle fingers. No erythema proximal to splint. Brisk capillary refill, SITLT. Assessment: 62 y/o male s/p I&D 12/01/[address] Fowler, ORIF 5th CMC joint dislocation, ORIF 4th MC base fracture. Plan: - Continue IV vanco per ID, waiting PICC line - Added oxycodone 5 mg to pain regiment - Has maalox for GERD symptoms - Repeat x-rays 1-2 weeks in clinic
[2017-12-04] MEDS ORDERED: traMADol TAB* 50 MG PO PRN (10:39)
[2017-12-04] MEDS: Nystatin TOP POWDER* 15 GM BTL TOPICAL SCH ×2 (11:06→13:27)
[2017-12-04 11:54] VITALS: BP 167/113
--- NOTE | 2017-12-04 12:13 | PN ---
Subjective Date of Service: 12/04/17 Interval History: Pt seen and examined. Meds and labs reviewed. ROS: Denied TORUE/dizziness, F/C, N/V, CP, SOB, increased cough, sputum production , abd pain, diarrhea, constipation, dysuria, myalgias, arthralgias, throat pain , and new skin lesions. The rest of the 14 point ROS are unremarkable. GEN APPEARANCE: Awake, not in acute distress HEENT: NC/AT, PERRLA, moist oral mucosa, (-) throat erythema NECK: Soft, supple, (-) cervical LAD, (-)JVD HEART: S1S2 WNL, RRR, No MRG CHEST: CTA, BL, GAE, No W/R/R ABD: Soft, ND/NT, NABS 4x Q EXT: No C/C/LUE, wrapped with LAMINE bandages; RUE with erythematous and slightly edematous old IV access sites SKIN: Warm to touch PSYCH: No active psychosis, hallucinations, depression, SI/HI Objective Active Medications: Acetaminophen (Tylenol Tab*) 650 mg PO Q4H PRN PRN Reason: FEVER/PAIN Last Admin: 12/04/17 06:55 Dose: 650 mg Al Hydrox/Mg Hydrox/Simethicone (Maalox Plus*) 30 ml PO Q6H PRN PRN Reason: DYSPEPSIA Last Admin: 12/04/17 10:03 Dose: 30 ml Benztropine Mesylate (Cogentin Tab*) 0.5 mg PO BID [facility] Last Admin: 12/04/17 08:53 Dose: 0.5 mg Cetirizine HCl (Zyrtec*) 10 mg PO DAILY [facility] Last Admin: 12/04/17 08:53 Dose: 10 mg Diphenhydramine HCl (Benadryl Iv*) 25 mg IV Q6H PRN PRN Reason: itching Last Admin: 11/25/17 23:34 Dose: 25 mg Docusate Sodium (Colace Cap*) 100 mg PO BID PRN PRN Reason: CONSTIPATION Enalapril Maleate (Vasotec Tab*) 5 mg PO DAILY [facility] Last Admin: 12/04/17 08:53 Dose: 5 mg Fluticasone Propionate (Flonase Nasal Paige 50mcg*) 1 spray BOTH NARES BID [facility] Last Admin: 12/04/17 08:52 Dose: 1 spray Heparin Sodium (Porcine) (Heparin Vial(*)) 5,000 units SUBCUT Q12HR [facility] Last Admin: 12/04/17 08:54 Dose: 5,000 units Heparin Sodium (Porcine) (Heparin Flush Picc/Ml/Cvc(*)) 1 - 3 ml FLUSH 0600, 1800 [facility]; Protocol Last Admin: 12/04/17 10:57 Dose: 1 ml Vancomycin HCl 1,250 mg/ (Sodium Chloride) 250 mls @ 166.667 mls/hr IVPB 0800, 2000 [facility] Last Admin: 12/04/17 08:44 Dose: 166.667 mls/hr Levetiracetam (Keppra Tab*) 500 mg PO BID [facility] Last Admin: 12/04/17 08:53 Dose: 500 mg Magnesium Hydroxide (Milk Of Magnesia Liq*) 30 ml PO Q6H PRN PRN Reason: constipation Last Admin: 11/30/17 23:58 Dose: 30 ml Nystatin (Nystatin Top Powder*) 1 applic TOPICAL TID [facility] Last Admin: 12/04/17 11:06 Dose: 1 applic Omeprazole (Prilosec Cap*) 40 mg PO BEDTIME [facility] Last Admin: 12/03/17 20:03 Dose: 40 mg Perphenazine (Trilafon Tab*) 16 mg PO BID [facility] Last Admin: 12/04/17 08:53 Dose: 16 mg Pharmacy Consult (Vancomycin Per Pharmacy*) 1 note FOLLOW UP .VANC PER PHARMACY [facility] Pharmacy Profile Note (Vancomycin Trough Check) 1 note FOLLOW UP 0730 ONE Stop: 12/07/17 07:31 Polyethylene Glycol/Electrolytes (Miralax*) 17 gm PO 0800,2100 [facility] Last Admin: 12/04/17 08:54 Dose: 17 gm Quetiapine Fumarate (Seroquel Tab*) 300 mg PO BEDTIME [facility] Last Admin: 12/03/17 20:02 Dose: 300 mg Quetiapine Fumarate (Seroquel Tab*) 50 mg PO Q4H PRN PRN Reason: AGITATION Last Admin: 12/04/17 08:52 Dose: 50 mg Tramadol HCl (Ultram*) 50 mg PO Q6H PRN PRN Reason: PAIN Last Admin: 12/04/17 10:55 Dose: 50 mg Vital Signs - 8 hr 12/04/17 12/04/17 12/04/17 07:39 08:00 10:55 Temperature 97.6 F Pulse Rate 85 Respiratory 17 20 18 Rate Blood Pressure 144/63 (mmHg) O2 Sat by Pulse 98 98 Oximetry 12/04/17 11:49 Temperature 97.8 F Pulse Rate 96 Respiratory 16 Rate Blood Pressure 167/113 (mmHg) O2 Sat by Pulse 99 Oximetry Oxygen Devices in Use Now: None Result Diagrams: 12/03/17 06:30 12/04/17 07:20 Microbiology and Other Data: Microbiology 11/24/17 16:45 Gram Stain - Final Hand Left Wound Culture - Preliminary No Growth Day 1 Assess/Plan/Problems-Billing Assessment: 62 yo M with h/o schizophrenia , seizures, HTN (on no BP meds at home) s/p left hand surgery and pinning with post op infection - Patient Problems (1) Infection of left hand Current Visit: Yes Status: Acute Code(s): L08.9 - LOCAL INFECTION OF THE SKIN AND SUBCUTANEOUS TISSUE, UNSP SNOMED Code(s): 992622178 Comment: -S/P I&D of left wrist and open reduction with pinning of the fourth carpometacarpal fracture dislocation and the fifth carpometacarpal dislocation -Had open debridement of L wrist/hand 11/25 -Dr. Koch's consultation appreciated. -Vanco day #, with trough goal of: 15-20, currently at goal -PICC line placed yesterday -On D/C: weekly cbc, cmp, crp, vanco trough. Will follow with long course PO abx. (2) Hypertension, uncontrolled Current Visit: Yes Status: Acute Code(s): I10 - ESSENTIAL (PRIMARY) HYPERTENSION SNOMED Code(s): 73154068 Comment: -Continue Enalapril -Pt denied any significant post-op pain (3) Superficial thrombophlebitis Current Visit: Yes Status: Acute Code(s): I80.9 - PHLEBITIS AND THROMBOPHLEBITIS OF UNSPECIFIED SITE SNOMED Code(s): 3726288 Comment: -Warm compress and keep extremity elevated -No DVT detected on doppler (4) Schizophrenia Current Visit: Yes Status: Acute Code(s): F20.9 - SCHIZOPHRENIA, UNSPECIFIED SNOMED Code(s): 40741189 Comment: -Cont outpatient meds -Compensated. PRN quetiapine dose ordered. (5) Asthma Current Visit: Yes Status: Acute Code(s): J45.909 - UNSPECIFIED ASTHMA, UNCOMPLICATED SNOMED Code(s): 588190621 Comment: -Not in exacerbation, cont home meds (6) Seizure disorder Current Visit: Yes Status: Acute Code(s): G40.909 - EPILEPSY, UNSP, NOT INTRACTABLE, WITHOUT STATUS EPILEPTICUS SNOMED Code(s): 072926173 Comment: -No recent seizures reported, cont Keppra (7) Constipation Current Visit: Yes Status: Acute Code(s): K59.00 - CONSTIPATION, UNSPECIFIED SNOMED Code(s): 88004125 Comment: -Continue PEG. Staff charted 3 BM's for 11/29. -Improved (8) DVT prophylaxis Current Visit: Yes Status: Acute Code(s): VYF5211 - SNOMED Code(s): 043741352 Comment: -On Heparin SQq12 Status and Disposition: -Touched base with Ms. Marker; touched base with case management social worker -D/C to [place] when ready -No other recommendations and will sign out. Thank you for having us participate in pt's care and management
--- NOTE | 2017-12-04 13:50 | DS ---
AMENDED REPORT NOW INCLUDES COSIGNER DESIGNATION - ESIGNED BEFORE ADJUSTMENT DATE OF ADMISSION: 11/24/2017. DATE OF DISCHARGE: 12/04/2017. PROVIDER: Tessa Ramirez PA-C. ATTENDING PHYSICIAN: Dr. Karan Fowler * (dictated by Tessa Ramirez PA-C). CHIEF COMPLAINT: 1. Left wrist/left hand infection status post percutaneous pinning. 2. Hypertension. 3. Schizophrenia. 4. Asthma. 5. Seizure disorder. 6. Constipation. DISCHARGE DIAGNOSES: 1. Status post irrigation and debridement left wrist infection x2 and percutaneous pinning of the fourth and fifth carpometacarpal. 2. Hypertension. 3. Superficial thrombophlebitis. 4. Schizophrenia. 5. Asthma. 6. Seizure disorder. 7. Constipation. PROCEDURE: Irrigation and debridement left wrist on 11/25/2017 and irrigation and debridement left wrist with closed reduction percutaneous pinning of the fourth and fifth carpometacarpal on 12/01/2017. CONSULTATIONS: Infectious Disease, Medicine, Physical Therapy, Occupational Therapy. BRIEF HISTORY: Mr. Bryant is a 62-year-old male who had a percutaneous pinning on 11/03/[address] José Miguel Fragoso and presented to [facility] with signs of postoperative infection of his left hand. He underwent I&D with Dr. Karan Fowler on 11/25/2017 for a left wrist infection and on 12/01/2017 he had I&D as well as percutaneous pinning of the fourth carpometacarpal for fracture and dislocation and fifth carpometacarpal due to dislocation. HOSPITAL COURSE: Mr. Bryant is a 62-year-old male who had a percutaneous pinning on 11/03/[address] José Miguel Fragoso and presented to [facility] clinic with signs of postoperative infection of his left hand. He was admitted to [facility] on 11/24/2017. He underwent two I and D's as well as percutaneous pinning of the carpometacarpal joints on November 25 and December [address] Karan Fowler. Wound cultures were positive for MRSA. He was seen by Infectious Disease and started on IV Vancomycin. His comorbid medical conditions were managed by Medicine. His WBC counts normalized on November 30. He did have slight elevation of his white blood cell counts on December 02 but quickly returned to normal. Last Vancomycin trough was on 12/04/2017 and was 15.7. He has been participating in PT/OT. He was found to be stable to discharge to a half-way facility for continued IV antibiotic use as he does have some cognitive disabilities. On discharge from half-way facility, he will return to the intermediate where he lives, [facility] [place], [place]. PHYSICAL EXAMINATION: General: The patient is well-appearing and in no acute distress. He is ambulating well with a non-antalgic gait. Left upper extremity : Skin over the left fingers are intact. He does have an intact splint which is clean and dry. He has no erythema or warmth at his fingertips. He has brisk capillary refill. Sensation is grossly intact to light touch. He is able to wiggle his fingers on command. LABORATORY DATA: On the date of discharge, Vanco trough was 15.7, BUN was 12, creatinine was 0.99. On December 03, white blood cell count was 9.0, red blood cell count 4.5, hemoglobin 12.8, hematocrit 38, and platelet 307. DISCHARGE MEDICATIONS: 1. Enalapril 5 mg daily. 2. Acetaminophen 650 mg q.4 hours prn pain. 3. Artificial Tears one drop both eyes 3 times a day. 4. Aspirin 81 mg daily. 5. Astepro 0.1% one spray both nares b.i.d. 6. Bismuth 30 ml q.4 hours. 7. Claritin 10 mg at bedtime. 8. Cogentin 0.5 mg twice a day. 9. Docusate 200 mg daily. 10. Fluticasone 0.05% applied to both nares daily. 11. Heparin flush for his PICC line 1 to 3 ml twice daily after Vancomycin. 12. Ibuprofen 400 mg q.6 hours. 13. Keppra 500 mg twice a day. 14. Ketorolac 10 mg q.8 hours prn pain. 15. Maalox 30 ml q.4 hours prn gas. 16. MiraLax 17 gm twice daily. 17. Oxycodone 5/325 prn pain. 18. Prilosec 20 mg daily. 19. Seroquel 300 mg at bedtime. 20. Trilafon tab 16 mg twice daily. CONDITION ON DISCHARGE: Stable. DISCHARGE INSTRUCTIONS: Mr. Bryant is a 62-year-old male who was found to have MRSA positive left wrist percutaneous pin infection and is now status post I&D left wrist, with new percutaneous pinning of the fourth and fifth carpometacarpals of the fourth and fifth digits by Dr. Fowler. He is orthopedically and medically stable for discharge to the half-way facility for continued IV Vancomycin which he will continue. He is on day 10 of 42 of the Vancomycin. He will have weekly CBC, CMP, CRP, and Vanco trough. These should be conveyed to [facility], Dr. Koch, in [place]. He will also be followed by Dr. Fowler for progression of the healing of the fourth CMC interarticular fracture and will need to return to the clinic in seven to ten days for recheck and repeat x-rays. His splint should be kept clean, dry, and intact until follow-up with Dr. Fowler. He will plan to go back to the intermediate after discharge from the half-way facility on completion of the Vancomycin. ALVIN MOORE [id number]/[facility] #: [id number] DEVANTE
[2017-12-07] MEDS ORDERED: Vancomycin Trough Check NOTE FOLLOW UP ONE (07:30)
== END 2017-12-04 17:51 | DRG 711 ==
LOC: SSU 14:51
PROVIDERS: ADMIT Orthopaedic Surgery Hand Surgery; ATTEND Student in an Organized Health Care Education/Training Program
PROC: 0RBT0ZZ Excision of Left Carpometacarpal Joint, Open Approach (ICD-10-PCS; 2017-11-25)
PROC: 0PSN04Z Reposition Left Carpal with Internal Fixation Device, Open Approach (ICD-10-PCS; 2017-12-01)
PROC: 0RST04Z Reposition Left Carpometacarpal Joint with Internal Fixation Device, Open Approach (ICD-10-PCS; 2017-12-01)
PROC: 02HV33Z Insertion of Infusion Device into Superior Vena Cava, Percutaneous Approach (ICD-10-PCS; principal; 2017-12-04)
DX: T81.4XXA Infection following a procedure, initial encounter (principal); M86.142 Other acute osteomyelitis, left hand; M00.042 Staphylococcal arthritis, left hand; E78.5 Hyperlipidemia, unspecified; G40.909 Epilepsy, unspecified, not intractable, without status epilepticus; F20.9 Schizophrenia, unspecified; J45.909 Unspecified asthma, uncomplicated; K59.00 Constipation, unspecified; Y83.8 Other surgical procedures as the cause of abnormal reaction of the patient, or of later complication, without mention of misadventure at the time of the procedure; Y92.239 Unspecified place in hospital as the place of occurrence of the external cause; F31.9 Bipolar disorder, unspecified; K21.9 Gastro-esophageal reflux disease without esophagitis; N40.0 Benign prostatic hyperplasia without lower urinary tract symptoms; R62.50 Unspecified lack of expected normal physiological development in childhood; E11.9 Type 2 diabetes mellitus without complications; L08.9 Local infection of the skin and subcutaneous tissue, unspecified; B95.62 Methicillin resistant Staphylococcus aureus infection as the cause of diseases classified elsewhere; I80.9 Phlebitis and thrombophlebitis of unspecified site; E66.9 Obesity, unspecified; I10 Essential (primary) hypertension; S63.055A Dislocation of other carpometacarpal joint of left hand, initial encounter; Z83.3 Family history of diabetes mellitus; Z82.49 Family history of ischemic heart disease and other diseases of the circulatory system; Z90.49 Acquired absence of other specified parts of digestive tract; Z83.49 Family history of other endocrine, nutritional and metabolic diseases; Z68.30 Body mass index [BMI] 30.0-30.9, adult
CPT/HCPCS: 36415; 80048; 80053; 80202; 82565; 83605; 83735; 84100; 84520; 85025; 85027; 85610; 86140; 86141; 86803; 87070; 87073; 87205; 87640; 87641; 93005; A9270-GY; C1751; G8978-GP-CI; G8979-GP-CI; G8980-GP-CI; J1170; J1200; J1644; J2250; J2270; J2543; J2704; J3010; J3370

== ENCOUNTER 2018-01-21 13:34 | Day surgery (SDC) | payer MEDICAID ==
[~2018-01-21 13:34] MED LIST: Buffered Lidocaine 0.9% SYRIN* 5 ML/SYR SYRINGE INTRADERM ONE; Dexamethasone IV* 4 MG/ML 1 ML (4 MG) IV SLOW PU ONE; Dexamethasone IV* 4 MG/ML 1 ML (4 MG) ONE; Famotidine IV* 10 MG/ML 2 ML (20 mg) IV ONE; Famotidine IV* 10 MG/ML 2 ML (20 mg) ONE
[2018-01-21] MEDS ORDERED: ceFAZolin 2 GM PREMIX (*) 2 GM/50 ML BAG IVPB ONE (13:55)
[2018-01-21] MEDS ORDERED: fentaNYL* 50 MCG/ML 2 ML VIAL (100 MCG VIAL) ONE (14:04)
[2018-01-21] MEDS ORDERED: Midazolam* 1 MG/ML 2 ML VIAL (2 MG) ONE (14:04)
[2018-01-21] MEDS ORDERED: HYDROcodone/ACETAMIN 5-325 MG* 1 TAB PO PRN (14:10)
[2018-01-21] MEDS ORDERED: DiMENhydriNATE IV* 50 MG/ML VIAL IV PUSH PRN (14:10)
[2018-01-21] MEDS ORDERED: Naloxone* 0.4 MG/ML 1 ML VIAL IV PRN (14:10)
[2018-01-21] MEDS ORDERED: fentaNYL* 50 MCG/ML 2 ML VIAL (100 MCG VIAL) IV PRN (14:10)
[2018-01-21] MEDS ORDERED: oxyCODONE/Acetamin 5/325 MG* TAB PO PRN (14:10)
[2018-01-21] MEDS ORDERED: Labetalol IV* 5 MG/ML 20 ML VIAL ONE (16:50)
[2018-01-21] MEDS ORDERED: Bupivacaine 0.5% PF 10 ML VIAL INJ ONE (17:23)
[2018-01-21 17:40] VITALS: BP 143/80
--- NOTE | 2018-01-22 14:31 | RAD ---
INDICATION: Left hand removal of pins, S 63.055A COMPARISONS: January 13, 2018 TECHNIQUE: Fluoroscopy was provided for a surgical procedure. Total fluoroscopy time is: 8 seconds FINDINGS: There has been interval removal of percutaneous fixation pins. Again noted is comminuted fracture of the fifth metacarpal. IMPRESSION: FLUOROSCOPY WAS PROVIDED FOR A SURGICAL PROCEDURE CPT II Codes: G9500
--- NOTE | 2018-01-25 22:18 | OP ---
DATE OF OPERATION: 01/21/18 [facility] DATE OF : 57 SURGEON: Karan Fowler MD STEAM HEATING INSTALLER: None. ANESTHESIA: General. PRE-OP DIAGNOSIS: Retained buried pins status post prior surgery, left hand. POST-OP DIAGNOSIS: Retained buried pins status post prior surgery, left hand. OPERATIVE PROCEDURE: Removal of buried pins, left hand. INDICATIONS: Clovis had repair of subacute to chronic fifth CMC joint dislocation and fourth CMC joint fracture dislocation, this was all complicated by infection. After a week of infection under control, he was taken for repair. It has now been an appropriate amount of time, so he presents for pin removal. He understands the risk of infection, risk of stiffness in the hand as part of this ongoing condition. ESTIMATED BLOOD LOSS: 2 mL. COMPLICATIONS: None. FINDINGS: As expected. DESCRIPTION OF PROCEDURE: Clovis was seen in the preoperative holding area. After informed consent was obtained, he came back to the operating room where the hand was prepped and draped in the usual fashion. A time-out was performed. I began by first removing through a 1 cm incision the 2 distal pins. The incision was made in the ulnar mid axial line. The pins came out uneventfully. I then came more proximal and I removed the pin over the dorsum of the fourth CMC joint through a small stab incision with the #11 blade. I then turned my attention to the last pin which was the most buried and I made a 1 cm incision over the pin. I had to use mini C-arm to confirm where the pin was located. I spread down and so I could identify the pin. I then removed the pin. After this, I did manipulate all the joints. The hand was quite stiff, but I got it loosened up to the extent possible. Mini C-arm imaging confirmed removal of the pins. The wounds were then closed with 4-0 nylon suture. Everything was dressed with a soft dressing. Tourniquet was deflated, which had been used at 250 mmHg throughout the case. He was then woken up and taken to recovery room in stable condition. POSTOPERATIVE PLAN: I am going to let Clovis use the hand as tolerated. I am going to see him back in a couple of weeks' time to remove the stitches. Once we can get the hand loosened up to the extent possible, we will see how well the small finger functions and we will see if we can heal the fracture of the fifth small finger. If not, his only option may be an amputation. We have talked about this before. He will follow up at his next appointment. [id number]/[facility] #: [id number] DEVANTE
== END 2018-01-21 17:31 | disposition home or self-care (01) ==
LOC: OREAST 13:34
PROVIDERS: ATTEND Orthopaedic Surgery Hand Surgery
DX: S63.055D Dislocation of other carpometacarpal joint of left hand, subsequent encounter (principal); T81.4XXD Infection following a procedure, subsequent encounter; I10 Essential (primary) hypertension; E78.5 Hyperlipidemia, unspecified; E11.9 Type 2 diabetes mellitus without complications; F31.9 Bipolar disorder, unspecified; K21.9 Gastro-esophageal reflux disease without esophagitis; X58.XXXD Exposure to other specified factors, subsequent encounter; Y92.9 Unspecified place or not applicable
CPT/HCPCS: 76000; 88300; J0690; J1100; J2250; J3010